=== PATIENT | female | born 1995 | race Caucasian/White ===

== ENCOUNTER 2016-09-12 15:32 | Emergency (ER) | payer OTHER ==
[~2016-09-12] VITALS: Ht 152.4 cm; Wt 72.1 kg
[~2016-09-12 15:32] MED LIST: FERR1TAB13 PO; FOLI1TAB7 PO; LEVO50TA6 PO; METH2.5T PO; PROM25TA9 PO
[2016-09-12 15:46] VITALS: TEMP 36.9; Ht 152.4 cm; Wt 72.1 kg
[2016-09-12] MEDS ORDERED: ONDANSETRON INJ 2 MG/ML 2 ML VIAL IV STA ×2 (16:45→17:20)
[2016-09-12 16:55] LABS: URINE APPEARANCE CLEAR (CLEAR); URINE BILIRUBIN NEG (NEG); URINE COLOR YELLOW; URINE NITRITE NEG (NEG); URINE PH 6.5 (4.5-7.5); URINE SPECIFIC GRAVITY 1.006 (1.000-1.030); UROBILINOGEN NEG (NEG)
[2016-09-12 17:03] LABS: MANUAL MICROSCOPIC REQUIRED? NO; REVIEW REQ? NO
[2016-09-12 17:09] LABS: BASO % 0.3 %; BASO ABS # 0.02 K/uL (0-0.2); COMPLETE YES; EOS % 0.4 %; HEMATOCRIT 42.9 % (37-47); IG% 0.1 %; LYMPH % 36.3 %; MEAN CELL VOLUME 87.6 fL (80-100); MEAN CORPUSCULAR HGB CONC 34.3 g/dl (32-36); MEAN PLATELET VOLUME 9.2 fL (7.4-10.4); MONO % 8.3 %; NEUT % 54.6 %; PLATELET COUNT 418 K/uL (130-400); WHITE BLOOD COUNT 6.88 K/uL (4.8-10.8)
[2016-09-12] MEDS ORDERED: BCPILLS PO (17:15)
[2016-09-12] MEDS ORDERED: FERR325T5 PO (17:15)
[2016-09-12] MEDS ORDERED: METH2.5T PO (17:15)
[2016-09-12 17:33] LABS: ALT/SGPT 410 U/L (12-78); AST/SGOT 127 U/L (15-37); BLOOD UREA NITROGEN 7 mg/dl (7-18); BUN/CREATININE RATIO 7.7 (10-20); CALCIUM 9.3 mg/dl (8.5-10.1); CARBON DIOXIDE 26 mmol/L (21-32); CHLORIDE 102 mmol/L (98-107); CREATININE 0.87 mg/dl (0.60-1.20); GLUCOSE 84 mg/dl (70-99); POTASSIUM 3.5 mmol/L (3.5-5.1); SODIUM 139 mmol/L (136-145)
[2016-09-12 17:35] LABS: ALKALINE PHOSPHATASE 55 U/L (45-117)
[2016-09-12 18:21] LABS: PARTIAL THROMBOPLASTIN RATIO 1.1; PROTHROMBIN TIME (PATIENT) 10.3 SECONDS (9.0-12.0)
[2016-09-12] MEDS ORDERED: OPTIRAY 320 IV PRN (18:45)
[2016-09-12] MEDS ORDERED: MoRPHine SULFATE 2 MG/ML CARP IV STA (19:44)
--- NOTE | 2016-09-12 19:44 | DIAGNOSTIC IMAGING REPORT ---
ABDOMEN AND PELVIS CT WITH IV AND ORAL CONTRAST CT DOSE: 298.75 mGy.cm HISTORY: Flank pain eval for malcom TECHNIQUE: Multiaxial CT images of the abdomen and pelvis were performed following the use of intravenous and oral contrast. COMPARISON STUDY: None. FINDINGS: Lung bases are clear. The spleen and pancreas enhance uniformly. Kidneys negative for hydronephrosis. No evidence for gallbladder distention. Apparent thickening of several proximal small bowel loops in the left upper quadrant. This is most likely technical due to lack of distention. Several small reactive mesenteric nodes The appendix is normal. No evidence of bowel obstructive change. 1.5 cm right ovarian cyst. Bladder is midline. No significant free fluid within the pelvic cul-de-sac. IMPRESSION: 1. Normal appendix. 2. Nonobstructive bowel pattern. 3. Small right ovarian cyst. 4. Mild mesenteric adenitis. Electronically signed by: Sebas Crawford M.D. 09/12/2016 7:43 PM Dictated Date/Time: 09/12/2016 7:41 PM
[2016-09-12] MEDS ORDERED: KETOROLAC TROMETHAMINE 30 MG/ML VIAL IV STA (19:52)
[2016-09-12 20:13] VITALS: BP 120/78; PULSE 80; O2SAT 97
--- NOTE | 2016-09-12 20:22 | EMERGENCY ROOM VISIT NOTE ---
History Report prepared by Eldon: Cami Nguyen Under the Supervision of: Dr. En Jauregui M.D. First contact with patient: 16:37 Chief Complaint: ABDOMINAL PAIN Stated Complaint: LOWER RT ABD PAIN,HX OF APPEDICITIS Nursing Triage Summary: lower right abdominal pain. started in the middle of the night. denies n/v/d. I have a family hx of appy's and I want to get checked out History of Present Illness The patient is a 20 year old female who presents to the Emergency Room with complaints of constant sharp RLQ abdominal pain beginning last night. The patient states that the pain woke her up in the middle of the night and she was not able to go back to sleep. She notes that putting pressure on the area relieves her pain and releasing worsens the pain. She complains of nausea and worsening pain throughout the day. The patient notes that her pain has spread outward and is not as localized as it was last night. She denies any fever, vomiting, diarrhea, chance of , urinary symptoms, and abnormal vaginal discharge or bleeding. Source of History: patient Onset: last night Position: abdomen (RLQ) Quality: sharp Timing: constant Modifying Factors (Worsening): other (release) Modifying Factors (Relieving): other (pressure) Associated Symptoms: + nausea, No diarrhea, No fevers, No urinary symptoms, No vomiting Note: She denies any abnormal vaginal discharge or bleeding. Review of Systems See HPI for pertinent positives & negatives. A total of 10 systems reviewed and were otherwise negative. Past Medical & Surgical Medical Problems: (1) No chronic problems Family History Appendicitis \ Social History Smoking Status: Never Smoker Marital Status: single Housing Status: lives with roommate Occupation Status: [employer] student Current/Historical Medications Scheduled Control Pills ( Control Pills), 1 TAB PO DAILY Ferrous Sulfate (Ferrous Sulfate), 650 MG PO DAILY Folic Acid (Folvite), 1 MG PO DAILY Levothyroxine Sodium (Levothyroxine Sodium), 50 MCG PO DAILY Methotrexate Sodium (Methotrexate), 6 TAB PO WK Allergies Coded Allergies: No Known Allergies (Unverified , 06/24/16) Physical Exam Vital Signs Date Time Temp Pulse Resp B/P Pulse Ox O2 Delivery O2 Flow Rate FiO2 09/12/16 20:13 80 16 120/78 97 09/12/16 19:14 77 16 132/88 98 Room Air 09/12/16 17:46 82 16 126/77 97 Room Air 09/12/16 15:46 36.9 85 18 152/87 100 Physical Exam Constitutional: Vital signs reviewed. Eyes: Pupils are equal round reactive to light. Conjunctiva are noninjected. ENT: Pharynx is clear without erythema or exudate. Mucous membranes are moist. Neck supple without meningeal signs. Respiratory: Clear to auscultation bilaterally. Breath sounds are equal bilaterally. Cardiovascular: Regular rate and rhythm. No rubs or gallops. GI: Soft, nondistended. Bowel sounds are present. RLQ tenderness, no guarding or rebound. Musculoskeletal: No peripheral edema. No CVA tenderness. Integumentary: No cyanosis. Neurological: The patient is awake and alert. No focal deficits. Psychiatric: Normal affect. Medical Decision & Procedures ER Provider Diagnostic Interpretation: CT results as stated below per my review and radiologist interpretation. ABDOMEN AND PELVIS CT WITH IV AND ORAL CONTRAST FINDINGS: Lung bases are clear. The spleen and pancreas enhance uniformly. Kidneys negative for hydronephrosis. No evidence for gallbladder distention. Apparent thickening of several proximal small bowel loops in the left upper quadrant. This is most likely technical due to lack of distention. Several small reactive mesenteric nodes The appendix is normal. No evidence of bowel obstructive change. 1.5 cm right ovarian cyst. Bladder is midline. No significant free fluid within the pelvic cul-de-sac. IMPRESSION: 1. Normal appendix. 2. Nonobstructive bowel pattern. 3. Small right ovarian cyst. 4. Mild mesenteric adenitis. Electronically signed by: Sebas Crawford M.D. 09/12/2016 7:43 PM Dictated Date/Time: 09/12/2016 7:41 PM Laboratory Results 09/12/16 16:50 Red Blood Count 4.90, Mean Corpuscular Volume 87.6, Mean Corpuscular Hemoglobin 30.0, Mean Corpuscular Hemoglobin Concent 34.3, Mean Platelet Volume 9.2, Neutrophils (%) (Auto) 54.6, Lymphocytes (%) (Auto) 36.3, Monocytes (%) (Auto) 8.3, Eosinophils (%) (Auto) 0.4, Basophils (%) (Auto) 0.3, Neutrophils # (Auto) 3.75, Lymphocytes # (Auto) 2.50, Monocytes # (Auto) 0.57, Eosinophils # (Auto) 0.03, Basophils # (Auto) 0.02 09/12/16 16:50 Test 09/12/16 16:40 09/12/16 16:50 Urine Color YELLOW Urine Appearance CLEAR (CLEAR) Urine pH 6.5 (4.5-7.5) Urine Specific [place] 1.006 (1.000-1.030) Urine Protein NEG (NEG) Urine Glucose (UA) NEG (NEG) Urine Ketones NEG (NEG) Urine Occult Blood NEG (NEG) Urine Nitrite NEG (NEG) Urine Bilirubin NEG (NEG) Urine Urobilinogen NEG (NEG) Urine Leukocyte Esterase NEG (NEG) Urine Test NEG (NEG) White Blood Count 6.88 K/uL (4.8-10.8) Red Blood Count 4.90 M/uL (4.2-5.4) Hemoglobin 14.7 g/dL (12.0-16.0) Hematocrit 42.9 % (37-47) Mean Corpuscular Volume 87.6 fL (80-100) Mean Corpuscular Hemoglobin 30.0 pg (25-34) Mean Corpuscular Hemoglobin Concent 34.3 g/dl (32-36) Platelet Count 418 K/uL (130-400) Mean Platelet Volume 9.2 fL (7.4-10.4) Neutrophils (%) (Auto) 54.6 % Lymphocytes (%) (Auto) 36.3 % Monocytes (%) (Auto) 8.3 % Eosinophils (%) (Auto) 0.4 % Basophils (%) (Auto) 0.3 % Neutrophils # (Auto) 3.75 K/uL (1.4-6.5) Lymphocytes # (Auto) 2.50 K/uL (1.2-3.4) Monocytes # (Auto) 0.57 K/uL (0.11-0.59) Eosinophils # (Auto) 0.03 K/uL (0-0.5) Basophils # (Auto) 0.02 K/uL (0-0.2) RDW Standard Deviation 42.2 fL (36.4-46.3) RDW Coefficient of Variation 13.3 % (11.5-14.5) Immature Granulocyte % (Auto) 0.1 % Immature Granulocyte # (Auto) 0.01 K/uL (0.00-0.02) Prothrombin Time 10.3 SECONDS (9.0-12.0) Prothromb Time International Ratio 1.0 (0.9-1.1) Activated Partial Thromboplast Time 28.9 SECONDS (21.0-31.0) Partial Thromboplastin Ratio 1.1 Anion Gap 11.0 mmol/L (3-11) Est Creatinine Clear Calc Drug Dose 91.4 ml/min Estimated GFR () 111.1 Estimated GFR (Non- 95.9 BUN/Creatinine Ratio 7.7 (10-20) Calcium Level 9.3 mg/dl (8.5-10.1) Total Bilirubin 0.2 mg/dl (0.2-1) Direct Bilirubin < 0.1 mg/dl (0-0.2) Aspartate Amino Transf (AST/SGOT) 127 U/L (15-37) Alanine Aminotransferase (ALT/SGPT) 410 U/L (12-78) Alkaline Phosphatase 55 U/L (45-117) Total Protein 8.4 gm/dl (6.4-8.2) Albumin 4.1 gm/dl (3.4-5.0) Lipase 205 U/L (73-393) Acetaminophen Level < 2 ug/ml (10-30) Hepatitis B Surface Antigen NEG (NEG) Hepatitis C Antibody NEG (NEG) Laboratory results as reviewed by me. Medications Administered Medications (Trade) Dose Ordered Sig/Sara Route Start Time Stop Time Status Last Admin Dose Admin Ondansetron HCl (Zofran Inj) 4 mg NOW STAT IV 09/12/16 16:45 09/12/16 16:46 DC 09/12/16 16:59 4 MG Ondansetron HCl (Zofran Inj) 4 mg NOW STAT IV 09/12/16 17:20 09/12/16 17:21 DC 09/12/16 17:24 4 MG Ketorolac Tromethamine (Toradol Inj) 15 mg NOW STAT IV 09/12/16 19:52 09/12/16 19:53 DC 09/12/16 20:00 15 MG ED Course 1637: The patient was evaluated in room B4. A complete history and physical exam was performed. 1645: Zofran Inj 4mg IV. 1720: Zofran Inj 4mg IV. 1825: I spoke to the patient about her test results. 1951: Toradol Inj 15mg IV. 1951: I went over the results with the patient. 1954: Upon reevaluation, the patient appeared to have improvement of her symptoms. I discussed tonzeke's findings with the patient. She verbalized agreement of the treatment plan. The patient was discharged home. Medical Decision This is a 20-year-old female who presents with right lower quadrant abdominal pain. Differential diagnosis includes appendicitis, perforation, abscess, ovarian cyst, ectopic , irritable bowel syndrome, inflammatory bowel disease. I did perform a limited focused review of portions of the patient's old chart on the electronic medical record. The patient has had no recent pertinent visits to this hospital. I did evaluate the patient as noted above. She is presenting with right lower abdominal pain and is concerned about appendicitis. She does have tenderness in the right lower abdomen. IV access was established. I did treat the patient with Zofran IV 2. She declined any pain medicine. I did order and personally review the patient's urinalysis as described above. Urine test is negative. I did order and review the patient's blood work as noted in the electronic medical record. Her white blood cell count is not elevated. I did order a CT of the abdomen and pelvis. I did review the images myself as well as the radiology report as described above. There is no evidence of appendicitis. She does have a right ovarian cyst as well as signs of mesenteric adenitis. I did discuss the test results with the patient. She did request some pain medication at this time is given Toradol IV. She was advised to follow closely with her doctor or [facility] for reevaluation. She was given discharge instructions as outlined below. Impression Primary Impression: RLQ abdominal pain Additional Impressions: Ovarian cyst Mesenteric adenitis Scribe Attestation The scribe's documentation has been prepared under my direct and personally reviewed by me in its entirety. I confirm that the note above accurately reflects all work, treatment, procedures, and medical decision making performed by me. Departure Information Dispostion Home / Self-Care Referrals No Doctor, Assigned (PCP) Forms HOME CARE DOCUMENTATION FORM, IMPORTANT VISIT INFORMATION Patient Instructions ED Adenitis Mesenteric, ED Cyst Ovarian, [facility] Additional Instructions You have been examined and treated today on an emergency basis only. This is not a substitute for, or an effort to provide, complete comprehensive medical care. It is impossible to recognize and treat all injuries or illnesses in a single emergency department visit. It is therefore important that you follow up closely with [facility]. Call as soon as possible for an appointment. Return for worsening symptoms or if you develop fever, vomiting, or any other concerning symptoms. Problem Qualifiers Additional Impressions: Ovarian cyst Laterality: right Qualified Codes: N83.201 - Unspecified ovarian cyst, right side
[2016-09-23] MEDS ORDERED: ONDA8TAB62 SL (11:49)
== END 2016-09-12 20:14 | disposition home or self-care (01) ==
LOC: C.EDB 15:33
DX: R10.31 Right lower quadrant pain (principal); N83.201 Unspecified ovarian cyst, right side; I88.0 Nonspecific mesenteric lymphadenitis; R11.0 Nausea; Z79.3 Long term (current) use of hormonal contraceptives; Z79.899 Other long term (current) drug therapy

== ENCOUNTER 2016-09-16 00:41 | Inpatient (IN) | payer OTHER ==
[~2016-09-16] VITALS: Ht 152.4 cm; Wt 71.8 kg
[~2016-09-16 00:41] MED LIST changes: +BCPILLS PO; -FERR1TAB13 PO; +FERR325T5 PO; -PROM25TA9 PO
[2016-09-16] MEDS ORDERED: SODIUM CHLORIDE 0.9% 1000ML 1,000 ML IV STA (00:57)
[2016-09-16] MEDS ORDERED: ONDANSETRON INJ 2 MG/ML 2 ML VIAL IV STA (00:57)
[2016-09-16] MEDS ORDERED: MoRPHine SULFATE 10 MG/ML CARP/VIAL IV STA (00:57)
[2016-09-16 01:27] LABS: BASO % 0.1 %; BASO ABS # 0.01 K/uL (0-0.2); COMPLETE YES; EOS % 0.6 %; HEMATOCRIT 37.8 % (37-47); IG% 0.2 %; LYMPH % 18.8 %; LYMPH ABS # 1.61 K/uL (1.2-3.4); MEAN CELL VOLUME 86.7 fL (80-100); MEAN CORPUSCULAR HEMOGLOBIN 30.3 pg (25-34); MEAN CORPUSCULAR HGB CONC 34.9 g/dl (32-36); MEAN PLATELET VOLUME 8.9 fL (7.4-10.4); MONO % 8.5 %; NEUT % 71.8 %; PLATELET COUNT 384 K/uL (130-400); RED BLOOD COUNT 4.36 M/uL (4.2-5.4); WHITE BLOOD COUNT 8.58 K/uL (4.8-10.8)
[2016-09-16] MEDS ORDERED: CHOL1000 PO (01:29)
[2016-09-16 01:48] LABS: ALT/SGPT 125 U/L (12-78); AST/SGOT 20 U/L (15-37); BLOOD UREA NITROGEN 20 mg/dl (7-18); BUN/CREATININE RATIO 6.5 (10-20); CALCIUM 9.3 mg/dl (8.5-10.1); CARBON DIOXIDE 23 mmol/L (21-32); CHLORIDE 105 mmol/L (98-107); GLUCOSE 118 mg/dl (70-99); POTASSIUM 3.7 mmol/L (3.5-5.1); SODIUM 141 mmol/L (136-145)
[2016-09-16 01:51] LABS: ALKALINE PHOSPHATASE 53 U/L (45-117)
[2016-09-16] MEDS ORDERED: MAGNESIUM HYDROXIDE SUSP 30 ML UDC PO PRN (02:15)
[2016-09-16] MEDS ORDERED: ALUMINUM/MAGNESIUM/SIMETH (MAALOX MAX) 30 ML UDC PO PRN (02:15)
[2016-09-16] MEDS ORDERED: ACETAMINOPHEN 325 MG TAB PO PRN (02:15)
[2016-09-16 02:18] LABS: URINE APPEARANCE CLEAR (CLEAR); URINE BILIRUBIN NEG (NEG); URINE COLOR YELLOW; URINE EPITHELIAL CELL AUTO >30 /lpf (0-5); URINE NITRITE NEG (NEG); URINE PH 5.5 (4.5-7.5); URINE SPECIFIC GRAVITY 1.003 (1.000-1.030); UROBILINOGEN NEG (NEG); ZZUR CULT IF INDIC CLEAN CATCH NO
[2016-09-16 02:23] LABS: MANUAL MICROSCOPIC REQUIRED? NO; REVIEW REQ? NO
--- NOTE | 2016-09-16 02:23 | EMERGENCY ROOM VISIT NOTE ---
History Report prepared by Jagibbautista: Jaison Coronado Under the Supervision of: Dr. Scott Aceves M.D. First contact with patient: 00:49 Chief Complaint: ABDOMINAL PAIN Stated Complaint: LOWER ABD PAIN/BACK PAIN Nursing Triage Summary: Patient here Wednesday and dx with mesenteric adenitis. Tonight, pain is worsening. C/o abdominal pain with radiation into back. History of Present Illness The patient is a 20 year old female who presents to the Emergency Room with complaints of worsening bilateral lower abdominal pain beginning this week. She was seen in the ED three days ago for similar symptoms and was diagnosed with mesenteric adenitis. She denies any leg swelling, urinary symptoms, rashes, black or bloody stool, fevers, or chills. The patient states that her pain radiates into her lower back. She is on Methotrexate for rheumatoid arthritis, and states that she has been on it for about six months. She has taken Ibuprofen for her pain, but has seen minimal relief. The patient states that she has had a normal bowel movement today. She notes that she may have had neurovirus two weeks ago. She states that her mesenteric adenitis was identified by CT, and a unilateral ovarian cyst was also identified. Source of History: patient Onset: This week Position: abdomen (bilateral lower) Timing: worsening Associated Symptoms: + back pain, No chest pain, No fevers, No hematochezia , No melena, No rash Note: The patient denies any leg swelling. Review of Systems See HPI for pertinent positives & negatives. A total of 10 systems reviewed and were otherwise negative. Past Medical & Surgical Medical Problems: (1) Acute kidney failure (2) No chronic problems (3) Rheumatoid arthritis Family History Appendicitis Social History Smoking Status: Never Smoker Marital Status: single Housing Status: lives with roommate Occupation Status: [employer] student Current/Historical Medications Scheduled Control Pills ( Control Pills), 1 TAB PO DAILY Cholecalciferol (Vitamin D3), 1 TAB PO DAILY Ferrous Sulfate (Ferrous Sulfate), 650 MG PO DAILY Folic Acid (Folvite), 1 MG PO DAILY Levothyroxine Sodium (Levothyroxine Sodium), 50 MCG PO DAILY Methotrexate Sodium (Methotrexate), 6 TAB PO WK Allergies Coded Allergies: No Known Allergies (Unverified , 09/16/16) Physical Exam Vital Signs Date Time Temp Pulse Resp B/P Pulse Ox O2 Delivery O2 Flow Rate FiO2 09/16/16 02:17 79 18 136/83 96 Room Air 09/16/16 00:44 36.8 91 18 141/92 97 Room Air Physical Exam GENERAL: Patient is uncomfortable appearing and in mild distress. HEENT: No acute trauma, normocephalic atraumatic, mucous membranes are dry, no nasal congestion, no scleral icterus. NECK: No stridor, no adenopathy, no meningismus, trachea is midline. LUNGS: No dyspnea. Clear to auscultation and equal bilaterally. No wheeze, no rhonchi. HEART: Regular rate and rhythm. No murmurs, rubs, gallops appreciated. ABDOMEN: Diffuse mild tenderness throughout entire abdomen. Worse over lower abdomen. No rebound or guarding. Normal bowel sounds. No masses. BACK: No midline tenderness, no CVA tenderness EXTREMITIES: Normal motion all extremities, no cyanosis, no edema. NEUROLOGIC: Alert and oriented, no acute motor or sensory deficits, no focal weakness, cranial nerves grossly intact. SKIN: No rash, no jaundice, no diaphoresis. Medical Decision & Procedures Laboratory Results 09/16/16 01:05 Red Blood Count 4.36, Mean Corpuscular Volume 86.7, Mean Corpuscular Hemoglobin 30.3, Mean Corpuscular Hemoglobin Concent 34.9, Mean Platelet Volume 8.9, Neutrophils (%) (Auto) 71.8, Lymphocytes (%) (Auto) 18.8, Monocytes (%) (Auto) 8.5, Eosinophils (%) (Auto) 0.6, Basophils (%) (Auto) 0.1, Neutrophils # (Auto) 6.16, Lymphocytes # (Auto) 1.61, Monocytes # (Auto) 0.73, Eosinophils # (Auto) 0.05, Basophils # (Auto) 0.01 09/16/16 01:05 Test 09/16/16 01:05 09/16/16 02:05 White Blood Count 8.58 K/uL (4.8-10.8) Red Blood Count 4.36 M/uL (4.2-5.4) Hemoglobin 13.2 g/dL (12.0-16.0) Hematocrit 37.8 % (37-47) Mean Corpuscular Volume 86.7 fL (80-100) Mean Corpuscular Hemoglobin 30.3 pg (25-34) Mean Corpuscular Hemoglobin Concent 34.9 g/dl (32-36) Platelet Count 384 K/uL (130-400) Mean Platelet Volume 8.9 fL (7.4-10.4) Neutrophils (%) (Auto) 71.8 % Lymphocytes (%) (Auto) 18.8 % Monocytes (%) (Auto) 8.5 % Eosinophils (%) (Auto) 0.6 % Basophils (%) (Auto) 0.1 % Neutrophils # (Auto) 6.16 K/uL (1.4-6.5) Lymphocytes # (Auto) 1.61 K/uL (1.2-3.4) Monocytes # (Auto) 0.73 K/uL (0.11-0.59) Eosinophils # (Auto) 0.05 K/uL (0-0.5) Basophils # (Auto) 0.01 K/uL (0-0.2) RDW Standard Deviation 42.0 fL (36.4-46.3) RDW Coefficient of Variation 13.2 % (11.5-14.5) Immature Granulocyte % (Auto) 0.2 % Immature Granulocyte # (Auto) 0.02 K/uL (0.00-0.02) Anion Gap 13.0 mmol/L (3-11) Est Creatinine Clear Calc Drug Dose 25.6 ml/min Estimated GFR () 23.9 Estimated GFR (Non- 20.6 BUN/Creatinine Ratio 6.5 (10-20) Calcium Level 9.3 mg/dl (8.5-10.1) Total Bilirubin 0.3 mg/dl (0.2-1) Direct Bilirubin < 0.1 mg/dl (0-0.2) Aspartate Amino Transf (AST/SGOT) 20 U/L (15-37) Alanine Aminotransferase (ALT/SGPT) 125 U/L (12-78) Alkaline Phosphatase 53 U/L (45-117) Total Protein 7.5 gm/dl (6.4-8.2) Albumin 3.5 gm/dl (3.4-5.0) Lipase 142 U/L (73-393) Urine Color YELLOW Urine Appearance CLEAR (CLEAR) Urine pH 5.5 (4.5-7.5) Urine Specific [place] 1.003 (1.000-1.030) Urine Protein 2+ (NEG) Urine Glucose (UA) NEG (NEG) Urine Ketones NEG (NEG) Urine Occult Blood TRACE (NEG) Urine Nitrite NEG (NEG) Urine Bilirubin NEG (NEG) Urine Urobilinogen NEG (NEG) Urine Leukocyte Esterase NEG (NEG) Urine WBC (Auto) 1-5 /hpf (0-5) Urine RBC (Auto) 5-10 /hpf (0-4) Urine Hyaline Casts (Auto) 1-5 /lpf (0-5) Urine Epithelial Cells (Auto) >30 /lpf (0-5) Urine Bacteria (Auto) NEG (NEG) Urine Test NEG (NEG) Medications Administered Medications (Trade) Dose Ordered Sig/Sara Route Start Time Stop Time Status Last Admin Dose Admin Morphine Sulfate (MoRPHine SULFATE INJ) 6 mg NOW STAT IV 09/16/16 00:57 09/16/16 00:58 DC 09/16/16 01:26 6 MG Ondansetron HCl 4 mg 4 mg NOW STAT IV 09/16/16 00:57 09/16/16 00:58 DC 09/16/16 01:26 4 MG Sodium Chloride (Nss 1000ml) 1,000 ml @ 999 mls/hr Q1H1M STAT IV 09/16/16 00:57 09/16/16 01:57 DC 09/16/16 01:27 999 MLS/HR Ondansetron HCl (Zofran Inj) 4 mg Q6H PRN IV 09/16/16 02:15 10/16/16 02:14 09/16/16 02:50 4 MG ED Course 0052: The patient was evaluated in room A12B. A complete history and physical exam was performed. 0057: Ordered Sodium Chloride 1000 ml @ 999 mls/hr, Zofran 4 mg IV, Morphine Sulfate 6 mg IV. 0142: Upon reevaluation, the patient is resting comfortably. Discussed results and treatment plan with the patient. She verbalized understanding and agreement with the treatment plan. 0222: The patient will be evaluated for further management. Medical Decision Differential: Appendicitis, Diverticulitis, PUD/Gastritis, Biliary Pathology, UTI, Pyelonephritis, Renal Colic, Bowel Obstruction, Aortic Pathology, Acute Coronary Syndrome, amongst other pathologies entertained. 20 yr old female arrives with continued abdominal pain after being diagnosed with mesenteric adenitis 3 days earlier. Nonsurgical abdominal exam here though with continued pain felt reasonable getting repeat labs. Given morphine zofran fluids with improvement in pain. She has evidence of acute renal failure likely secondary to VLAD from combination dehydration (recent GI bug), NSAIDs, contrast and methotrexate she is on chronically. She otherwise looks quite well but with acute change in Cr I feel that bringing in for rehydration, nephro evals reasonable. She is stable without evidence of bacterial infection and has no peritonitis on examination. Consults Time Called: [phone] Consulting Physician: Dr. Sosa -[facility] [place] Returned Call: [phone] Discussed the patient's case. The patient will be evaluated for further treatment and disposition. Impression Primary Impression: VLAD (acute kidney injury) Additional Impression: Mesenteric adenitis Scribe Attestation The scribe's documentation has been prepared under my direction and personally reviewed by me in its entirety. I confirm that the note above accurately reflects all work, treatment, procedures, and medical decision making performed by me. Departure Information Dispostion Being Evaluated By Hospitalist Referrals No Doctor, Assigned (PCP) Patient Instructions [facility] Problem Qualifiers
[2016-09-16] MEDS ORDERED: SODIUM CHLORIDE 0.9% 1000ML 1,000 ML IV SCH (02:30)
--- NOTE | 2016-09-16 02:40 | History and Physical ---
History & Physical Date & Time of Service: Sep 16, 2016 at 02:26 Chief Complaint: Lower Abd Pain/Back Pain Primary Care Physician: [facility] History of Present Illness Source: patient This is a 20 yo f with RA on MTX that is presenting to us in VLAD. She was here on Sep 12 for abdominal pain and she was evaluation with a CT scan of the abdomen with contrast. She was also given a dose of Toradol. It was found that this pain may have been secondary to the mild mesenteric adenitis. She was d/c home. Since then she has had increasing pain in the RLQ which now affects the entire lower abdomen. She states it is a cramping like pain that waxes and wanes without aggravating/ alleviating factors. It was a 7/10 when she arrived and is now a 3/10. She has been using Ibuprofen for pain control, 200 mg q 8 hours. She has had no fever, joint pain, rash, change in U/O, change in BM, dizziness, chest pain or SOB. She mentions that she had norwalk virus 2 weeks prior. She has been taking MTX for an extended period of time for her RA. She follow with Dr Red in [facility]. She is due for her next dose of MTX on Wednesday. Past Medical/Surgical History Medical Problems: (1) No chronic problems Status: Resolved (2) Rheumatoid arthritis Status: Chronic Family History Appendicitis Social History Smoking Status: Never Smoker Smokeless Tobacco Use: No Alcohol Use: occasionally Drug Use: none Marital Status: single Occupational Status: [employer] student Allergies Coded Allergies: No Known Allergies (Unverified , 09/16/16) Home Medications Scheduled Control Pills ( Control Pills), 1 TAB PO DAILY Cholecalciferol (Vitamin D3), 1 TAB PO DAILY Ferrous Sulfate (Ferrous Sulfate), 650 MG PO DAILY Folic Acid (Folvite), 1 MG PO DAILY Levothyroxine Sodium (Levothyroxine Sodium), 50 MCG PO DAILY Methotrexate Sodium (Methotrexate), 6 TAB PO WK Review of Systems Constitutional: No fever Eyes: No worsening of vision Respiratory: No cough, No dyspnea at rest, No dyspnea on exertion, No shortness of breath, No sputum, No wheezing Cardiovascular: No chest pain Abdomen: + pain, + problem reported (decreased appetite), No constipation, No diarrhea, No nausea, No vomiting Musculoskeletal: No joint pain, No muscle pain Genitourinary - Female: No dysuria, No hematuria Endocrine: No fatigue Integumentary: No rash Physical Exam Vital Signs Date Time Temp Pulse Resp B/P Pulse Ox O2 Delivery O2 Flow Rate FiO2 09/16/16 00:44 36.8 91 18 141/92 97 Room Air General Appearance: WD/WN, no apparent distress Head: normocephalic, atraumatic Eyes: normal inspection ENT: normal ENT inspection Neck: supple Respiratory/Chest: lungs clear, normal breath sounds, no respiratory distress, no accessory muscle use Cardiovascular: regular rate, rhythm, no murmur Abdomen/GI: normal bowel sounds, non tender, soft, no organomegaly Back: normal inspection, no CVA tenderness Extremities/Musculoskelatal: no calf tenderness, no pedal edema, normal range of motion Neurologic/Psych: no motor/sensory deficits, alert, normal mood/affect, oriented x 3 Skin: normal color, warm/dry, no rash Lymphatic: no adenopathy Diagnostics Laboratory Results Results Past 24 Hours Test 09/16/16 01:05 09/16/16 02:05 Range/Units White Blood Count 8.58 4.8-10.8 K/uL Red Blood Count 4.36 4.2-5.4 M/uL Hemoglobin 13.2 12.0-16.0 g/dL Hematocrit 37.8 37-47 % Mean Corpuscular Volume 86.7 80-100 fL Mean Corpuscular Hemoglobin 30.3 25-34 pg Mean Corpuscular Hemoglobin Concent 34.9 32-36 g/dl Platelet Count 384 130-400 K/uL Mean Platelet Volume 8.9 7.4-10.4 fL Neutrophils (%) (Auto) 71.8 % Lymphocytes (%) (Auto) 18.8 % Monocytes (%) (Auto) 8.5 % Eosinophils (%) (Auto) 0.6 % Basophils (%) (Auto) 0.1 % Neutrophils # (Auto) 6.16 1.4-6.5 K/uL Lymphocytes # (Auto) 1.61 1.2-3.4 K/uL Monocytes # (Auto) 0.73 0.11-0.59 K/uL Eosinophils # (Auto) 0.05 0-0.5 K/uL Basophils # (Auto) 0.01 0-0.2 K/uL RDW Standard Deviation 42.0 36.4-46.3 fL RDW Coefficient of Variation 13.2 11.5-14.5 % Immature Granulocyte % (Auto) 0.2 % Immature Granulocyte # (Auto) 0.02 0.00-0.02 K/uL Sodium Level 141 136-145 mmol/L Potassium Level 3.7 3.5-5.1 mmol/L Chloride Level 105 98-107 mmol/L Carbon Dioxide Level 23 21-32 mmol/L Anion Gap 13.0 3-11 mmol/L Blood Urea Nitrogen 20 7-18 mg/dl Creatinine 3.10 0.60-1.20 mg/dl Est Creatinine Clear Calc Drug Dose 25.6 ml/min Estimated GFR () 23.9 Estimated GFR (Non- 20.6 BUN/Creatinine Ratio 6.5 10-20 Random Glucose 118 70-99 mg/dl Calcium Level 9.3 8.5-10.1 mg/dl Total Bilirubin 0.3 0.2-1 mg/dl Direct Bilirubin < 0.1 0-0.2 mg/dl Aspartate Amino Transf (AST/SGOT) 20 15-37 U/L Alanine Aminotransferase (ALT/SGPT) 125 12-78 U/L Alkaline Phosphatase 53 45-117 U/L Total Protein 7.5 6.4-8.2 gm/dl Albumin 3.5 3.4-5.0 gm/dl Lipase 142 73-393 U/L Urine Color YELLOW Urine Appearance CLEAR CLEAR Urine pH 5.5 4.5-7.5 Urine Specific [place] 1.003 1.000-1.030 Urine Protein 2+ NEG Urine Glucose (UA) NEG NEG Urine Ketones NEG NEG Urine Occult Blood TRACE NEG Urine Nitrite NEG NEG Urine Bilirubin NEG NEG Urine Urobilinogen NEG NEG Urine Leukocyte Esterase NEG NEG Urine WBC (Auto) 1-5 0-5 /hpf Urine RBC (Auto) 5-10 0-4 /hpf Urine Hyaline Casts (Auto) 1-5 0-5 /lpf Urine Epithelial Cells (Auto) >30 0-5 /lpf Urine Bacteria (Auto) NEG NEG Urine Test NEG NEG Diagnostic Radiology [~ rep ct add3]] ABDOMEN AND PELVIS CT WITH IV AND ORAL CONTRAST CT DOSE: 298.75 mGy.cm HISTORY: Flank pain eval for malcom TECHNIQUE: Multiaxial CT images of the abdomen and pelvis were performed following the use of intravenous and oral contrast. COMPARISON STUDY: None. FINDINGS: Lung bases are clear. The spleen and pancreas enhance uniformly. Kidneys negative for hydronephrosis. No evidence for gallbladder distention. Apparent thickening of several proximal small bowel loops in the left upper quadrant. This is most likely technical due to lack of distention. Several small reactive mesenteric nodes The appendix is normal. No evidence of bowel obstructive change. 1.5 cm right ovarian cyst. Bladder is midline. No significant free fluid within the pelvic cul-de-sac. IMPRESSION: 1. Normal appendix. 2. Nonobstructive bowel pattern. 3. Small right ovarian cyst. 4. Mild mesenteric adenitis. Impression Assessment and Plan This is a 20 yo f with VLAD/ ATN possibly secondary to an iatrogenic source. VLAD secondary to an iatrogenic source - MTX held for now as is nephrotoxic - combination of this along with IV contrast and Toradol possible cause? - HIM - chart from [facility] in [place] - Consult nephro - NSS bolus and maintenance @ 200cc/h - BMP in am - renal USG Abdominal pain possibly secondary to mesenteric adenitis - morphine for pain control prn - Zofran for nausea - consult GI Rheumatoid arthritis - MTX held for now Hypothyroidism - Continue levothyroxine DVt Prophylaxis - scd FULL CODE Level of Care Med/Surg Resuscitation Status FULL RESUSCITATION VTE Prophylaxis VTE Risk Assessment Done? Y/N: Yes Risk Level: Low Given or contraindicated: SCD's Social Service Consult None Apply Note Total Time: Critical Care 30 - 74 minutes Assessment and Plan Attending Addendum: I have physically seen and examined this patient, have directed their medical care, have supervised the medical residents activities, and agree with the H&P as noted above, with the following changes: NONE The patient is a 20-year-old female with rheumatoid arthritis on methotrexate for 6 months, who developed abdominal discomfort and was seen in the emergency department here on September 12, at which time she had a CT scanner the abdomen with contrast, was diagnosed with a mild case a mesenteric adenitis, had been given a dose of Toradol, and was taking ibuprofen 200 mg 3 times daily in the interim. On the day of admission she developed significantly more abdominal discomfort and returned to the emergency department, at which time today her creatinine has significantly worsened to 3.1, her pain is controlled by morphine , and she is referred for evaluation for admission. She continues to have symptoms of nausea ,dizziness and headache accompanying the abdominal discomfort while in the emergency department. The patient denies chest pain, palpitations, shortness of breath, cough, lower extremity swelling, vision change, hearing change, sore throat, fevers, chills, sweats, weight change, vomiting, blood in urine or stool, dysuria, urinary frequency or urgency, memory loss, rash, abnormal bruising or bleeding, imbalance, focal weakness, numbness or tingling in arms or legs, arthralgias or myalgias, back or neck pain , night sweats, or allergy symptoms. The review of systems is otherwise negative other than for that already noted above, and at least 10 systems have been reviewed. The patient is awake, well-developed and adequately nourished, alert and oriented 3, normocephalic and atraumatic, lying in bed and in no acute distress. HEENT--PERRL, EOMI, mucous membranes and oropharynx dry. Neck--supple, no JVD or bruits, thyroid normal, trachea midline, no adenopathy. Heart--normal S1 and S2, no extra beats, no murmurs, rubs or gallops. Lungs--clear bilaterally with good air movement, no respiratory distress, no accessory muscle use. Abdomen--normal bowel sounds and soft, nontender and nondistended post morphine IV, no hernias or masses, no organomegaly. Extremities--no cyanosis, clubbing or edema. There are good distal pulses b/l. Dermatologic--normal skin turgor, normal color, warm and dry, no abnormal lymph nodes, no rash. Neurologic--cranial nerves II through XII grossly intact, motor and sensory examination normal. Rheumatologic--normal range of motion, nontender, muscles and joints. Psychiatric--normal affect. Assessment and Plan: Abdominal pain--patient will be admitted to the medical floor. Likely causes include the previously diagnosed mesenteric adenitis, would also consider NSAID- induced gastritis and/or ulcers. We'll keep her nothing by mouth, place her on Protonix 40 mg IV daily, and consult gastroenterology. Acute renal failure, likely secondary to ATN due to exposure to IV contrast dye along with NSAIDs--the patient be aggressively hydrated with IV fluids. We'll order a renal ultrasound. We'll consult nephrology. Urinalysis and urine culture is pending at this time. Abnormal liver enzymes--may be secondary to methotrexate, secondary to NSAID use , possibly secondary to underlying mesenteric adenitis.. Liver enzymes are presently improved from 410-125 over the past 4 days, but were normal in June 2016.
[2016-09-16] MEDS: ONDANSETRON INJ 2 MG/ML 2 ML VIAL IV PRN ×2 (02:50→10:16)
[2016-09-16 02:55] VITALS: BP 137/88; PULSE 67; TEMP 37.1; O2SAT 98
[2016-09-16] MEDS ORDERED: TRAMADOL HCL 50 MG TAB PO PRN (03:00)
[2016-09-16] MEDS ORDERED: MoRPHine SULFATE 4 MG/ML 1 ML CARP\\VIAL IV PRN (03:00)
[2016-09-16] MEDS: SODIUM CHLORIDE 0.9% 1000ML 1,000 ML IV SCH ×4 (03:56→20:28)
[2016-09-16 04:09] VITALS: Ht 152.4 cm; Wt 71.8 kg
[2016-09-16] MEDS: LEVOTHYROXINE 50 MCG TAB PO SCH (05:40)
[2016-09-16] MEDS ORDERED: INFLUENZA VIRUS QUAD VACCINE 0.5 ML SYR IM. ONE (07:00)
[2016-09-16] MEDS ORDERED: INFLUENZA ADMINISTRATION CHARGE ONE (07:00)
--- NOTE | 2016-09-16 07:20 | DIAGNOSTIC IMAGING REPORT ---
ULTRASOUND KIDNEYS AND BLADDER CLINICAL HISTORY: Acute renal insufficiency.. COMPARISON STUDY: Abdominal CT dated 09/12/16. TECHNIQUE: Real-time, grayscale, and color flow sonography of the kidneys and bladder is performed. Images are reviewed in the transverse and longitudinal planes. FINDINGS: Kidneys: The kidneys are normal in size and demonstrate slightly increased echotexture. The right kidney measures 11.2 x 5.7 x 5.7 cm and the left kidney measures 11.2 x 5.3 x 5.8 cm. There is no hydronephrosis. No shadowing renal calculi are identified. There is no sonographic evidence of contour deforming renal mass lesion. No perinephric fluid is identified. Bladder: The bladder is normal in appearance. Bilateral ureteral jets were seen. Upper abdomen: Survey images of the liver demonstrates hepatic steatosis. IMPRESSION: 1. The kidneys are normal in size and without hydronephrosis. 2. The kidneys demonstrate slightly increased cortical echotexture suggesting medical renal disease. Clinical correlation will be required. 3. The bladder is normal as visualized. 4. Hepatic steatosis. Electronically signed by: Avery Birch M.D. 09/16/2016 7:18 AM Dictated Date/Time: 09/16/2016 7:16 AM
[2016-09-16] MEDS ORDERED: NURSING VERBAL MED ORDER ONE (07:30)
[2016-09-16] MEDS ORDERED: MoRPHine SULFATE 2 MG/ML CARP ONE (07:35)
[2016-09-16] MEDS: MoRPHine SULFATE 2 MG/ML CARP IV PRN ×4 (07:39→18:39)
[2016-09-16] MEDS: FERROUS SULFATE 325 MG TAB PO SCH (07:40)
[2016-09-16] MEDS: BCP'S~ORDER AWAITING ACTION SCH ×2 (07:40→15:25)
[2016-09-16] MEDS: CHOLECALCIFEROL 1000 INTER.UNIT TAB PO SCH ×2 (07:43→10:13)
[2016-09-16 08:05] VITALS: BP 122/83; PULSE 59; TEMP 36.6; O2SAT 98
--- NOTE | 2016-09-16 08:27 | Gastroenterology Progress Note ---
Progress Note Date of Service: Sep 16, 2016 Subjective Pt evaluation today including: conversation w/ patient, physical exam, chart review, lab review, review of studies, review of inpatient medication list Medications Current Inpatient Medications Medications (Trade) Dose Ordered Sig/Sara Route Start Time Stop Time Status Last Admin Dose Admin Al Hydrox/Mg Hydrox/Simethicone (Maalox Max Susp) 15 ml Q4H PRN PO 09/16/16 02:15 10/16/16 02:14 Magnesium Hydroxide (Milk Of Magnesia Susp) 30 ml Q6H PRN PO 09/16/16 02:15 10/16/16 02:14 Ondansetron HCl (Zofran Inj) 4 mg Q6H PRN IV 09/16/16 02:15 10/16/16 02:14 09/16/16 02:50 4 MG Cholecalciferol (Vitamin D Tab) 1,000 inter.unit DAILY PO 09/16/16 09:00 10/16/16 08:59 09/16/16 07:43 1,000 INTER.UNIT Ferrous Sulfate (Feosol Tab) 650 mg DAILY PO 09/16/16 09:00 10/16/16 08:59 Folic Acid (Folvite Tab) 1 mg DAILY PO 09/16/16 09:00 10/16/16 08:59 Levothyroxine Sodium (Synthroid Tab) 50 mcg DAILYBB PO 09/16/16 06:00 10/16/16 05:59 09/16/16 05:40 50 MCG Miscellaneous Information 1 ea 1 ea QS N/A 09/16/16 08:00 10/16/16 07:59 Sodium Chloride 1,000 ml @ 200 mls/hr Q5H IV 09/16/16 03:15 09/16/16 18:14 09/16/16 07:54 200 MLS/HR Pantoprazole Sodium/Syringe (Protonix Inj/ Syringe) 10 ml @ 5 mls/min DAILY@11 IV 09/16/16 11:00 10/16/16 10:59 Morphine Sulfate (MoRPHine SULFATE INJ) 2 mg Q3H PRN IV 09/16/16 07:45 09/30/16 07:44 09/16/16 07:39 2 MG Objective Vital Signs Date Time Temp Pulse Resp B/P Pulse Ox O2 Delivery O2 Flow Rate FiO2 09/16/16 04:28 Room Air 09/16/16 04:09 Room Air 09/16/16 02:55 37.1 67 16 137/88 98 Room Air 09/16/16 02:17 79 18 136/83 96 Room Air 09/16/16 00:44 36.8 91 18 141/92 97 Room Air Laboratory Results Last 24 Hours Test 09/16/16 01:05 09/16/16 02:05 09/16/16 07:50 White Blood Count 8.58 K/uL Red Blood Count 4.36 M/uL Hemoglobin 13.2 g/dL Hematocrit 37.8 % Mean Corpuscular Volume 86.7 fL Mean Corpuscular Hemoglobin 30.3 pg Mean Corpuscular Hemoglobin Concent 34.9 g/dl Platelet Count 384 K/uL Mean Platelet Volume 8.9 fL Neutrophils (%) (Auto) 71.8 % Lymphocytes (%) (Auto) 18.8 % Monocytes (%) (Auto) 8.5 % Eosinophils (%) (Auto) 0.6 % Basophils (%) (Auto) 0.1 % Neutrophils # (Auto) 6.16 K/uL Lymphocytes # (Auto) 1.61 K/uL Monocytes # (Auto) 0.73 K/uL Eosinophils # (Auto) 0.05 K/uL Basophils # (Auto) 0.01 K/uL RDW Standard Deviation 42.0 fL RDW Coefficient of Variation 13.2 % Immature Granulocyte % (Auto) 0.2 % Immature Granulocyte # (Auto) 0.02 K/uL Sodium Level 141 mmol/L Potassium Level 3.7 mmol/L Chloride Level 105 mmol/L Carbon Dioxide Level 23 mmol/L Anion Gap 13.0 mmol/L Blood Urea Nitrogen 20 mg/dl Creatinine 3.10 mg/dl Est Creatinine Clear Calc Drug Dose 25.6 ml/min Estimated GFR () 23.9 Estimated GFR (Non- 20.6 BUN/Creatinine Ratio 6.5 Random Glucose 118 mg/dl Calcium Level 9.3 mg/dl Total Bilirubin 0.3 mg/dl Direct Bilirubin < 0.1 mg/dl Aspartate Amino Transf (AST/SGOT) 20 U/L Alanine Aminotransferase (ALT/SGPT) 125 U/L Alkaline Phosphatase 53 U/L Total Protein 7.5 gm/dl Albumin 3.5 gm/dl Lipase 142 U/L Urine Color YELLOW Urine Appearance CLEAR Urine pH 5.5 Urine Specific [place] 1.003 Urine Protein 2+ Urine Glucose (UA) NEG Urine Ketones NEG Urine Occult Blood TRACE Urine Nitrite NEG Urine Bilirubin NEG Urine Urobilinogen NEG Urine Leukocyte Esterase NEG Urine WBC (Auto) 1-5 /hpf Urine RBC (Auto) 5-10 /hpf Urine Hyaline Casts (Auto) 1-5 /lpf Urine Epithelial Cells (Auto) >30 /lpf Urine Bacteria (Auto) NEG Urine Test NEG Assessment and Plan GI consult dictated job: [id number] Lower abd pain-- elevated LFTs Abnormal SB on CT---proximal SB thickening LUQ small reactive lymph nodes on CT Etiology not clear. Differential includes viral etiology, Crohns disease less likely with abrupt onset. Doubt ischemic bowel with improving pain and nl CO2 but check lactic acid. Check titers for CMV, Monospot. Supportive care and if problems persist suggest SB evaluation with SBFT or colonoscopy to start. renal failure per hospitalist
[2016-09-16 08:34] LABS: BUN/CREATININE RATIO 6.3 (10-20); CALCIUM 8.3 mg/dl (8.5-10.1); CREATININE 2.9 mg/dl (0.60-1.20)
--- NOTE | 2016-09-16 09:03 | GASTROINTESTINAL CONSULTATION ---
DATE OF CONSULTATION: 09/16/2016 DATE OF CONSULTATION: 09/16/2016. REASON FOR CONSULTATION: Mesentery adenitis, worsening abdominal pain. CHIEF COMPLAINT OF PATIENT: Abdominal pain. HISTORY OF PRESENT ILLNESS: The patient stated that she had abrupt onset of right lower quadrant pain in the middle of the night, went to the Emergency Room 09/12/2016 with this complaint. At that time, CMP showed AST 127, ALT 410, otherwise normal. Lipase was normal. Abdomen and pelvic CT scan showed some thickened proximal small bowel loops in the left upper quadrant, some small reactive nodes, mesenteric adenitis, also 1.5 cm right ovarian cyst. The patient was sent home with the diagnosis of mesenteric adenitis. She was taking some ibuprofen but her pain persisted and became acutely worse. It was about 7/10 and became bilateral lower abdominal pain. She came into the Emergency Room again and was admitted. LFTs are better on admission. ALT with 118, otherwise unremarkable however creatinine was elevated at 3.1. The patient stated that she is drinking liquids fine but not eating as much. She had no dysphagia, no change in daily bowel movements. No bloody stools, no black stools. Abdominal pain is worse with eating. No history of liver disease. No GERD. No EGD or colonoscopy or need for GI care in the past. She is on methotrexate for rheumatoid arthritis, she had done so for several months. She did state that 2 weeks ago she had diarrheal illness with fever to 100.8 and some vomiting which resolved completely prior to this episode. PAST MEDICAL HISTORY: ALLERGIES: None. MEDICATIONS ON ADMISSION: Methotrexate, control pills, vitamin D3, iron, levothyroxine. PROBLEMS AND SURGERY: Rheumatoid arthritis. She has had a T\T\A in the past. She had Yi's thyroiditis. She has had left wrist arthroscopy. FAMILY HISTORY: Appendicitis. SOCIAL HISTORY: Tobacco negative, ethanol occasionally. REVIEW OF SYSTEMS: CONSTITUTIONAL: Weak. Eyes negative. EARS, NOSE, MOUTH, THROAT: Negative. CARDIOVASCULAR, RESPIRATORY, GENITOURINARY: Negative. MUSCULOSKELETAL: Arthritis. INTEGUMENTARY/NEUROLOGIC/ENDOCRINE, HEMATOLOGIC: Negative. PHYSICAL EXAMINATION: GENERAL: Female, appears stated age in no acute distress. VITAL SIGNS: Most recent vital signs in the chart, temp 37.1, pulse 67, respirations 16, BP 137/88, O2 saturation 98% on room air. EYES: Conjunctivae and lids normal. EARS, NOSE, THROAT: Oropharynx clear. NECK: Without obvious mass or thyroid enlargement. RESPIRATORY: Normal effort, clear to anterior auscultation. CARDIOVASCULAR: Regular rate and rhythm. EXTREMITIES: Without edema. ABDOMEN: Positive bowel sounds, soft, no guarding or rebound. No obvious organomegaly or masses are appreciated. Entire exam done with RN present. LYMPH NODES: No neck nor groin nodes. SKIN: Without obvious rash or induration. NEUROLOGIC: Cranial nerves intact. Sensation intact. PSYCHIATRIC: Recent and remote memory good. Insight and judgment good. DATA: Abdominal and pelvic CT scan from 09/12/2016 as above. Ultrasound kidneys and bladder this admission some renal disease, fatty liver. IMPRESSION AND PLAN: 1. Lower abdominal pain. 2. Elevated LFTs. 3. Abnormal small bowel on CT scan with proximal small thickening left upper quadrant. 4. Small reactive lymph node with CT. 5. Renal failure per hospitalist. PLAN: The etiology is not clear. The differential includes viral etiology, Crohn's disease less likely with abrupt onset. Doubt ischemic bowel with nl CO2 and improving pain but check lactate level. Check titers for CMV and Monospot, supportive care. If the problem persists suggest small bowel evaluation with small bowel follow through or colonoscopy as next steps. MTDD
[2016-09-16 09:20] LABS: ALKALINE PHOSPHATASE 43 U/L (45-117); ALT/SGPT 96 U/L (12-78); AST/SGOT 19 U/L (15-37)
[2016-09-16] MEDS: PANTOprazole INJ 40 MG in SYRINGE 0 ML IV SCH (10:14)
--- NOTE | 2016-09-16 11:59 | Family Medicine Progress Note ---
Progress Note Date of Service Sep 16, 2016. Subjective Pt evaluation today including: conversation w/ patient, physical exam, chart review, lab review The patient was seen and examined at bedside. Patient was admitted as NPO as of midnight. Denies being hungry. Complaining of continued abdominal pain that was lessened by morphine. Last received 3mg morphine at 4am, says that the morphine is wearing off. Patient is resting comfortably in bed. Continues to have moderate diffuse lower abdominal pain. Pt denies any other systemic symptoms (Fever, SOB, edema , chest pain, diarrhea, constipation). Plan of care was described to the patient and all questions were answered. Constitutional: No chills, No fever, No sweats Respiratory: No cough, No shortness of breath, No sputum, No wheezing Cardiovascular: No chest pain Abdomen: + nausea, + pain, No constipation, No diarrhea, No vomiting Neurologic: No memory loss, No numbness/tingling, No weakness Objective Physical Exam General Appearance: WD/WN, + mild distress Respiratory/Chest: chest non-tender, lungs clear, normal breath sounds, no respiratory distress, no accessory muscle use Cardiovascular: regular rate, rhythm, no edema, no gallop, no JVD, no murmur Abdomen: soft, + pertinent finding (Tender to light palpation in the RLQ, periumbilical and LLQ. No signs of rebound tenderness. Psoas sign negative. Normal bowel sounds. No discolorations or excoriations. No gaurding. ) Extremities: normal range of motion, non-tender, normal inspection, no pedal edema, no calf tenderness Neurologic/Psychiatric: alert, normal mood/affect, oriented x 3 Assessment and Plan 20F with PMH of RA on MTX presented into the ER with continued abdominal pain and was admitted for VLAD (creatinine 3.1) and continued abdominal pain. She was seen in the ER 4 days ago and was diagnosed with mesenteric adenitis. At that time she received a CT Abdo and Pelvis with contrast, IV toradol and has been taking Iburpofen 200mg TID for her pain. On admission pt was given Morphine IV PRN and a GI and nephrology consult were ordered. She is on 200ml NSS and her diet is clear fluids to advance as tolerated. No acute interventions plan at this point. Abdominal pain etiology unclear - Pt continues to have diffuse lower abdominal pain, not getting better. - Morphine increased to 2mg Q3 from 3mg Q4 PRN. - GI recommends - unlikely crohn's or ischemia, f/u Lactate, CMV, Monospot test and if pain doesn't improve UE to SB or lower endoscopy. - c/w Protonix 40mg IV daily. - c/w Zofran PRN for nausea. - continue to monitor. LVAD 2/2 to NSAIDS - Creatinine is 2.9<--3.1 - MTX held for now as is nephrotoxic, she is due for her next dose on Wednesday, receives it weekly. - HIM - chart from [facility] in [place] - Nephro consult pending. - Renal US report - 1. The kidneys are normal in size and without hydronephrosis. 2. The kidneys demonstrate slightly increased cortical echotexture suggesting medical renal disease. Clinical correlation will be required. 3. The bladder is normal as visualized. 4. Hepatic steatosis. - will repeat UA and Micro. - c/w NSS bolus and maintenance @ 200cc/h. - Continue to monitor creatinine. Elevated ALT - Unknown cause, patient is on OCPs, were normal in June, f/u toxicology screen. Rheumatoid arthritis - MTX held for now, NO NSAIDS. Hypothyroidism- c/w levothyroxine 50mcg. DVT Proph: Lovenox SQ daily, SCDs. Dispo: FULL CODE, mom is driving in from [place] today. Resident Involvement: Resident Care Provided Care Provided: Adult Hospital Medicine Reviewed: Pt Seen/Exam by Me Constitutional: denies: fever Respiratory: negative: short of breath Cardiovascular: denies chest pain Gastrointestinal/Abdominal: positive: abdominal pain (feel like sharp cramps) Genitourinary: negative dysuria, negative frequency General Appearance: no apparent distress Respiratory: lungs clear, no respiratory distress Cardiovascular: regular rate, rhythm Gastrointestinal: normal bowel sounds, soft, tenderness (low mid abdomen mild tenderness) Neurologic/Psychiatric: alert, oriented x 3 Skin Characteristics: warm/dry Assessment/Plan I have reviewed the medical record and performed a history and physical examination of this patient today. I have discussed the case with Dr. Yao. The above note reflects my findings, conclusions, and recommendations Pain uncontrolled with IV morphine - dose adjusted. Trial Levsin. Follow
[2016-09-16 12:07] LABS: URINE APPEARANCE CLEAR (CLEAR); URINE BILIRUBIN NEG (NEG); URINE COLOR YELLOW; URINE EPITHELIAL CELL AUTO >30 /lpf (0-5); URINE NITRITE NEG (NEG); URINE PH 5.5 (4.5-7.5); URINE SPECIFIC GRAVITY 1.001 (1.000-1.030); UROBILINOGEN NEG (NEG)
[2016-09-16 12:14] LABS: MANUAL MICROSCOPIC REQUIRED? NO; REVIEW REQ? NO
[2016-09-16] MEDS: ENOXAPARIN 30 MG/0.3 ML SYR SQ SCH (13:12)
[2016-09-16] MEDS: HYOSCYAMINE SULFATE 0.125 MG SL TAB PO PRN ×2 (13:23→14:18)
[2016-09-16 13:39] LABS: INR 1.7 (0.9-1.1); PROTHROMBIN TIME (PATIENT) 18.3 SECONDS (9.0-12.0)
--- NOTE | 2016-09-16 14:53 | Nephrology Consultation ---
Nephrology Consultation Date & Providers Date of Consultation: Sep 16, 2016. Primary Care Provider: [facility] Referring Provider: Reason for Consultation Acute renal insufficiency History of Present Illness Ashley DonnellynIs a 20-year-old female who was admitted to [facility] overnight with abdominal pain and acute renal injury. Past medical history is notable for rheumatoid arthritis for which she has been maintained on methotrexate. She also has hypothyroidism and chronic anemia. She initially presented to the emergency department at [facility] on September [address] of the abdomen with contrast was obtained. This study revealed mesenteric adenitis. She was treated for pain with IV Toradol. On discharge home. She has been using ibuprofen approximately 200 milligrams every 8 hours since that time for pain. She said within the past couple weeks she had recently suffered from viral gastroenteritis. Symptoms have been improving. Serum creatinine on September 12 was 0.8 milligrams/deciliter. The patient not aware of any prior history of acute kidney injury. Creatinine on presentation to MRSA) 3.1 milligram/deciliter. Metabolic profile also notable for serum bicarbonate of 20 %period% creatinine is improved to 2.9 this morning. Medical records were reviewed in detail today. Imaging studies including CT of the abdomen pelvis from September 12 were reviewed. Renal ultrasound obtained today documents normal appearing kidneys. Urinalysis is notable for 2+ protein , 1-5 WBC per high power field and 5-10 red blood cells per high-powered field. Hyaline casts were appreciated. Past Medical/Surgical History Medical: Rheumatoid arthritis, hypothyroidism, anemia. Surgical: Arthroplasty of wrist Allergies Coded Allergies: No Known Allergies (Unverified , 09/16/16) Inpatient Medications Current Inpatient Medications Medications (Trade) Dose Ordered Sig/Sara Route Start Time Stop Time Status Last Admin Dose Admin Al Hydrox/Mg Hydrox/Simethicone (Maalox Max Susp) 15 ml Q4H PRN PO 09/16/16 02:15 10/16/16 02:14 Magnesium Hydroxide (Milk Of Magnesia Susp) 30 ml Q6H PRN PO 09/16/16 02:15 10/16/16 02:14 Ondansetron HCl (Zofran Inj) 4 mg Q6H PRN IV 09/16/16 02:15 10/16/16 02:14 09/16/16 10:16 4 MG Cholecalciferol (Vitamin D Tab) 1,000 inter.unit DAILY PO 09/16/16 09:00 10/16/16 08:59 Ferrous Sulfate (Feosol Tab) 650 mg DAILY PO 09/16/16 09:00 10/16/16 08:59 Folic Acid (Folvite Tab) 1 mg DAILY PO 09/16/16 09:00 10/16/16 08:59 Levothyroxine Sodium (Synthroid Tab) 50 mcg DAILYBB PO 09/16/16 06:00 10/16/16 05:59 09/16/16 05:40 50 MCG Miscellaneous Information 1 ea 1 ea QS N/A 09/16/16 08:00 10/16/16 07:59 Sodium Chloride 1,000 ml @ 200 mls/hr Q5H IV 09/16/16 03:15 09/16/16 18:14 09/16/16 13:13 200 MLS/HR Pantoprazole Sodium/Syringe (Protonix Inj/ Syringe) 10 ml @ 5 mls/min DAILY@11 IV 09/16/16 11:00 10/16/16 10:59 09/16/16 10:14 5 MLS/MIN Morphine Sulfate (MoRPHine SULFATE INJ) 2 mg Q3H PRN IV 09/16/16 07:45 09/30/16 07:44 09/16/16 10:18 2 MG Hyoscyamine Sulfate (Levsin Tab) 0.125 mg Q4H PRN PO 09/16/16 11:45 10/16/16 11:44 09/16/16 14:18 0.125 MG Enoxaparin Sodium (Lovenox Inj) 30 mg QAM SQ 09/16/16 13:00 10/16/16 12:59 09/16/16 13:12 30 MG Family History Appendicitis Social History Smoking Status: Never Smoker Smokeless Tobacco Use: No Alcohol Use: occasionally Drug Use: none Marital Status: single Occupation: [employer] student Review of Systems A complete review of systems was performed. Pertinent positives are noted above. All other systems are negative. Physical Exam Date Time Temp Pulse Resp B/P Pulse Ox O2 Delivery O2 Flow Rate FiO2 09/16/16 08:05 36.6 59 16 122/83 98 Room Air 09/16/16 07:30 Room Air 09/16/16 04:28 Room Air 09/16/16 04:09 Room Air 09/16/16 02:55 37.1 67 16 137/88 98 Room Air 09/16/16 02:17 79 18 136/83 96 Room Air 09/16/16 00:44 36.8 91 18 141/92 97 Room Air General Appearance: WD/WN, no apparent distress Head: normocephalic, atraumatic Eyes: normal inspection, sclerae normal ENT: normal ENT inspection, pharynx normal Neck: supple, thyroid normal, no JVD Respiratory/Chest: lungs clear, no respiratory distress, no accessory muscle use Cardiovascular: regular rate, rhythm, no edema, no gallop, no JVD, no murmur Abdomen/GI: soft, + tenderness Extremities/Musculoskelatal: normal inspection, no pedal edema Neurologic/Psych: alert, oriented x 3 Skin: normal color Laboratory Results Last 24 Hours Test 09/16/16 00:00 09/16/16 01:05 09/16/16 02:05 09/16/16 07:50 White Blood Count 8.58 K/uL Red Blood Count 4.36 M/uL Hemoglobin 13.2 g/dL Hematocrit 37.8 % Mean Corpuscular Volume 86.7 fL Mean Corpuscular Hemoglobin 30.3 pg Mean Corpuscular Hemoglobin Concent 34.9 g/dl Platelet Count 384 K/uL Mean Platelet Volume 8.9 fL Neutrophils (%) (Auto) 71.8 % Lymphocytes (%) (Auto) 18.8 % Monocytes (%) (Auto) 8.5 % Eosinophils (%) (Auto) 0.6 % Basophils (%) (Auto) 0.1 % Neutrophils # (Auto) 6.16 K/uL Lymphocytes # (Auto) 1.61 K/uL Monocytes # (Auto) 0.73 K/uL Eosinophils # (Auto) 0.05 K/uL Basophils # (Auto) 0.01 K/uL RDW Standard Deviation 42.0 fL RDW Coefficient of Variation 13.2 % Immature Granulocyte % (Auto) 0.2 % Immature Granulocyte # (Auto) 0.02 K/uL Sodium Level 141 mmol/L 142 mmol/L Potassium Level 3.7 mmol/L 4.0 mmol/L Chloride Level 105 mmol/L 110 mmol/L Carbon Dioxide Level 23 mmol/L 20 mmol/L Anion Gap 13.0 mmol/L 12.0 mmol/L Blood Urea Nitrogen 20 mg/dl 18 mg/dl Creatinine 3.10 mg/dl 2.90 mg/dl Est Creatinine Clear Calc Drug Dose 25.6 ml/min 27.4 ml/min Estimated GFR () 23.9 25.9 Estimated GFR (Non- 20.6 22.4 BUN/Creatinine Ratio 6.5 6.3 Random Glucose 118 mg/dl 87 mg/dl Calcium Level 9.3 mg/dl 8.3 mg/dl Total Bilirubin 0.3 mg/dl Direct Bilirubin < 0.1 mg/dl Aspartate Amino Transf (AST/SGOT) 20 U/L Alanine Aminotransferase (ALT/SGPT) 125 U/L Alkaline Phosphatase 53 U/L Total Protein 7.5 gm/dl Albumin 3.5 gm/dl Lipase 142 U/L Urine Color YELLOW Urine Appearance CLEAR Urine pH 5.5 Urine Specific [place] 1.003 Urine Protein 2+ Urine Glucose (UA) NEG Urine Ketones NEG Urine Occult Blood TRACE Urine Nitrite NEG Urine Bilirubin NEG Urine Urobilinogen NEG Urine Leukocyte Esterase NEG Urine WBC (Auto) 1-5 /hpf Urine RBC (Auto) 5-10 /hpf Urine Hyaline Casts (Auto) 1-5 /lpf Urine Epithelial Cells (Auto) >30 /lpf Urine Bacteria (Auto) NEG Urine Test NEG Test 09/16/16 08:45 09/16/16 11:16 09/16/16 13:08 Lactic Acid Level 0.7 mmol/L Total Bilirubin 0.2 mg/dl Direct Bilirubin < 0.1 mg/dl Aspartate Amino Transf (AST/SGOT) 19 U/L Alanine Aminotransferase (ALT/SGPT) 96 U/L Alkaline Phosphatase 43 U/L Total Protein 6.1 gm/dl Albumin 2.9 gm/dl Monoscreen NEG Urine Color YELLOW Urine Appearance CLEAR Urine pH 5.5 Urine Specific [place] 1.001 Urine Protein 1+ Urine Glucose (UA) NEG Urine Ketones NEG Urine Occult Blood TRACE Urine Nitrite NEG Urine Bilirubin NEG Urine Urobilinogen NEG Urine Leukocyte Esterase NEG Urine WBC (Auto) 1-5 /hpf Urine RBC (Auto) 5-10 /hpf Urine Hyaline Casts (Auto) 0 /lpf Urine Epithelial Cells (Auto) >30 /lpf Urine Bacteria (Auto) NEG Prothrombin Time 18.3 SECONDS Prothromb Time International Ratio 1.7 Impression (1) VLAD (acute kidney injury) (2) Rheumatoid arthritis (3) Mesenteric adenitis (4) Nausea and vomiting Ashley is a 20-year-old female with acute kidney injury in the setting of recent viral gastroenteritis. She has persistent abdominal pain with imaging revealing mesenteric adenitis. Past medical history is notable for autoimmune thyroiditis and hypothyroidism as well as rheumatoid arthritis which she has been maintained on methotrexate. Renal ultrasound reveals no acute findings. There is no evidence chronic kidney disease on imaging or by prior laboratory studies. Serum creatinine was 0.8 milligrams/deciliter earlier this month. Urinalysis with microscopy was reviewed. She does have microscopic hematuria as well as proteinuria with a few white blood cells. Hyaline casts were appreciated per high-power field. Clinical presentation is consistent with multifactorial VLAD from prerenal azotemia, NSAID use and complicated by iodinated contrast and methotrexate. Recommendations -- Continue N0/9% NS @ 125 ml/hr -- Repeat metabolic profile tomorrow AM -- Hold Mtx -- Repeat urine analysis and microscopy in next 24-48 hours -- Avoid NSAIDS -- Document I/O's
[2016-09-16 15:06] VITALS: BP 130/89; PULSE 50; TEMP 36.6; O2SAT 98
[2016-09-16] MEDS: MoRPHine SULFATE 4 MG/ML 1 ML CARP\\VIAL IV PRN (21:44)
[2016-09-16 22:50] VITALS: BP 126/87; PULSE 73; TEMP 37.2; O2SAT 95
[2016-09-17] MEDS: MoRPHine SULFATE 4 MG/ML 1 ML CARP\\VIAL IV PRN ×3 (01:15→07:48)
[2016-09-17] MEDS: SODIUM CHLORIDE 0.9% 1000ML 1,000 ML IV SCH (03:55)
[2016-09-17] MEDS: LEVOTHYROXINE 50 MCG TAB PO SCH (06:21)
[2016-09-17] MEDS: ONDANSETRON INJ 2 MG/ML 2 ML VIAL IV PRN ×2 (07:48→20:48)
[2016-09-17] MEDS: BCP'S~ORDER AWAITING ACTION SCH ×3 (07:50→15:29)
[2016-09-17] MEDS: FERROUS SULFATE 325 MG TAB PO SCH (07:50)
[2016-09-17] MEDS: CHOLECALCIFEROL 1000 INTER.UNIT TAB PO SCH (07:50)
[2016-09-17] MEDS: ENOXAPARIN 30 MG/0.3 ML SYR SQ SCH (07:50)
[2016-09-17] MEDS: PANTOprazole INJ 40 MG in SYRINGE 0 ML IV SCH (07:51)
[2016-09-17] MEDS: HYOSCYAMINE SULFATE 0.125 MG SL TAB PO PRN ×2 (07:51→22:30)
[2016-09-17 07:56] LABS: BUN/CREATININE RATIO 4.9 (10-20); CALCIUM 8.3 mg/dl (8.5-10.1); CREATININE 3.6 mg/dl (0.60-1.20); POTASSIUM 4.4 mmol/L (3.5-5.1)
[2016-09-17 07:59] LABS: ALB/GLOB RATIO 0.7 (0.9-2)
[2016-09-17 08:04] VITALS: BP 133/88; PULSE 68; TEMP 37.2; O2SAT 95
[2016-09-17 08:15] LABS: COMPLETE YES; EOS % 0.1 %; HEMATOCRIT 34.5 % (37-47); IG% 0.2 %; LYMPH % 15.9 %; LYMPH ABS # 1.46 K/uL (1.2-3.4); MEAN CELL VOLUME 88.7 fL (80-100); MEAN CORPUSCULAR HEMOGLOBIN 30.1 pg (25-34); MEAN CORPUSCULAR HGB CONC 33.9 g/dl (32-36); MEAN PLATELET VOLUME 9.3 fL (7.4-10.4); MONO % 9.7 %; NEUT % 74.1 %; PLATELET COUNT 315 K/uL (130-400); RED BLOOD COUNT 3.89 M/uL (4.2-5.4); WHITE BLOOD COUNT 9.21 K/uL (4.8-10.8)
[2016-09-17] MEDS ORDERED: SODIUM BICARBONATE 8.4% INJ 75 MEQ in SODIUM CHLORIDE 0.45% 1000ML 1,000 ML IV ONE (09:30)
[2016-09-17] MEDS ORDERED: SODIUM BICARBONATE 8.4% INJ 75 MEQ in SODIUM CHLORIDE 0.45% 1000ML 1,000 ML IV SCH (09:30)
--- NOTE | 2016-09-17 10:13 | Nephrology Progress Note ---
Nephrology Progress Note Date of Service Sep 17, 2016. Chief Complaint Acute renal insufficiency Subjective Abdominal pain persists. Unable to tolerate PO. Denies nausea. Diffuse abdominal tenderness which is worse in the lower quadrants. No fevers or chills. No skin rashes. Chronic left wrist discomfort but no new synovitis, joint effusions or arthralgias. No skin rashes. No oral ulcers. Voiding urine without difficulty. Denies shortness of breath. Ashley's mother (Adia) was at the bedside today. Review of Systems A complete review of systems was performed. Pertinent positives are noted above. All other systems are negative. Vital Signs Last 8 Hrs Date Time Temp Pulse Resp B/P Pulse Ox O2 Delivery O2 Flow Rate FiO2 09/17/16 08:04 37.2 68 16 133/88 95 Room Air 09/17/16 07:30 Room Air I & O 24-Hour Column 09/17/16 08:00 Intake Total 3460 ml Output Total 3450 ml Balance 10 ml Last Recorded Weight Weight (Kilograms): 71.800 Physical Exam General Appearance: no apparent distress, + obese Head: normocephalic, atraumatic Eyes: normal inspection, sclerae normal ENT: normal ENT inspection, pharynx normal Neck: supple, no adenopathy, thyroid normal Respiratory/Chest: lungs clear, no respiratory distress, no accessory muscle use Cardiovascular: regular rate, rhythm, no gallop, no murmur Abdomen/GI: normal bowel sounds, soft, no organomegaly, + tenderness Extremities/Musculoskelatal: normal inspection, no pedal edema Neurologic/Psych: alert, normal mood/affect, oriented x 3 Family History Appendicitis Social History Smokeless Tobacco Use: No Alcohol Use: occasionally Drug Use: none Marital Status: single Occupation: [employer] student Laboratory Results Past 24 Hours 09/17/16 07:12 Red Blood Count 3.89, Mean Corpuscular Volume 88.7, Mean Corpuscular Hemoglobin 30.1, Mean Corpuscular Hemoglobin Concent 33.9, Mean Platelet Volume 9.3, Neutrophils (%) (Auto) 74.1, Lymphocytes (%) (Auto) 15.9, Monocytes (%) (Auto) 9.7, Eosinophils (%) (Auto) 0.1, Basophils (%) (Auto) 0.0, Neutrophils # (Auto) 6.83, Lymphocytes # (Auto) 1.46, Monocytes # (Auto) 0.89, Eosinophils # (Auto) 0.01, Basophils # (Auto) 0.00 09/17/16 07:12 Test 09/16/16 11:16 09/16/16 13:08 09/17/16 07:12 Urine Color YELLOW Urine Appearance CLEAR (CLEAR) Urine pH 5.5 (4.5-7.5) Urine Specific [place] 1.001 (1.000-1.030) Urine Protein 1+ (NEG) Urine Glucose (UA) NEG (NEG) Urine Ketones NEG (NEG) Urine Occult Blood TRACE (NEG) Urine Nitrite NEG (NEG) Urine Bilirubin NEG (NEG) Urine Urobilinogen NEG (NEG) Urine Leukocyte Esterase NEG (NEG) Urine WBC (Auto) 1-5 /hpf (0-5) Urine RBC (Auto) 5-10 /hpf (0-4) Urine Hyaline Casts (Auto) 0 /lpf (0-5) Urine Epithelial Cells (Auto) >30 /lpf (0-5) Urine Bacteria (Auto) NEG (NEG) Prothrombin Time 18.3 SECONDS (9.0-12.0) Prothromb Time International Ratio 1.7 (0.9-1.1) White Blood Count 9.21 K/uL (4.8-10.8) Red Blood Count 3.89 M/uL (4.2-5.4) Hemoglobin 11.7 g/dL (12.0-16.0) Hematocrit 34.5 % (37-47) Mean Corpuscular Volume 88.7 fL (80-100) Mean Corpuscular Hemoglobin 30.1 pg (25-34) Mean Corpuscular Hemoglobin Concent 33.9 g/dl (32-36) Platelet Count 315 K/uL (130-400) Mean Platelet Volume 9.3 fL (7.4-10.4) Neutrophils (%) (Auto) 74.1 % Lymphocytes (%) (Auto) 15.9 % Monocytes (%) (Auto) 9.7 % Eosinophils (%) (Auto) 0.1 % Basophils (%) (Auto) 0.0 % Neutrophils # (Auto) 6.83 K/uL (1.4-6.5) Lymphocytes # (Auto) 1.46 K/uL (1.2-3.4) Monocytes # (Auto) 0.89 K/uL (0.11-0.59) Eosinophils # (Auto) 0.01 K/uL (0-0.5) Basophils # (Auto) 0.00 K/uL (0-0.2) RDW Standard Deviation 43.4 fL (36.4-46.3) RDW Coefficient of Variation 13.5 % (11.5-14.5) Immature Granulocyte % (Auto) 0.2 % Immature Granulocyte # (Auto) 0.02 K/uL (0.00-0.02) Anion Gap 13.0 mmol/L (3-11) Est Creatinine Clear Calc Drug Dose 22.0 ml/min Estimated GFR () 20.0 Estimated GFR (Non- 17.2 BUN/Creatinine Ratio 4.9 (10-20) Lactic Acid Level 0.7 mmol/L (0.4-2.0) Calcium Level 8.3 mg/dl (8.5-10.1) Total Bilirubin 0.4 mg/dl (0.2-1) Aspartate Amino Transf (AST/SGOT) 18 U/L (15-37) Alanine Aminotransferase (ALT/SGPT) 72 U/L (12-78) Alkaline Phosphatase 44 U/L (45-117) Total Protein 6.0 gm/dl (6.4-8.2) Albumin 2.5 gm/dl (3.4-5.0) Globulin 3.5 gm/dl (2.5-4.0) Albumin/Globulin Ratio 0.7 (0.9-2) Allergies Coded Allergies: No Known Allergies (Unverified , 09/16/16) Medications Current Inpatient Medications Medications (Trade) Dose Ordered Sig/Sara Route Start Time Stop Time Status Last Admin Dose Admin Al Hydrox/Mg Hydrox/Simethicone (Maalox Max Susp) 15 ml Q4H PRN PO 09/16/16 02:15 10/16/16 02:14 Magnesium Hydroxide (Milk Of Magnesia Susp) 30 ml Q6H PRN PO 09/16/16 02:15 10/16/16 02:14 Ondansetron HCl (Zofran Inj) 4 mg Q6H PRN IV 09/16/16 02:15 10/16/16 02:14 09/17/16 07:48 4 MG Cholecalciferol (Vitamin D Tab) 1,000 inter.unit DAILY PO 09/16/16 09:00 10/16/16 08:59 Ferrous Sulfate (Feosol Tab) 650 mg DAILY PO 09/16/16 09:00 10/16/16 08:59 Folic Acid (Folvite Tab) 1 mg DAILY PO 09/16/16 09:00 10/16/16 08:59 Levothyroxine Sodium (Synthroid Tab) 50 mcg DAILYBB PO 09/16/16 06:00 10/16/16 05:59 09/17/16 06:21 50 MCG Miscellaneous Information 1 ea 1 ea QS N/A 09/16/16 08:00 10/16/16 07:59 Pantoprazole Sodium/Syringe (Protonix Inj/ Syringe) 10 ml @ 5 mls/min DAILY@11 IV 09/16/16 11:00 10/16/16 10:59 09/17/16 07:51 5 MLS/MIN Hyoscyamine Sulfate (Levsin Tab) 0.125 mg Q4H PRN PO 09/16/16 11:45 10/16/16 11:44 09/17/16 07:51 0.125 MG Enoxaparin Sodium (Lovenox Inj) 30 mg QAM SQ 09/16/16 13:00 10/16/16 12:59 09/17/16 07:50 30 MG Morphine Sulfate 6 mg 6 mg Q3H PRN IV 09/17/16 10:45 10/01/16 10:44 Sodium Bicarbonate/ Sodium Chloride (Sodium Bicarbonate 8.4% Inj/1/2 Nss 1000ml) 1,075 ml @ 150 mls/hr Q7H10M ONCE IV 09/17/16 09:30 09/17/16 16:39 Impression (1) VLAD (acute kidney injury) (2) Rheumatoid arthritis (3) Mesenteric adenitis (4) Nausea and vomiting Ashley is a 20-year-old female with acute kidney injury in the setting of recent gastroenteritis. She has persistent abdominal pain with imaging revealing mesenteric adenitis. Past medical history is notable for autoimmune thyroiditis and hypothyroidism as well as rheumatoid arthritis which she has been maintained on methotrexate. Renal ultrasound reveals no acute findings. There is no evidence chronic kidney disease on imaging or by prior laboratory studies. Serum creatinine was 0.8 milligrams/deciliter earlier this month. Urinalysis with microscopy was reviewed. She does have microscopic hematuria as well as proteinuria with a few white blood cells. Hyaline casts were appreciated. Imaging and urine studies do not suggest an infiltrative process. Clinical presentation not suggestive of TMA. Clinical presentation is consistent with multifactorial VLAD/ATN from prerenal azotemia, NSAID use and complicated by iodinated contrast and methotrexate. Less likely to be AIN or acute GN. I cannot exclude these etiologies at this time. I discussed in detail with the patient and her mother the progression of VLAD. We reviewed potential indications for renal replacement therapy. We discussed the possible role of renal biopsy. IVF changed to 1/2NS+75 NaHCO3. Goal to maintain positive fluid balance. Will repeat metabolic profile this afternoon. Repeat UA/microscopy tomorrow AM with serum renal panel. Recommendations -- 0.45% saline + 75 HCO3 @ 150 ml/hr -- Repeat metabolic profile this afternoon -- Hold Mtx -- Repeat urine analysis and microscopy with serum renal panel tomorrow AM -- Avoid NSAIDS -- Document I/O's -- No current need for [employer] -- If creatinine continues to acutely rise, will check serologic GN workup an plan potential renal biopsy in next 24-48 hours
--- NOTE | 2016-09-17 10:35 | Gastroenterology Progress Note ---
Progress Note Date of Service: Sep 17, 2016 Subjective Pt evaluation today including: conversation w/ patient, conversation w/ family (mother in the room for H and P), physical exam, chart review, lab review, review of studies, review of inpatient medication list CC f/u abd pain HPI Pt states lower abd pain is worse today. Also yesterday and this am with nausea and vomiting bile colored fluid. Medications Current Inpatient Medications Medications (Trade) Dose Ordered Sig/Sara Route Start Time Stop Time Status Last Admin Dose Admin Al Hydrox/Mg Hydrox/Simethicone (Maalox Max Susp) 15 ml Q4H PRN PO 09/16/16 02:15 10/16/16 02:14 Magnesium Hydroxide (Milk Of Magnesia Susp) 30 ml Q6H PRN PO 09/16/16 02:15 10/16/16 02:14 Ondansetron HCl (Zofran Inj) 4 mg Q6H PRN IV 09/16/16 02:15 10/16/16 02:14 09/17/16 07:48 4 MG Cholecalciferol (Vitamin D Tab) 1,000 inter.unit DAILY PO 09/16/16 09:00 10/16/16 08:59 Ferrous Sulfate (Feosol Tab) 650 mg DAILY PO 09/16/16 09:00 10/16/16 08:59 Folic Acid (Folvite Tab) 1 mg DAILY PO 09/16/16 09:00 10/16/16 08:59 Levothyroxine Sodium (Synthroid Tab) 50 mcg DAILYBB PO 09/16/16 06:00 10/16/16 05:59 09/17/16 06:21 50 MCG Miscellaneous Information 1 ea 1 ea QS N/A 09/16/16 08:00 10/16/16 07:59 Pantoprazole Sodium/Syringe (Protonix Inj/ Syringe) 10 ml @ 5 mls/min DAILY@11 IV 09/16/16 11:00 10/16/16 10:59 09/17/16 07:51 5 MLS/MIN Hyoscyamine Sulfate (Levsin Tab) 0.125 mg Q4H PRN PO 09/16/16 11:45 10/16/16 11:44 09/17/16 07:51 0.125 MG Enoxaparin Sodium (Lovenox Inj) 30 mg QAM SQ 09/16/16 13:00 10/16/16 12:59 09/17/16 07:50 30 MG Morphine Sulfate 6 mg 6 mg Q3H PRN IV 09/17/16 10:45 10/01/16 10:44 Sodium Bicarbonate/ Sodium Chloride (Sodium Bicarbonate 8.4% Inj// Nss 1000ml) 1,075 ml @ 150 mls/hr Q7H10M ONCE IV 09/17/16 09:30 09/17/16 16:39 Objective Vital Signs Date Time Temp Pulse Resp B/P Pulse Ox O2 Delivery O2 Flow Rate FiO2 09/17/16 08:04 37.2 68 16 133/88 95 Room Air 09/17/16 07:30 Room Air 09/17/16 00:20 Room Air 09/16/16 22:50 37.2 73 15 126/87 95 Room Air 09/16/16 15:20 Room Air 09/16/16 15:06 36.6 50 14 130/89 98 Room Air Physical Exam General Appearance: WD/WN, no apparent distress Respiratory/Chest: normal breath sounds, no respiratory distress Cardiovascular: regular rate, rhythm Abdomen: + pertinent finding (decreased bowel sounds, no guarding nor rebound but subjective bilateral abd pain, soft) Laboratory Results Last 24 Hours Test 09/16/16 11:16 09/16/16 13:08 09/17/16 07:12 Urine Color YELLOW Urine Appearance CLEAR Urine pH 5.5 Urine Specific [place] 1.001 Urine Protein 1+ Urine Glucose (UA) NEG Urine Ketones NEG Urine Occult Blood TRACE Urine Nitrite NEG Urine Bilirubin NEG Urine Urobilinogen NEG Urine Leukocyte Esterase NEG Urine WBC (Auto) 1-5 /hpf Urine RBC (Auto) 5-10 /hpf Urine Hyaline Casts (Auto) 0 /lpf Urine Epithelial Cells (Auto) >30 /lpf Urine Bacteria (Auto) NEG Prothrombin Time 18.3 SECONDS Prothromb Time International Ratio 1.7 White Blood Count 9.21 K/uL Red Blood Count 3.89 M/uL Hemoglobin 11.7 g/dL Hematocrit 34.5 % Mean Corpuscular Volume 88.7 fL Mean Corpuscular Hemoglobin 30.1 pg Mean Corpuscular Hemoglobin Concent 33.9 g/dl Platelet Count 315 K/uL Mean Platelet Volume 9.3 fL Neutrophils (%) (Auto) 74.1 % Lymphocytes (%) (Auto) 15.9 % Monocytes (%) (Auto) 9.7 % Eosinophils (%) (Auto) 0.1 % Basophils (%) (Auto) 0.0 % Neutrophils # (Auto) 6.83 K/uL Lymphocytes # (Auto) 1.46 K/uL Monocytes # (Auto) 0.89 K/uL Eosinophils # (Auto) 0.01 K/uL Basophils # (Auto) 0.00 K/uL RDW Standard Deviation 43.4 fL RDW Coefficient of Variation 13.5 % Immature Granulocyte % (Auto) 0.2 % Immature Granulocyte # (Auto) 0.02 K/uL Sodium Level 144 mmol/L Potassium Level 4.4 mmol/L Chloride Level 115 mmol/L Carbon Dioxide Level 16 mmol/L Anion Gap 13.0 mmol/L Blood Urea Nitrogen 18 mg/dl Creatinine 3.60 mg/dl Est Creatinine Clear Calc Drug Dose 22.0 ml/min Estimated GFR () 20.0 Estimated GFR (Non- 17.2 BUN/Creatinine Ratio 4.9 Random Glucose 89 mg/dl Lactic Acid Level 0.7 mmol/L Calcium Level 8.3 mg/dl Total Bilirubin 0.4 mg/dl Aspartate Amino Transf (AST/SGOT) 18 U/L Alanine Aminotransferase (ALT/SGPT) 72 U/L Alkaline Phosphatase 44 U/L Total Protein 6.0 gm/dl Albumin 2.5 gm/dl Globulin 3.5 gm/dl Albumin/Globulin Ratio 0.7 Assessment and Plan Lower abd pain--worse today, not clear if underlying process worse of if side effect to morphine nausea and vomiting--likely from process causing abd pain. elevated LFTs--improved--monospot negative Abnormal SB on CT---proximal SB thickening LUQ small reactive lymph nodes on CT decreased CO2--worse but lactic acid level normal so doubt ischemic bowel. renal failure per nephrology worse CT enterography or MR enterography would like to do for worsening pain and SB thickening but per radiologist both require oral contrast which she likely would not tolerate and also can affect renal function. Will do A/P CT with no oral or IV contrast today to see if shows new infomartion. Consider holding or switching to different narcotic in case morphine causing worsening of symptoms. Check TSH and cortisol in am to look for metabolic reasons for GI symptoms also.
[2016-09-17] MEDS ORDERED: MoRPHine SULFATE 4 MG/ML 1 ML CARP\\VIAL IV PRN ×2 (10:45→17:00)
[2016-09-17] MEDS ORDERED: MoRPHine SULFATE 10 MG/ML CARP/VIAL IV PRN (10:45)
--- NOTE | 2016-09-17 11:23 | DIAGNOSTIC IMAGING REPORT ---
CT SCAN OF THE ABDOMEN AND PELVIS WITHOUT CONTRAST CLINICAL HISTORY: Worsening lower abdominal pain. Small bowel thickening. COMPARISON STUDY: 09/12/2016 TECHNIQUE: CT scan of the abdomen and pelvis was performed from the lung bases to the proximal femurs. Images are reviewed in the axial, sagittal, and coronal planes. IV contrast was not administered for this examination. CT DOSE: 595.11 mGycm FINDINGS: Lower chest: There are small bilateral pleural effusions right greater than left. There are bibasal airspace opacities, likely atelectatic although an inflammatory process could appear similar. Liver: The unenhanced liver is normal in size, contour, and attenuation. There is no intrahepatic biliary ductal dilatation. Gallbladder: There is mild pericholecystic edema. No stones are visualized. Spleen: Normal in size and attenuation. Pancreas: Unremarkable. Adrenal glands: Unremarkable. Kidneys: There is a punctate nonobstructing right renal calculus. No ureteral or bladder calculi are visualized. Bowel: There are no transition zones indicate bowel obstruction. The appendix appears normal. There is no acute diverticulitis. Peritoneum: There is a small amount of free pelvic fluid. No free air is visualized. Vasculature: The abdominal aorta is normal in course and caliber. Adenopathy: None. Pelvic viscera: The bladder, and pelvic viscera are unremarkable. Skeletal structures: No destructive osseous lesions are seen. IMPRESSION: 1. Study limited secondary to no intravenous or oral contrast 2. Small bilateral pleural effusions with bibasal airspace opacities likely atelectatic 3. Mild pericholecystic edema 4. Small amount of free pelvic fluid 5. Nonobstructing right renal calculus 6. No evidence of bowel obstruction. No evidence of free air 7. Normal appendix. No evidence of acute diverticulitis. Electronically signed by: Deandre Bowles M.D. 09/17/2016 11:22 AM Dictated Date/Time: 09/17/2016 11:16 AM
[2016-09-17] MEDS ORDERED: MoRPHine SULFATE 2 MG/ML CARP IV PRN (14:30)
--- NOTE | 2016-09-17 14:51 | Family Medicine Progress Note ---
Progress Note Date of Service Sep 17, 2016. Subjective Pt evaluation today including: conversation w/ patient, physical exam, chart review, lab review The patient was seen and examined at bedside. Patient reports that her pain medication only lasts 1.5 hours, was increased yesterday evening. Patient also had green vomiting today. Hasn't eaten anything since yesterday at noon. Had one episode of vomiting yesterday. Patient has no appetitete. Pt reports that her abdominal pain has moved from the right side to the left side, the character and nature of the pain is still the same. Plan of care was described to the patient and all questions were answered. Objective Physical Exam General Appearance: WD/WN, + mild distress Respiratory/Chest: chest non-tender, lungs clear, normal breath sounds, no respiratory distress Cardiovascular: regular rate, rhythm, no edema, no gallop, no JVD, no murmur Abdomen: soft, + pertinent finding (Tender to light palpation in the RLQ and LLQ. LLQ tenderness >RLQ tenderness. BS normal. No discolorations. 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 She was seen in the ER 4 days ago and was diagnosed with mesenteric adenitis. At that time she received a CT Abdo and Pelvis with contrast, IV toradol and has been taking Iburpofen 200mg TID for her pain. On admission pt was given Morphine IV PRN and a GI and nephrology consult were ordered. Patient's creatinine elevated to 3.6 from 2.9 overnight to 09/17/16 and patient had bright green vomiting. Patient has no appetite and hasn't eaten anything since . After discussion with Dr. Elizondo (nephro) it was decided to changed IVF to 1/2NSS + 75meq bicarb @ 150mls/hr. CT Abdo and Pelvis today revealed mild pericholecystic edema, small amount of free pelvic fluid and a non obstructing right renal calculus. Pt will receive an Abdo US and HIDA scan today. See GI and Nephro notes for specific recommendations. Abdominal pain etiology unclear - Pt continues to have diffuse lower abdominal pain, moving from the RLQ to LLQ , pt is vomiting green billous substance and unable to tolerate PO. - GI recommends - unlikely crohn's or ischemia, CMV, Monospot test (neg) and if pain doesn't improve UE to SB or lower endoscopy. Ordered CT Abdo and Pelvis today without contrast. CT results include: 1. Study limited secondary to no intravenous or oral contrast 2. Small bilateral pleural effusions with bibasal airspace opacities likely atelectatic 3. Mild pericholecystic edema 4. Small amount of free pelvic fluid 5. Nonobstructing right renal calculus 6. No evidence of bowel obstruction. No evidence of free air 7. Normal appendix. No evidence of acute diverticulitis. GI - follow up on lactate, cortisol and TSH on morning labs. - c/w Protonix 40mg IV daily. - c/w Zofran PRN for nausea. - c/w Hyoscyamine. - Morphine. - Per Dr. Alston - Abdominal US and HIDA scan for patient to evaluate GI function. VLAD - suspect 2/2 to NSAIDS - Creatinine is 3.6<-- 2.9<--3.1, in light of elevated INR, possible glomerulonephritis. - MTX held for now as is nephrotoxic, she is due for her next dose on Wednesday, receives it weekly. - Renal US report - 1. The kidneys are normal in size and without hydronephrosis. 2. The kidneys demonstrate slightly increased cortical echotexture suggesting medical renal disease. Clinical correlation will be required. 3. The bladder is normal as visualized. 4. Hepatic steatosis. - Nephro (Dr. Elizondo) on board. See note. Recs include... -- Repeat AM tomorrow in the AM. -- No current need for Renal replacement therapy. -- If creatinine continues to acutely rise, will check serologic GN workup an plan potential renal biopsy in next 24-48 hours - Per Dr. Elizondo, IVF to 1/2NSS + 75meq bicarb @ 150mls/hr - BMP this afternoon and tomorrow AM. Elevated ALT and INR (1.7) - Unknown cause, patient is on OCPs, were normal in June, f/u toxicology screen. - Will repeat INR and check PTT. - f/u Hepatitis Panel. Rheumatoid arthritis - MTX held for now, NO NSAIDS. Hypothyroidism- c/w levothyroxine 50mcg. DVT Proph: Lovenox SQ daily, SCDs. Dispo: Full Code, clear liquid diet today after HIDA scan, NPO after midnight tonight for possible EGD tomorrow. Resident Involvement: Resident Care Provided Care Provided: Adult Hospital Medicine Reviewed: Pt Seen/Exam by Me History continuing to have abdominal pain - same intensity Constitutional: denies: fever Respiratory: negative: short of breath Cardiovascular: denies chest pain Gastrointestinal/Abdominal: positive: abdominal pain General Appearance: no apparent distress Respiratory: lungs clear, no respiratory distress Cardiovascular: regular rate, rhythm Gastrointestinal: normal bowel sounds, soft, tenderness (lower abdomen) Neurologic/Psychiatric: alert, oriented x 3 Assessment/Plan I have reviewed the medical record and performed a history and physical examination of this patient today. I have discussed the case with Dr. Yao. The above note reflects my findings, conclusions, and recommendations
[2016-09-17 15:06] VITALS: BP 137/86; PULSE 60; TEMP 37.3; O2SAT 96
--- NOTE | 2016-09-17 15:52 | DIAGNOSTIC IMAGING REPORT ---
BILIARY ULTRASOUND CLINICAL HISTORY: pericholecystic edema COMPARISON STUDY: CT scan dated 09/17/2016 FINDINGS: The pancreas appears normal as visualized. No focal hepatic masses are visualized. No gallstones are visualized. There is no ductal dilatation. The common buttock measures 3 mm. There is no right-sided hydronephrosis. There is an area of focal gallbladder wall thickening measuring 9 mm. IMPRESSION: 1. Area of focal gallbladder wall thickening/edema measuring 9 mm 2. No gallstones identified 3. No evidence of ductal dilatation. Electronically signed by: Deandre Bowles M.D. 09/17/2016 3:51 PM Dictated Date/Time: 09/17/2016 3:47 PM
[2016-09-17 17:39] LABS: PARTIAL THROMBOPLASTIN RATIO 1.2; PROTHROMBIN TIME (PATIENT) 10.4 SECONDS (9.0-12.0)
[2016-09-17 17:44] LABS: BUN/CREATININE RATIO 5.3 (10-20); CALCIUM 8.6 mg/dl (8.5-10.1); CREATININE 3.8 mg/dl (0.60-1.20); POTASSIUM 4.1 mmol/L (3.5-5.1)
[2016-09-17] MEDS: SODIUM BICARBONATE 8.4% INJ 75 MEQ in SODIUM CHLORIDE 0.45% 1000ML 1,000 ML IV SCH (18:07)
--- NOTE | 2016-09-17 20:45 | DIAGNOSTIC IMAGING REPORT ---
NUCLEAR HEPATOBILIARY SCAN CLINICAL HISTORY: Right upper quadrant abdominal pain. COMPARISON STUDY: Abdominal CT and ultrasound dated 09/17/2016. TECHNIQUE: Dynamic images of the liver and anterior abdomen were obtained every 5 minutes for a total of 60 minutes following the IV administration of 5.4mCi of technetium 99m Choletec. The gallbladder was not visualized at 60 minutes and IV morphine was then administrated at 70 minutes, with additional imaging performed every 5 minutes up to 100 minutes. FINDINGS: The hepatobiliary scan shows prompt and homogeneous hepatic uptake. There is visualized activity within the intra and extrahepatic biliary tree at 10 minutes. There is normal biliary to bowel transit, with small bowel visualized by 20 minutes. The gallbladder was not visualized at 60 minutes. Following morphine administration there is gallbladder activity seen by 75 minutes. IMPRESSION: 1. Abnormal examination, as the gallbladder was not visualized at 60 minutes. 2. The gallbladder was visualized by 75 minutes following morphine administration. This could represent chronic cholecystitis or gallbladder dysfunction. Clinical correlation will be required. Electronically signed by: Avery Birch M.D. 09/17/2016 8:43 PM Dictated Date/Time: 09/17/2016 8:38 PM
[2016-09-17 23:35] VITALS: BP 129/83; PULSE 55; TEMP 37.2; O2SAT 97
[2016-09-18] MEDS: SODIUM BICARBONATE 8.4% INJ 75 MEQ in SODIUM CHLORIDE 0.45% 1000ML 1,000 ML IV SCH ×2 (00:28→07:25)
[2016-09-18] MEDS ORDERED: MoRPHine SULFATE 4 MG/ML 1 ML CARP\\VIAL IV STA (04:49)
[2016-09-18 04:58] LABS: URINE APPEARANCE CLEAR (CLEAR); URINE BILIRUBIN NEG (NEG); URINE COLOR YELLOW; URINE NITRITE NEG (NEG); URINE SPECIFIC GRAVITY 1.002 (1.000-1.030); UROBILINOGEN NEG (NEG)
[2016-09-18] MEDS: LEVOTHYROXINE 50 MCG TAB PO SCH (04:58)
[2016-09-18] MEDS ORDERED: NURSING VERBAL MED ORDER ONE ×2 (05:00→19:15)
[2016-09-18 05:06] LABS: MANUAL MICROSCOPIC REQUIRED? NO; REVIEW REQ? NO
[2016-09-18 06:37] LABS: BASO % 0.1 %; BASO ABS # 0.01 K/uL (0-0.2); COMPLETE YES; HEMATOCRIT 32.8 % (37-47); LYMPH % 21.6 %; LYMPH ABS # 1.78 K/uL (1.2-3.4); MEAN CELL VOLUME 88.2 fL (80-100); MEAN CORPUSCULAR HEMOGLOBIN 29.8 pg (25-34); MEAN CORPUSCULAR HGB CONC 33.8 g/dl (32-36); MONO % 10.6 %; NEUT % 66.7 %; PLATELET COUNT 278 K/uL (130-400); RED BLOOD COUNT 3.72 M/uL (4.2-5.4); WHITE BLOOD COUNT 8.24 K/uL (4.8-10.8)
[2016-09-18 07:03] LABS: BUN/CREATININE RATIO 4.9 (10-20); CALCIUM 8.2 mg/dl (8.5-10.1); CREATININE 3.8 mg/dl (0.60-1.20); POTASSIUM 3.9 mmol/L (3.5-5.1)
[2016-09-18 07:13] LABS: ALB/GLOB RATIO 0.7 (0.9-2); THYROID STIMULATING HORMONE 5.35 uIu/ml (0.300-4.500)
[2016-09-18 07:22] VITALS: BP_SYST 142; BP_SYST 152; BP_DIAS 101; PULSE 61; TEMP 37.2; O2SAT 92
[2016-09-18] MEDS: ONDANSETRON INJ 2 MG/ML 2 ML VIAL IV PRN ×2 (07:25→14:17)
[2016-09-18] MEDS: FERROUS SULFATE 325 MG TAB PO SCH (07:51)
[2016-09-18] MEDS: BCP'S~ORDER AWAITING ACTION SCH ×3 (07:51→16:00)
[2016-09-18] MEDS: CHOLECALCIFEROL 1000 INTER.UNIT TAB PO SCH (07:51)
[2016-09-18] MEDS: ENOXAPARIN 30 MG/0.3 ML SYR SQ SCH (08:33)
[2016-09-18 08:35] VITALS: BP_SYST 141; BP_SYST 145; BP_DIAS 102; BP_DIAS 92; TEMP 36.7
[2016-09-18] MEDS ORDERED: AMLODIPINE BESYLATE 5 MG TAB PO ONE ×2 (09:00→09:15)
[2016-09-18] MEDS: MoRPHine SULFATE 4 MG/ML 1 ML CARP\\VIAL IV PRN ×2 (09:01→13:11)
--- NOTE | 2016-09-18 09:11 | Family Medicine Progress Note ---
Progress Note Date of Service Sep 18, 2016. Subjective Pt evaluation today including: conversation w/ patient, physical exam, chart review, lab review The patient was seen and examined at bedside. Patient is complaining of a headache that started this morning. The headache is located at the front of the head. She has had headaches like this before. Pt reports continued abdominal pain, with the addition of bloating. She rates her abdominal pain as 7/10. Vaginal spotting- Pt noticed spotting starting yesterday evening, has received a pad, she doesn't know if it's a full period or just spotting. She stopped taking her OCPs (Orsythia) since admission. She was taking OCPs for ovarian cysts she had in the past. OBGYN Rreview of Systems: Taking Orsythia (estrogen 20mcg 100mcg progresterone OCP) for 2 years for painful ovarian cysts. Was hospitalized for ovarian cysts at age 16. Menarche at age 12. On OCPs she has had no menometrorrhagia. She's never been . Never been diagnosed with an STD. Last sexual intercourse was with her bf two years ago, no same sex sexual activity. Aunt has severe endometriosis. On ROS: pt stated she felt hot, Vital signs were repeated, no signs of fever. Constitutional: + fever, No chills, No sweats Respiratory: No cough, No shortness of breath, No sputum, No wheezing Female : No dysuria, No hematuria Objective Physical Exam General Appearance: WD/WN, no apparent distress Eyes: normal inspection, PERRL, EOMI ENT: normal ENT inspection, + pertinent finding (no sinus tenderness) Neck: supple, no adenopathy Respiratory/Chest: chest non-tender, lungs clear, normal breath sounds, no respiratory distress, no accessory muscle use Cardiovascular: regular rate, rhythm, no edema, no gallop, no JVD, no murmur Abdomen: + pertinent finding (tenderness to light palpation. Soft, no gaurding , slight rebound tenderness. ) Extremities: normal range of motion, non-tender, normal inspection, no pedal edema, no calf tenderness Neurologic/Psychiatric: alert, normal mood/affect, oriented x 3 Skin: normal color, warm/dry, no rash Assessment and Plan 20F with PMH of Yi's Thyroiditis and RA on Methotrexate presented into the ER with continued abdominal pain and was admitted for VLAD (creatinine 3.1) and continued abdominal pain. She was seen in the ER 4 days ago and was diagnosed with mesenteric adenitis. At that time she received a CT Abdo and Pelvis with contrast, IV toradol and has been taking Ibuprofen 200mg TID for her pain. On this admission pt was given Morphine IV PRN and a GI and nephrology consult were ordered. Patient's creatinine remained elevated during hospital course. Repeat CT Abdo and Pelvis revealed mild pericholecystic edema , small amount of free pelvic fluid and a non obstructing right renal calculus. Abdo US on 09/18/16 showed an area of 9mm thickening in the gallbladder and HIDA scan was grossly normal with delayed visualization of the gallbladder. Per discussion with Dr. Elizondo he believes the kidney injury is multifactorial ( methotrexate, contrast, NSAIDs, dehydration). Diet progressed to Full liquids and IVF was DCed on 09/18/16. Pt reported vaginal spotting on 09/18/16 AM. Abdominal pain etiology unclear, Mesenteric Adenitis vs IBS - Pt continues to have diffuse lower abdominal pain. Pt will be progressed from NPO to clear liquids. Abdominal US and HIDA scan for patient to evaluate GI function were grossly normal. Await GI recommendations. - GI (Dr. Alston) - IgA and TTGT antibodies, will want to do an MRA but must wait for creatinine to normalize. - c/w Protonix 40mg IV daily. - c/w Zofran PRN for nausea. - c/w Hyoscyamine. - c/w Morphine 3mg Q4 PRN. VLAD likely Multifactorial ATN (methotrexate, NSAIDs and IV contrast) - Pt progressed to clear fluids. Patient is drinking well, reports multiple trips to the washroom the previous day. - Creatinine is 3.8<--3.6<-- 2.9<--3.1. - MTX held for now as is nephrotoxic, she is due for her next dose on Wednesday, receives it weekly. - Nephro (Dr. Elizondo) on board - continue to observer creatinine and follow up on ANCA, FRANCESCA and IGG labs. - Continue with clear liquid diet, progress as tolerated. HTN - BP was in the 140s/90s, may be refractive to pain or fluid overload. - IVF will be DC'd, patient will be put on clear liquid diet. - Given 5mg Amlodipine today PRN daily if BP >140. Vaginal Spotting - Likely withdrawal spotting from OCPs, continue to monitor. - Consider restarting OCPs. - If Abdominal pain persist consider OBGYN consult. Headache - After consultation with Dr. Alston, 650mg Tylenol Q6 PRN for headache. Elevated ALT and INR (Resolved) - Unknown cause, patient was on OCPs, LFTs were normal in June, f/u toxicology screen. - INR (1.0<--1.7), has normalized as have LFTs. Hepatitis Panel is negative. Rheumatoid arthritis - MTX held for now, NO NSAIDS. Hypothyroidism- TSH was approximately 5, which is elevated but may represent euthyroid syndrome. Recommend outpatient measurement and follow up. c/w levothyroxine 50mcg. DVT Proph: Lovenox SQ daily, SCDs. Dispo: Full Code, clear liquid diet, progress at tolerated. Resident Involvement: Resident Care Provided Care Provided: Adult Hospital Medicine Reviewed: Pt Seen/Exam by Me History continues to have abdominal pain Constitutional: denies: fever Respiratory: negative: short of breath Cardiovascular: denies chest pain General Appearance: no apparent distress Respiratory: lungs clear, no respiratory distress Cardiovascular: regular rate, rhythm Gastrointestinal: soft, tenderness (lower abdominal) Neurologic/Psychiatric: alert, oriented x 3 Assessment/Plan I have reviewed the medical record and performed a history and physical examination of this patient today. I have discussed the case with Dr. Yao. The above note reflects my findings, conclusions, and recommendations
--- NOTE | 2016-09-18 09:11 | Nephrology Progress Note ---
Nephrology Progress Note Date of Service Sep 18, 2016. Chief Complaint Acute renal insufficiency Subjective Vaginal bleeding started overnight. Ashley reports spotting that is now more consistent with her menstrual period. Last day of previous menstrual period was 1 week ago. Usual cycle is 4 weeks. Abdominal pain persists. She is experiencing more upper quadrant symptoms at this time. She reports pain in her lower ribs which is worse when she takes a deep breath. She has mild nausea. She does not feel that she will tolerate oral intake. No vomiting or diarrhea. No fevers or chills. No synovitis. No new joint pains. Voiding urine without difficulty. Review of Systems A complete review of systems was performed. Pertinent positives are noted above. All other systems are negative. Vital Signs Last 8 Hrs Date Time Temp Pulse Resp B/P Pulse Ox O2 Delivery O2 Flow Rate FiO2 09/18/16 08:35 36.7 145/102 141/92 09/18/16 07:30 Room Air 09/18/16 07:22 37.2 61 18 152/101 92 Room Air 142/101 I & O 24-Hour Column 09/18/16 08:00 Intake Total 3273 ml Output Total 4550 ml Balance -1277 ml Last Recorded Weight Weight (Kilograms): 71.800 Physical Exam General Appearance: no apparent distress, + obese Head: normocephalic, atraumatic Eyes: normal inspection, sclerae normal ENT: normal ENT inspection, pharynx normal Neck: supple, no JVD Respiratory/Chest: lungs clear, no respiratory distress, no accessory muscle use Cardiovascular: regular rate, rhythm Abdomen/GI: normal bowel sounds, soft, + tenderness, + pertinent finding (no guarding or rebound) Extremities/Musculoskelatal: normal inspection, no pedal edema Neurologic/Psych: alert, oriented x 3 Family History Appendicitis Social History Smokeless Tobacco Use: No Alcohol Use: occasionally Drug Use: none Marital Status: single Occupation: [employer] student Laboratory Results Past 24 Hours 09/18/16 06:20 Red Blood Count 3.72, Mean Corpuscular Volume 88.2, Mean Corpuscular Hemoglobin 29.8, Mean Corpuscular Hemoglobin Concent 33.8, Mean Platelet Volume 9.0, Neutrophils (%) (Auto) 66.7, Lymphocytes (%) (Auto) 21.6, Monocytes (%) (Auto) 10.6, Eosinophils (%) (Auto) 1.0, Basophils (%) (Auto) 0.1, Neutrophils # (Auto ) 5.50, Lymphocytes # (Auto) 1.78, Monocytes # (Auto) 0.87, Eosinophils # (Auto ) 0.08, Basophils # (Auto) 0.01 09/17/16 17:12 09/18/16 06:20 Test 09/17/16 17:12 09/18/16 04:40 09/18/16 06:20 Erythrocyte Sedimentation Rate 21 mm/hr (0-21) Prothrombin Time 10.4 SECONDS (9.0-12.0) Prothromb Time International Ratio 1.0 (0.9-1.1) Activated Partial Thromboplast Time 30.1 SECONDS (21.0-31.0) Partial Thromboplastin Ratio 1.2 Anion Gap 11.0 mmol/L (3-11) 10.0 mmol/L (3-11) Est Creatinine Clear Calc Drug Dose 20.9 ml/min 20.9 ml/min Estimated GFR () 18.7 18.7 Estimated GFR (Non- 16.1 16.1 BUN/Creatinine Ratio 5.3 (10-20) 4.9 (10-20) Calcium Level 8.6 mg/dl (8.5-10.1) 8.2 mg/dl (8.5-10.1) Hepatitis B Surface Antigen NEG (NEG) Hepatitis C Antibody NEG (NEG) Urine Color YELLOW Urine Appearance CLEAR (CLEAR) Urine pH 6.0 (4.5-7.5) Urine Specific [place] 1.002 (1.000-1.030) Urine Protein NEG (NEG) Urine Glucose (UA) NEG (NEG) Urine Ketones NEG (NEG) Urine Occult Blood 2+ (NEG) Urine Nitrite NEG (NEG) Urine Bilirubin NEG (NEG) Urine Urobilinogen NEG (NEG) Urine Leukocyte Esterase NEG (NEG) Urine WBC (Auto) 1-5 /hpf (0-5) Urine RBC (Auto) 0-4 /hpf (0-4) Urine Hyaline Casts (Auto) 1-5 /lpf (0-5) Urine Epithelial Cells (Auto) 10-20 /lpf (0-5) Urine Bacteria (Auto) NEG (NEG) White Blood Count 8.24 K/uL (4.8-10.8) Red Blood Count 3.72 M/uL (4.2-5.4) Hemoglobin 11.1 g/dL (12.0-16.0) Hematocrit 32.8 % (37-47) Mean Corpuscular Volume 88.2 fL (80-100) Mean Corpuscular Hemoglobin 29.8 pg (25-34) Mean Corpuscular Hemoglobin Concent 33.8 g/dl (32-36) Platelet Count 278 K/uL (130-400) Mean Platelet Volume 9.0 fL (7.4-10.4) Neutrophils (%) (Auto) 66.7 % Lymphocytes (%) (Auto) 21.6 % Monocytes (%) (Auto) 10.6 % Eosinophils (%) (Auto) 1.0 % Basophils (%) (Auto) 0.1 % Neutrophils # (Auto) 5.50 K/uL (1.4-6.5) Lymphocytes # (Auto) 1.78 K/uL (1.2-3.4) Monocytes # (Auto) 0.87 K/uL (0.11-0.59) Eosinophils # (Auto) 0.08 K/uL (0-0.5) Basophils # (Auto) 0.01 K/uL (0-0.2) RDW Standard Deviation 42.6 fL (36.4-46.3) RDW Coefficient of Variation 13.2 % (11.5-14.5) Immature Granulocyte % (Auto) 0.0 % Immature Granulocyte # (Auto) 0.00 K/uL (0.00-0.02) Lactic Acid Level 0.8 mmol/L (0.4-2.0) Total Bilirubin 0.3 mg/dl (0.2-1) Aspartate Amino Transf (AST/SGOT) 15 U/L (15-37) Alanine Aminotransferase (ALT/SGPT) 55 U/L (12-78) Alkaline Phosphatase 45 U/L (45-117) Total Protein 6.1 gm/dl (6.4-8.2) Albumin 2.5 gm/dl (3.4-5.0) Globulin 3.6 gm/dl (2.5-4.0) Albumin/Globulin Ratio 0.7 (0.9-2) Thyroid Stimulating Hormone (TSH) 5.350 uIu/ml (0.300-4.500) Allergies Coded Allergies: No Known Allergies (Unverified , 09/16/16) Medications Current Inpatient Medications Medications (Trade) Dose Ordered Sig/Sara Route Start Time Stop Time Status Last Admin Dose Admin Al Hydrox/Mg Hydrox/Simethicone (Maalox Max Susp) 15 ml Q4H PRN PO 09/16/16 02:15 10/16/16 02:14 Magnesium Hydroxide (Milk Of Magnesia Susp) 30 ml Q6H PRN PO 09/16/16 02:15 10/16/16 02:14 Ondansetron HCl (Zofran Inj) 4 mg Q6H PRN IV 09/16/16 02:15 10/16/16 02:14 09/18/16 07:25 4 MG Cholecalciferol (Vitamin D Tab) 1,000 inter.unit DAILY PO 09/16/16 09:00 10/16/16 08:59 Ferrous Sulfate (Feosol Tab) 650 mg DAILY PO 09/16/16 09:00 10/16/16 08:59 Folic Acid (Folvite Tab) 1 mg DAILY PO 09/16/16 09:00 10/16/16 08:59 Levothyroxine Sodium (Synthroid Tab) 50 mcg DAILYBB PO 09/16/16 06:00 10/16/16 05:59 09/18/16 04:58 50 MCG Miscellaneous Information 1 ea 1 ea QS N/A 09/16/16 08:00 10/16/16 07:59 Pantoprazole Sodium/Syringe (Protonix Inj/ Syringe) 10 ml @ 5 mls/min DAILY@11 IV 09/16/16 11:00 10/16/16 10:59 09/17/16 07:51 5 MLS/MIN Hyoscyamine Sulfate (Levsin Tab) 0.125 mg Q4H PRN PO 09/16/16 11:45 10/16/16 11:44 09/17/16 22:30 0.125 MG Enoxaparin Sodium 30 mg 30 mg QAM SQ 09/16/16 13:00 10/16/16 12:59 09/18/16 08:33 30 MG Sodium Bicarbonate/ Sodium Chloride (Sodium Bicarbonate 8.4% Inj/1/2 Nss 1000ml) 1,075 ml @ 150 mls/hr Q7H10M IV 09/17/16 17:00 10/17/16 16:59 09/18/16 07:25 150 MLS/HR Morphine Sulfate (MoRPHine SULFATE INJ) 3 mg Q4H PRN IV 09/18/16 09:00 10/02/16 08:59 Impression (1) VLAD (acute kidney injury) (2) Rheumatoid arthritis (3) Mesenteric adenitis (4) Nausea and vomiting Ashley is a 20-year-old female with acute kidney injury in the setting of recent gastroenteritis. Imaging revealing mesenteric adenitis. Past medical history is notable for autoimmune thyroiditis and hypothyroidism as well as rheumatoid arthritis for which she has been maintained on methotrexate. Renal ultrasound showed no acute findings. There is no evidence chronic kidney disease on imaging or by prior laboratory studies. Serum creatinine was 0.8 milligrams/deciliter earlier this month. Urinalysis with microscopy initially showed microscopic hematuria (few RBC's/hpf) and hyaline casts. Repeat UA/ micro bland and acellular. Clinical presentation is consistent with multifactorial VLAD/ATN from prerenal azotemia, NSAID use and complicated by iodinated contrast and methotrexate. Less likely to be AIN. Presentation not consistent with GN given negative UA this morning, stable renal function over past 12 hours and normal ESR. No indication for renal biopsy at this time. Plateau in creatinine hopefully a sign of renal recovery process. No indication for CERTIFIED APPLIANCE SERVICE TECHNICIAN. Blood pressure slightly elevated this morning but unclear if this is sympathetic due to pain and certainly may be a manifestation of IVF. IVF changed to 100 ml/hr. Goal to maintain even to slightly positive fluid balance. If BP remains elevated with pain control and reducing IVF, suggest starting amlodipine 5 mg. Repeat renal panel tomorrow AM. Recommendations -- 0.45% saline + 75 HCO3 @ 100 ml/hr -- Repeat metabolic profile tomorrow AM -- Hold methotrexate -- If BP remains elevated after reducing IVF and controlling pain, consider adding amlodipine 5 mg -- Avoid NSAIDS -- Document I/O's -- No indication for CERTIFIED APPLIANCE SERVICE TECHNICIAN or kidney biopsy at this time -- IgG4, FRANCESCA, ANCA pending but not suspected to be clinically significant to VLAD at this time
--- NOTE | 2016-09-18 10:16 | Gastroenterology Progress Note ---
Progress Note Date of Service: Sep 18, 2016 Subjective Pt evaluation today including: conversation w/ patient, physical exam, chart review, lab review, review of studies, review of inpatient medication list cc f/u abd pain HPI Pt states still nauseated and lower abd pain about the same. Maybe some periumbilical pain. NO stools but was not constipated at home. Review of Systems Respiratory: No shortness of breath Cardiac: No chest pain Medications Current Inpatient Medications Medications (Trade) Dose Ordered Sig/Sara Route Start Time Stop Time Status Last Admin Dose Admin Al Hydrox/Mg Hydrox/Simethicone (Maalox Max Susp) 15 ml Q4H PRN PO 09/16/16 02:15 10/16/16 02:14 Magnesium Hydroxide (Milk Of Magnesia Susp) 30 ml Q6H PRN PO 09/16/16 02:15 10/16/16 02:14 Ondansetron HCl (Zofran Inj) 4 mg Q6H PRN IV 09/16/16 02:15 10/16/16 02:14 09/18/16 07:25 4 MG Cholecalciferol (Vitamin D Tab) 1,000 inter.unit DAILY PO 09/16/16 09:00 10/16/16 08:59 Ferrous Sulfate (Feosol Tab) 650 mg DAILY PO 09/16/16 09:00 10/16/16 08:59 Folic Acid (Folvite Tab) 1 mg DAILY PO 09/16/16 09:00 10/16/16 08:59 Levothyroxine Sodium (Synthroid Tab) 50 mcg DAILYBB PO 09/16/16 06:00 10/16/16 05:59 09/18/16 04:58 50 MCG Miscellaneous Information 1 ea 1 ea QS N/A 09/16/16 08:00 10/16/16 07:59 Pantoprazole Sodium/Syringe (Protonix Inj/ Syringe) 10 ml @ 5 mls/min DAILY@11 IV 09/16/16 11:00 10/16/16 10:59 09/17/16 07:51 5 MLS/MIN Hyoscyamine Sulfate (Levsin Tab) 0.125 mg Q4H PRN PO 09/16/16 11:45 10/16/16 11:44 09/17/16 22:30 0.125 MG Enoxaparin Sodium (Lovenox Inj) 30 mg QAM SQ 09/16/16 13:00 10/16/16 12:59 09/18/16 08:33 30 MG Morphine Sulfate (MoRPHine SULFATE INJ) 3 mg Q4H PRN IV 09/18/16 09:00 10/02/16 08:59 09/18/16 09:01 3 MG Amlodipine Besylate (Norvasc Tab) 5 mg QAM PO 09/19/16 09:00 10/19/16 08:59 Objective Vital Signs Date Time Temp Pulse Resp B/P Pulse Ox O2 Delivery O2 Flow Rate FiO2 09/18/16 08:35 36.7 145/102 141/92 09/18/16 07:30 Room Air 09/18/16 07:22 37.2 61 18 152/101 92 Room Air 142/101 09/18/16 00:15 Room Air 09/17/16 23:35 37.2 55 16 129/83 97 Room Air 09/17/16 16:15 Room Air 09/17/16 15:06 37.3 60 16 137/86 96 Room Air Physical Exam General Appearance: WD/WN, no apparent distress Respiratory/Chest: normal breath sounds, no respiratory distress Cardiovascular: no murmur Abdomen: normal bowel sounds, soft, no organomegaly, + pertinent finding (mild lower abd guarding but no rebound. ) Laboratory Results Last 24 Hours Test 09/17/16 17:12 09/18/16 04:40 09/18/16 06:20 Erythrocyte Sedimentation Rate 21 mm/hr Prothrombin Time 10.4 SECONDS Prothromb Time International Ratio 1.0 Activated Partial Thromboplast Time 30.1 SECONDS Partial Thromboplastin Ratio 1.2 Sodium Level 145 mmol/L 144 mmol/L Potassium Level 4.1 mmol/L 3.9 mmol/L Chloride Level 112 mmol/L 108 mmol/L Carbon Dioxide Level 22 mmol/L 26 mmol/L Anion Gap 11.0 mmol/L 10.0 mmol/L Blood Urea Nitrogen 20 mg/dl 19 mg/dl Creatinine 3.80 mg/dl 3.80 mg/dl Est Creatinine Clear Calc Drug Dose 20.9 ml/min 20.9 ml/min Estimated GFR () 18.7 18.7 Estimated GFR (Non- 16.1 16.1 BUN/Creatinine Ratio 5.3 4.9 Random Glucose 78 mg/dl 84 mg/dl Calcium Level 8.6 mg/dl 8.2 mg/dl Hepatitis B Surface Antigen NEG Hepatitis C Antibody NEG Urine Color YELLOW Urine Appearance CLEAR Urine pH 6.0 Urine Specific [place] 1.002 Urine Protein NEG Urine Glucose (UA) NEG Urine Ketones NEG Urine Occult Blood 2+ Urine Nitrite NEG Urine Bilirubin NEG Urine Urobilinogen NEG Urine Leukocyte Esterase NEG Urine WBC (Auto) 1-5 /hpf Urine RBC (Auto) 0-4 /hpf Urine Hyaline Casts (Auto) 1-5 /lpf Urine Epithelial Cells (Auto) 10-20 /lpf Urine Bacteria (Auto) NEG White Blood Count 8.24 K/uL Red Blood Count 3.72 M/uL Hemoglobin 11.1 g/dL Hematocrit 32.8 % Mean Corpuscular Volume 88.2 fL Mean Corpuscular Hemoglobin 29.8 pg Mean Corpuscular Hemoglobin Concent 33.8 g/dl Platelet Count 278 K/uL Mean Platelet Volume 9.0 fL Neutrophils (%) (Auto) 66.7 % Lymphocytes (%) (Auto) 21.6 % Monocytes (%) (Auto) 10.6 % Eosinophils (%) (Auto) 1.0 % Basophils (%) (Auto) 0.1 % Neutrophils # (Auto) 5.50 K/uL Lymphocytes # (Auto) 1.78 K/uL Monocytes # (Auto) 0.87 K/uL Eosinophils # (Auto) 0.08 K/uL Basophils # (Auto) 0.01 K/uL RDW Standard Deviation 42.6 fL RDW Coefficient of Variation 13.2 % Immature Granulocyte % (Auto) 0.0 % Immature Granulocyte # (Auto) 0.00 K/uL Lactic Acid Level 0.8 mmol/L Total Bilirubin 0.3 mg/dl Aspartate Amino Transf (AST/SGOT) 15 U/L Alanine Aminotransferase (ALT/SGPT) 55 U/L Alkaline Phosphatase 45 U/L Total Protein 6.1 gm/dl Albumin 2.5 gm/dl Globulin 3.6 gm/dl Albumin/Globulin Ratio 0.7 Thyroid Stimulating Hormone (TSH) 5.350 uIu/ml Cortisol AM Sample 20.90 mcg/dl Assessment and Plan Lower abd pain--about the same, unclear etiology , TSH only mildly elevated and cortisol normal. abnl GB on CT, GB u/s and HIDA--suggestive of some chronic cholecystitis but not convinced her symptoms are from GB nausea and vomiting--likely from process causing abd pain. elevated LFTs--improved--monospot negative, CMV IGM neg, acute hep panel neg so far. Abnormal SB on CT 09/12/16---proximal SB thickening LUQ small reactive lymph nodes on CT renal failure per nephrology Continue supportive care. Next I would recommend MRI enterography when renal function allows it to evaluate for SB pathology.
[2016-09-18] MEDS: PANTOprazole INJ 40 MG in SYRINGE 0 ML IV SCH (10:55)
[2016-09-18 11:04] VITALS: BP 138/90; TEMP 36.9
[2016-09-18 12:42] LABS: PREG INTERNAL NEGATIVE QC NEG CLEAR BACKGROUND; PREG INTERNAL POSITIVE QC POS CONTROL LINE
[2016-09-18] MEDS ORDERED: ACETAMINOPHEN 325 MG TAB PO PRN (14:15)
[2016-09-18 14:48] VITALS: BP 142/90; PULSE 81; TEMP 37.2; O2SAT 95
[2016-09-18 15:10] LABS: URCREATININE 52.2 MG/DL (>/= 20)
[2016-09-18 19:03] VITALS: BP 147/95
[2016-09-18] MEDS: HYOSCYAMINE SULFATE 0.125 MG SL TAB PO PRN (19:05)
[2016-09-18] MEDS: ACETAMINOPHEN 325 MG TAB PO PRN (20:01)
[2016-09-18 23:11] VITALS: BP 142/97; PULSE 70; TEMP 37.1; O2SAT 96
[2016-09-19] MEDS: BCP'S~ORDER AWAITING ACTION SCH ×2 (00:33→07:50)
[2016-09-19] MEDS: LEVOTHYROXINE 50 MCG TAB PO SCH (05:22)
[2016-09-19 07:33] VITALS: BP 147/91; PULSE 63; TEMP 36.9; O2SAT 93
[2016-09-19 07:49] LABS: HEMATOCRIT 35.3 % (37-47); MEAN CELL VOLUME 86.9 fL (80-100); MEAN CORPUSCULAR HGB CONC 34.6 g/dl (32-36); MEAN PLATELET VOLUME 9.1 fL (7.4-10.4); PLATELET COUNT 308 K/uL (130-400); RED BLOOD COUNT 4.06 M/uL (4.2-5.4); WHITE BLOOD COUNT 7.38 K/uL (4.8-10.8)
[2016-09-19] MEDS: HYOSCYAMINE SULFATE 0.125 MG SL TAB PO PRN ×4 (07:51→21:38)
[2016-09-19] MEDS: AMLODIPINE BESYLATE 5 MG TAB PO SCH (07:51)
[2016-09-19 08:21] LABS: BUN/CREATININE RATIO 4.5 (10-20); POTASSIUM 3.8 mmol/L (3.5-5.1)
[2016-09-19 08:23] LABS: ALB/GLOB RATIO 0.7 (0.9-2)
[2016-09-19] MEDS: FERROUS SULFATE 325 MG TAB PO SCH (08:49)
[2016-09-19] MEDS: ENOXAPARIN 30 MG/0.3 ML SYR SQ SCH (08:49)
[2016-09-19] MEDS: CHOLECALCIFEROL 1000 INTER.UNIT TAB PO SCH (08:50)
[2016-09-19] MEDS: PANTOprazole INJ 40 MG in SYRINGE 0 ML IV SCH (10:38)
--- NOTE | 2016-09-19 12:10 | Nephrology Progress Note ---
Nephrology Progress Note Date of Service Sep 19, 2016. Chief Complaint Acute renal insufficiency Subjective No acute events overnight. Abdominal pain slightly improved today. Ashley is now experiencing more upper abdominal cramping. She notes some new discomfort in her right flank associated with deep breath. Appetite improved. No bowel movement. Voiding urine without difficulty. I discussed the plan of care with the patient and her father this morning. I reviewed the case with Dr. Figueroa. Menstrual period persists. Review of Systems A complete review of systems was performed. Pertinent positives are noted above. All other systems are negative. Vital Signs Last 8 Hrs Date Time Temp Pulse Resp B/P Pulse Ox O2 Delivery O2 Flow Rate FiO2 09/19/16 07:45 Room Air 09/19/16 07:33 36.9 63 18 147/91 93 Room Air I & O 24-Hour Column 09/19/16 08:00 Intake Total 583 ml Output Total 3250 ml Balance -2667 ml Last Recorded Weight Weight (Kilograms): 71.800 Physical Exam General Appearance: WD/WN, no apparent distress Head: normocephalic, atraumatic Eyes: normal inspection, sclerae normal ENT: normal ENT inspection, pharynx normal Respiratory/Chest: lungs clear, no respiratory distress, no accessory muscle use Cardiovascular: regular rate, rhythm, no gallop, no murmur Back: normal inspection, no muscle spasm Abdomen/GI: non tender, soft Extremities/Musculoskelatal: normal inspection, no pedal edema Neurologic/Psych: alert, oriented x 3 Family History Appendicitis Social History Smokeless Tobacco Use: No Alcohol Use: occasionally Drug Use: none Marital Status: single Occupation: [employer] student Laboratory Results Past 24 Hours 09/19/16 07:27 09/19/16 07:27 Test 09/18/16 12:28 09/19/16 07:27 Urine Test NEG (NEG) Red Blood Count 4.06 M/uL (4.2-5.4) Mean Corpuscular Volume 86.9 fL (80-100) Mean Corpuscular Hemoglobin 30.0 pg (25-34) Mean Corpuscular Hemoglobin Concent 34.6 g/dl (32-36) RDW Standard Deviation 41.8 fL (36.4-46.3) RDW Coefficient of Variation 13.0 % (11.5-14.5) Mean Platelet Volume 9.1 fL (7.4-10.4) Anion Gap 8.0 mmol/L (3-11) Est Creatinine Clear Calc Drug Dose 19.8 ml/min Estimated GFR () 17.6 Estimated GFR (Non- 15.2 BUN/Creatinine Ratio 4.5 (10-20) Calcium Level 9.0 mg/dl (8.5-10.1) Total Bilirubin 0.3 mg/dl (0.2-1) Aspartate Amino Transf (AST/SGOT) 21 U/L (15-37) Alanine Aminotransferase (ALT/SGPT) 54 U/L (12-78) Alkaline Phosphatase 44 U/L (45-117) Total Protein 6.4 gm/dl (6.4-8.2) Albumin 2.7 gm/dl (3.4-5.0) Globulin 3.7 gm/dl (2.5-4.0) Albumin/Globulin Ratio 0.7 (0.9-2) Immunoglobulin A 144.0 mg/dL (70-400) Allergies Coded Allergies: No Known Allergies (Unverified , 09/16/16) Medications Current Inpatient Medications Medications (Trade) Dose Ordered Sig/Sara Route Start Time Stop Time Status Last Admin Dose Admin Al Hydrox/Mg Hydrox/Simethicone (Maalox Max Susp) 15 ml Q4H PRN PO 09/16/16 02:15 10/16/16 02:14 Magnesium Hydroxide (Milk Of Magnesia Susp) 30 ml Q6H PRN PO 09/16/16 02:15 10/16/16 02:14 Ondansetron HCl (Zofran Inj) 4 mg Q6H PRN IV 09/16/16 02:15 10/16/16 02:14 09/18/16 14:17 4 MG Cholecalciferol (Vitamin D Tab) 1,000 inter.unit DAILY PO 09/16/16 09:00 10/16/16 08:59 Ferrous Sulfate (Feosol Tab) 650 mg DAILY PO 09/16/16 09:00 10/16/16 08:59 Folic Acid (Folvite Tab) 1 mg DAILY PO 09/16/16 09:00 10/16/16 08:59 Levothyroxine Sodium (Synthroid Tab) 50 mcg DAILYBB PO 09/16/16 06:00 10/16/16 05:59 09/19/16 05:22 50 MCG Miscellaneous Information 1 ea 1 ea QS N/A 09/16/16 08:00 10/16/16 07:59 Pantoprazole Sodium/Syringe (Protonix Inj/ Syringe) 10 ml @ 5 mls/min DAILY@11 IV 09/16/16 11:00 10/16/16 10:59 09/19/16 10:38 5 MLS/MIN Hyoscyamine Sulfate (Levsin Tab) 0.125 mg Q4H PRN PO 09/16/16 11:45 10/16/16 11:44 09/19/16 07:51 0.125 MG Enoxaparin Sodium (Lovenox Inj) 30 mg QAM SQ 09/16/16 13:00 10/16/16 12:59 09/19/16 08:49 30 MG Morphine Sulfate (MoRPHine SULFATE INJ) 3 mg Q4H PRN IV 09/18/16 09:00 10/02/16 08:59 09/18/16 13:11 3 MG Amlodipine Besylate (Norvasc Tab) 5 mg QAM PO 09/19/16 09:00 10/19/16 08:59 09/19/16 07:51 5 MG Acetaminophen (Tylenol Tab) 650 mg Q4H PRN PO 09/18/16 19:30 10/18/16 19:29 09/18/16 20:01 650 MG Impression (1) VLAD (acute kidney injury) (2) Rheumatoid arthritis (3) Mesenteric adenitis (4) Nausea and vomiting Ashley is a 20-year-old female with acute kidney injury in the setting of recent gastroenteritis. Imaging revealing mesenteric adenitis. Past medical history is notable for autoimmune thyroiditis and hypothyroidism as well as rheumatoid arthritis for which she has been maintained on methotrexate. Renal ultrasound showed no acute findings. There is no evidence chronic kidney disease on imaging or by prior laboratory studies. Serum creatinine was 0.8 milligrams/deciliter earlier this month. Urinalysis with microscopy initially showed microscopic hematuria (few RBC's/hpf) and hyaline casts. Repeat UA/ micro bland and acellular. Clinical presentation is consistent with multifactorial VLAD/ATN from prerenal azotemia, NSAID use and complicated by iodinated contrast and methotrexate. Less likely to be AIN. Presentation not consistent with GN given negative UA this morning, stable renal function over past 12 hours and normal ESR. No indication for renal biopsy at this time. No indication for WATER CONSERVATION SPECIALIST. IVF stopped yesterday. Unlikely benefit to urinary alkalinization at this time. Blood pressure appropriate after stopping IVF and starting amlodipine. Recommendations -- Hold IVF -- Hold methotrexate -- Continue amlodipine 5 mg daily -- Avoid NSAIDS -- Document I/O's -- Repeat metabolic profile tomorrow AM -- IgG4, FRANCESCA, ANCA pending but not suspected to be clinically significant to VLAD at this time
--- NOTE | 2016-09-19 14:33 | Family Medicine Progress Note ---
Progress Note Date of Service Sep 19, 2016. Subjective Pt evaluation today including: conversation w/ patient, physical exam, chart review, lab review Patient was seen at the bedside. Patient complains of lower abdominal pain. Also complains of frontal headache, which started last night, improved this morning. Tolerating liquid well. No bowel movement. Denies nausea, vomiting, diarrhea, SOB, chest pain, or any other additional complaints. Constitutional: No fever Respiratory: No cough, No shortness of breath, No wheezing Cardiovascular: No chest pain, No edema Abdomen: + pain (lower abdominal pain), No diarrhea, No nausea, No vomiting Female : No dysuria Skin: No rash Medications Current Inpatient Medications Medications (Trade) Dose Ordered Sig/Sara Route Start Time Stop Time Status Last Admin Dose Admin Al Hydrox/Mg Hydrox/Simethicone (Maalox Max Susp) 15 ml Q4H PRN PO 09/16/16 02:15 10/16/16 02:14 Magnesium Hydroxide (Milk Of Magnesia Susp) 30 ml Q6H PRN PO 09/16/16 02:15 10/16/16 02:14 Ondansetron HCl (Zofran Inj) 4 mg Q6H PRN IV 09/16/16 02:15 10/16/16 02:14 09/18/16 14:17 4 MG Cholecalciferol (Vitamin D Tab) 1,000 inter.unit DAILY PO 09/16/16 09:00 10/16/16 08:59 Ferrous Sulfate (Feosol Tab) 650 mg DAILY PO 09/16/16 09:00 10/16/16 08:59 Folic Acid (Folvite Tab) 1 mg DAILY PO 09/16/16 09:00 10/16/16 08:59 Levothyroxine Sodium 50 mcg 50 mcg DAILYBB PO 09/16/16 06:00 10/16/16 05:59 09/19/16 05:22 50 MCG Pantoprazole Sodium/Syringe (Protonix Inj/ Syringe) 10 ml @ 5 mls/min DAILY@11 IV 09/16/16 11:00 10/16/16 10:59 09/19/16 10:38 5 MLS/MIN Hyoscyamine Sulfate (Levsin Tab) 0.125 mg Q4H PRN PO 09/16/16 11:45 10/16/16 11:44 09/19/16 12:48 0.125 MG Enoxaparin Sodium (Lovenox Inj) 30 mg QAM SQ 09/16/16 13:00 10/16/16 12:59 09/19/16 08:49 30 MG Morphine Sulfate (MoRPHine SULFATE INJ) 3 mg Q4H PRN IV 09/18/16 09:00 10/02/16 08:59 09/18/16 13:11 3 MG Amlodipine Besylate (Norvasc Tab) 5 mg QAM PO 09/19/16 09:00 10/19/16 08:59 09/19/16 07:51 5 MG Acetaminophen (Tylenol Tab) 650 mg Q4H PRN PO 09/18/16 19:30 10/18/16 19:29 09/18/16 20:01 650 MG Non-Formulary Medication (Non-Formulary Patient'S Own Med) 1 ea DAILY PO 09/20/16 09:00 09/20/16 09:01 UNV Objective Vital Signs Date Time Temp Pulse Resp B/P Pulse Ox O2 Delivery O2 Flow Rate FiO2 09/19/16 07:45 Room Air 09/19/16 07:33 36.9 63 18 147/91 93 Room Air 09/19/16 00:15 Room Air 09/18/16 23:11 37.1 70 18 142/97 96 Room Air 09/18/16 19:03 147/95 09/18/16 17:00 Room Air 09/18/16 14:48 37.2 81 16 142/90 95 Room Air Physical Exam General Appearance: no apparent distress Neck: supple, trachea midline Respiratory/Chest: chest non-tender, lungs clear, normal breath sounds, no respiratory distress Cardiovascular: regular rate, rhythm, no edema Abdomen: normal bowel sounds, non tender, soft Extremities: non-tender, no pedal edema Neurologic/Psychiatric: alert, normal mood/affect, oriented x 3 Skin: normal color, warm/dry, no rash Laboratory Results Results Past 24 Hours Test 09/19/16 07:27 Range/Units White Blood Count 7.38 4.8-10.8 K/uL Red Blood Count 4.06 4.2-5.4 M/uL Hemoglobin 12.2 12.0-16.0 g/dL Hematocrit 35.3 37-47 % Mean Corpuscular Volume 86.9 80-100 fL Mean Corpuscular Hemoglobin 30.0 25-34 pg Mean Corpuscular Hemoglobin Concent 34.6 32-36 g/dl RDW Standard Deviation 41.8 36.4-46.3 fL RDW Coefficient of Variation 13.0 11.5-14.5 % Platelet Count 308 130-400 K/uL Mean Platelet Volume 9.1 7.4-10.4 fL Sodium Level 142 136-145 mmol/L Potassium Level 3.8 3.5-5.1 mmol/L Chloride Level 107 98-107 mmol/L Carbon Dioxide Level 27 21-32 mmol/L Anion Gap 8.0 3-11 mmol/L Blood Urea Nitrogen 18 7-18 mg/dl Creatinine 4.00 0.60-1.20 mg/dl Est Creatinine Clear Calc Drug Dose 19.8 ml/min Estimated GFR () 17.6 Estimated GFR (Non- 15.2 BUN/Creatinine Ratio 4.5 10-20 Random Glucose 81 70-99 mg/dl Calcium Level 9.0 8.5-10.1 mg/dl Total Bilirubin 0.3 0.2-1 mg/dl Aspartate Amino Transf (AST/SGOT) 21 15-37 U/L Alanine Aminotransferase (ALT/SGPT) 54 12-78 U/L Alkaline Phosphatase 44 45-117 U/L Total Protein 6.4 6.4-8.2 gm/dl Albumin 2.7 3.4-5.0 gm/dl Globulin 3.7 2.5-4.0 gm/dl Albumin/Globulin Ratio 0.7 0.9-2 Immunoglobulin A 144.0 70-400 mg/dL Assessment and Plan This is a 20 y/o F with PMH of Yi's Thyroiditis and RA on Methotrexate presented into the ER with continued abdominal pain and was admitted for VLAD ( creatinine 3.1) and continued abdominal pain. She was seen in the ER 4 days ago and was diagnosed with mesenteric adenitis. At that time she received a CT Abdo and Pelvis with contrast, IV Toradol and has been taking Ibuprofen 200mg TID for her pain. On this admission pt was given Morphine IV PRN and a GI and nephrology consult were ordered. Patient's creatinine remained elevated during hospital course. Repeat CT Abdo and Pelvis revealed mild pericholecystic edema, small amount of free pelvic fluid and a non obstructing right renal calculus. Abdo US on 09/18/16 showed an area of 9mm thickening in the gallbladder and HIDA scan was grossly normal with delayed visualization of the gallbladder. Per discussion with Dr. Elizondo he believes the kidney injury is multifactorial ( methotrexate, contrast, NSAIDs, dehydration). IVF was D/c on 09/18/16. Pt reported vaginal spotting on 09/18/16 AM. Diet is advanced to regular diet ( mechanical soft) today (09/19/16). 1. Abdominal pain 2/2 unclear etiology - Could be 2/2 Mesenteric Adenitis vs IBS ? - Pt continues to have diffuse lower abdominal pain. Pt advanced from full liquid diet to regular diet (mechanical soft) today. Abdominal US and HIDA scan for patient to evaluate GI function were grossly normal. - GI recommendations - Dr. Wilkinson reviewed the records and thought overall GI issues might be viral and worse in setting of immunosuppression. Creatinine is worse and patients overall symptoms better so no immediate plans for MR Enterography which requires contrast which could adversely affect kidney function. - Pending IgA and TTGT antibodies. - Continue Protonix 40mg IV daily. - Continue with Zofran PRN for nausea. - Continue Hyoscyamine. - Continue Morphine 3mg Q4 PRN. - If Abdominal pain persist consider [facility] consult on Wednesday - for input on endometriosis. Less likely considering pain not cyclic with periods 2. VLAD likely Multifactorial ATN (methotrexate, NSAIDs and IV contrast) - Diet is advanced to regular diet (mechanical soft). Patient is drinking well. - Creatinine is still elevated, 4<--3.8<--3.6<-- 2.9<--3.1 - MTX held for now as is nephrotoxic, receives it weekly. - Nephro (Dr. Elizondo) on board - continue to observer creatinine and follow up on ANCA, FRANCESCA and IGG labs. - Continue to monitor 3. HTN - BP was in the 140s/90s, may be refractive to pain or fluid overload. Today BP is 144/91 - Given 5mg Amlodipine today PRN daily if BP >140. - Continue to monitor 4. Vaginal Spotting - Likely withdrawal bleeding from stopping OCPs - Restart OCP today 5. Headache - After consultation with Dr. Alston, 650mg Tylenol Q6 PRN for headache. 6. Elevated LFTs - Normal AST and ALT with mildly decreased Alk Phos 44 - Monospot, CMV IGM negative, and acute hepatitis panel are negative - Toxicology is positive for opiates 7. Rheumatoid arthritis - MTX held for now, NO NSAIDS. 8. Hypothyroidism - TSH was mildly elevated (5.3) but may represent euthyroid syndrome. - Continue levothyroxine 50mcg - Recommend outpatient follow up 9. DVT Proph: - Lovenox SQ daily, SCDs. Reviewed: Pt Seen/Exam by Me History abdominal pain still there 01/16. Constitutional: denies: fever Respiratory: negative: short of breath Cardiovascular: denies chest pain Gastrointestinal/Abdominal: positive: abdominal pain General Appearance: no apparent distress Respiratory: lungs clear, no respiratory distress Cardiovascular: normal peripheral pulses Gastrointestinal: normal bowel sounds, soft, tenderness (mild lower abdominal tenderness) Neurologic/Psychiatric: alert, oriented x 3 Skin Characteristics: warm/dry Assessment/Plan I have reviewed the medical record and performed a history and physical examination of this patient today. I have discussed the case with Dr. Marroquin. The above note reflects my findings, conclusions, and recommendations
[2016-09-19 15:09] VITALS: BP 144/91; PULSE 92; TEMP 37.3; O2SAT 98
--- NOTE | 2016-09-19 16:00 | Gastroenterology Progress Note ---
Progress Note Date of Service: Sep 19, 2016 Subjective Pt evaluation today including: conversation w/ patient, conversation w/ family (father), physical exam, chart review, lab review, review of studies, review of inpatient medication list cc f/u abd pain, n/v HPI Pts lower abd pain is better and n/v better tolerating some soft diet. Review of Systems Respiratory: No shortness of breath Cardiac: No chest pain Medications Current Inpatient Medications Medications (Trade) Dose Ordered Sig/Sara Route Start Time Stop Time Status Last Admin Dose Admin Al Hydrox/Mg Hydrox/Simethicone (Maalox Max Susp) 15 ml Q4H PRN PO 09/16/16 02:15 10/16/16 02:14 Magnesium Hydroxide (Milk Of Magnesia Susp) 30 ml Q6H PRN PO 09/16/16 02:15 10/16/16 02:14 Ondansetron HCl (Zofran Inj) 4 mg Q6H PRN IV 09/16/16 02:15 10/16/16 02:14 09/18/16 14:17 4 MG Cholecalciferol (Vitamin D Tab) 1,000 inter.unit DAILY PO 09/16/16 09:00 10/16/16 08:59 Ferrous Sulfate (Feosol Tab) 650 mg DAILY PO 09/16/16 09:00 10/16/16 08:59 Folic Acid (Folvite Tab) 1 mg DAILY PO 09/16/16 09:00 10/16/16 08:59 Levothyroxine Sodium 50 mcg 50 mcg DAILYBB PO 09/16/16 06:00 10/16/16 05:59 09/19/16 05:22 50 MCG Pantoprazole Sodium/Syringe (Protonix Inj/ Syringe) 10 ml @ 5 mls/min DAILY@11 IV 09/16/16 11:00 10/16/16 10:59 09/19/16 10:38 5 MLS/MIN Hyoscyamine Sulfate (Levsin Tab) 0.125 mg Q4H PRN PO 09/16/16 11:45 10/16/16 11:44 09/19/16 12:48 0.125 MG Enoxaparin Sodium (Lovenox Inj) 30 mg QAM SQ 09/16/16 13:00 10/16/16 12:59 09/19/16 08:49 30 MG Morphine Sulfate (MoRPHine SULFATE INJ) 3 mg Q4H PRN IV 09/18/16 09:00 10/02/16 08:59 09/18/16 13:11 3 MG Amlodipine Besylate (Norvasc Tab) 5 mg QAM PO 09/19/16 09:00 10/19/16 08:59 09/19/16 07:51 5 MG Acetaminophen (Tylenol Tab) 650 mg Q4H PRN PO 09/18/16 19:30 10/18/16 19:29 09/18/16 20:01 650 MG Non-Formulary Medication (Non-Formulary Patient'S Own Med) 1 ea DAILY@2200 PO 09/19/16 22:00 09/19/16 22:01 Objective Vital Signs Date Time Temp Pulse Resp B/P Pulse Ox O2 Delivery O2 Flow Rate FiO2 09/19/16 15:09 37.3 92 16 144/91 98 Room Air 09/19/16 07:45 Room Air 09/19/16 07:33 36.9 63 18 147/91 93 Room Air 09/19/16 00:15 Room Air 09/18/16 23:11 37.1 70 18 142/97 96 Room Air 09/18/16 19:03 147/95 09/18/16 17:00 Room Air Physical Exam General Appearance: WD/WN, no apparent distress Abdomen: normal bowel sounds, soft, no organomegaly, + pertinent finding ( subjective lower abd pain but no guarding nor rebound. ) Laboratory Results Last 24 Hours Test 09/19/16 07:27 White Blood Count 7.38 K/uL Red Blood Count 4.06 M/uL Hemoglobin 12.2 g/dL Hematocrit 35.3 % Mean Corpuscular Volume 86.9 fL Mean Corpuscular Hemoglobin 30.0 pg Mean Corpuscular Hemoglobin Concent 34.6 g/dl RDW Standard Deviation 41.8 fL RDW Coefficient of Variation 13.0 % Platelet Count 308 K/uL Mean Platelet Volume 9.1 fL Sodium Level 142 mmol/L Potassium Level 3.8 mmol/L Chloride Level 107 mmol/L Carbon Dioxide Level 27 mmol/L Anion Gap 8.0 mmol/L Blood Urea Nitrogen 18 mg/dl Creatinine 4.00 mg/dl Est Creatinine Clear Calc Drug Dose 19.8 ml/min Estimated GFR () 17.6 Estimated GFR (Non- 15.2 BUN/Creatinine Ratio 4.5 Random Glucose 81 mg/dl Calcium Level 9.0 mg/dl Total Bilirubin 0.3 mg/dl Aspartate Amino Transf (AST/SGOT) 21 U/L Alanine Aminotransferase (ALT/SGPT) 54 U/L Alkaline Phosphatase 44 U/L Total Protein 6.4 gm/dl Albumin 2.7 gm/dl Globulin 3.7 gm/dl Albumin/Globulin Ratio 0.7 Immunoglobulin A 144.0 mg/dL Assessment and Plan Lower abd pain--better-- unclear etiology , TSH only mildly elevated and cortisol normal. abnl GB on CT, GB u/s and HIDA--suggestive of some chronic cholecystitis but not convinced her symptoms are from GB nausea and vomiting--likely from process causing abd pain--improved elevated LFTs--improved--monospot negative, CMV IGM neg, acute hep panel neg. Abnormal SB on CT 09/12/16---proximal SB thickening LUQ small reactive lymph nodes on CT renal failure per nephrology Only GI testing pending is TTG for celiac sprue (total IgA is normal level so should not have false negative results). Discussed case with DR Wilkinson yesterday who reviewed her records and he thought overall GI issues might be viral and worse in setting of immunosuppression. Creatinine is worse and patients overall symptoms better so NO immediate plans for MR Enterography which requires constrast which could adversely affect kidney function.
[2016-09-19] MEDS ORDERED: FALMINA PO SCH (22:00)
[2016-09-19 23:30] VITALS: BP 135/91; PULSE 58; TEMP 37; O2SAT 98
[2016-09-20] MEDS ORDERED: HYDROCODONE/ACETAMOPHEN 5/325MG TAB PO PRN (03:30)
[2016-09-20] MEDS ORDERED: TRAMADOL HCL 50 MG TAB PO PRN (03:30)
[2016-09-20 05:36] LABS: MEAN CELL VOLUME 86.3 fL (80-100); MEAN CORPUSCULAR HGB CONC 34.7 g/dl (32-36); MEAN PLATELET VOLUME 9.1 fL (7.4-10.4); PLATELET COUNT 345 K/uL (130-400); RED BLOOD COUNT 4.17 M/uL (4.2-5.4); WHITE BLOOD COUNT 7.16 K/uL (4.8-10.8)
[2016-09-20] MEDS: LEVOTHYROXINE 50 MCG TAB PO SCH (05:54)
[2016-09-20] MEDS ORDERED: HYDROCODONE/ACETAMOPHEN 5/325MG TAB ONE (06:10)
[2016-09-20 06:12] LABS: BUN/CREATININE RATIO 5.9 (10-20); CALCIUM 8.8 mg/dl (8.5-10.1); CREATININE 3.5 mg/dl (0.60-1.20); POTASSIUM 3.6 mmol/L (3.5-5.1)
[2016-09-20 06:15] LABS: ALB/GLOB RATIO 0.8 (0.9-2)
[2016-09-20 07:32] VITALS: BP 113/73; PULSE 63; TEMP 36.9; O2SAT 94
[2016-09-20] MEDS: FERROUS SULFATE 325 MG TAB PO SCH (08:43)
[2016-09-20] MEDS: CHOLECALCIFEROL 1000 INTER.UNIT TAB PO SCH (08:43)
[2016-09-20] MEDS: ENOXAPARIN 30 MG/0.3 ML SYR SQ SCH (08:44)
[2016-09-20] MEDS: AMLODIPINE BESYLATE 5 MG TAB PO SCH (08:45)
[2016-09-20] MEDS: HYOSCYAMINE SULFATE 0.125 MG SL TAB PO PRN ×2 (08:45→18:13)
[2016-09-20] MEDS: PANTOprazole INJ 40 MG in SYRINGE 0 ML IV SCH (11:07)
--- NOTE | 2016-09-20 11:52 | Nephrology Progress Note ---
Nephrology Progress Note Date of Service Sep 20, 2016. Chief Complaint Acute renal insufficiency Subjective No acute events overnight. Appetite improved. Abdominal pain improving. Persistent pain in mid back on the right side. Out of bed and ambulating in hallway without difficulty. Denies nausea. No diarrhea. No urinary complaints , including dysuria, frequency or hematuria. She denies significant joint pain , synovitis or effusions. Review of Systems A complete review of systems was performed. Pertinent positives are noted above. All other systems are negative. Vital Signs Last 8 Hrs Date Time Temp Pulse Resp B/P Pulse Ox O2 Delivery O2 Flow Rate FiO2 09/20/16 07:45 Room Air 09/20/16 07:32 36.9 63 16 113/73 94 Room Air I & O 24-Hour Column 09/20/16 08:00 Intake Total 2840 ml Output Total 3450 ml Balance -610 ml Last Recorded Weight Weight (Kilograms): 71.800 Physical Exam General Appearance: no apparent distress, + obese Head: normocephalic, atraumatic Eyes: normal inspection, sclerae normal ENT: normal ENT inspection, pharynx normal Neck: supple, no JVD Respiratory/Chest: lungs clear, no respiratory distress, no accessory muscle use Cardiovascular: regular rate, rhythm, no gallop Back: normal inspection (mild CVA tenderness and tenderness in paraspinal muscularture in the mid to lower thoracic area on the right), + pertinent finding Abdomen/GI: non tender, soft Extremities/Musculoskelatal: normal inspection, no pedal edema Neurologic/Psych: alert, oriented x 3 Family History Appendicitis Social History Smokeless Tobacco Use: No Alcohol Use: occasionally Drug Use: none Marital Status: single Occupation: [employer] student Laboratory Results Past 24 Hours 09/20/16 05:12 09/20/16 05:12 Test 09/20/16 05:12 Red Blood Count 4.17 M/uL (4.2-5.4) Mean Corpuscular Volume 86.3 fL (80-100) Mean Corpuscular Hemoglobin 30.0 pg (25-34) Mean Corpuscular Hemoglobin Concent 34.7 g/dl (32-36) RDW Standard Deviation 40.3 fL (36.4-46.3) RDW Coefficient of Variation 12.8 % (11.5-14.5) Mean Platelet Volume 9.1 fL (7.4-10.4) Anion Gap 10.0 mmol/L (3-11) Est Creatinine Clear Calc Drug Dose 22.7 ml/min Estimated GFR () 20.7 Estimated GFR (Non- 17.8 BUN/Creatinine Ratio 5.9 (10-20) Calcium Level 8.8 mg/dl (8.5-10.1) Total Bilirubin 0.4 mg/dl (0.2-1) Aspartate Amino Transf (AST/SGOT) 18 U/L (15-37) Alanine Aminotransferase (ALT/SGPT) 50 U/L (12-78) Alkaline Phosphatase 44 U/L (45-117) Total Protein 6.7 gm/dl (6.4-8.2) Albumin 3.0 gm/dl (3.4-5.0) Globulin 3.7 gm/dl (2.5-4.0) Albumin/Globulin Ratio 0.8 (0.9-2) Allergies Coded Allergies: No Known Allergies (Unverified , 09/16/16) Medications Current Inpatient Medications Medications (Trade) Dose Ordered Sig/Sara Route Start Time Stop Time Status Last Admin Dose Admin Al Hydrox/Mg Hydrox/Simethicone (Maalox Max Susp) 15 ml Q4H PRN PO 09/16/16 02:15 10/16/16 02:14 Magnesium Hydroxide (Milk Of Magnesia Susp) 30 ml Q6H PRN PO 09/16/16 02:15 10/16/16 02:14 Ondansetron HCl (Zofran Inj) 4 mg Q6H PRN IV 09/16/16 02:15 10/16/16 02:14 09/18/16 14:17 4 MG Cholecalciferol (Vitamin D Tab) 1,000 inter.unit DAILY PO 09/16/16 09:00 10/16/16 08:59 Ferrous Sulfate (Feosol Tab) 650 mg DAILY PO 09/16/16 09:00 10/16/16 08:59 Folic Acid (Folvite Tab) 1 mg DAILY PO 09/16/16 09:00 10/16/16 08:59 Levothyroxine Sodium 50 mcg 50 mcg DAILYBB PO 09/16/16 06:00 10/16/16 05:59 09/20/16 05:54 50 MCG Pantoprazole Sodium/Syringe (Protonix Inj/ Syringe) 10 ml @ 5 mls/min DAILY@11 IV 09/16/16 11:00 10/16/16 10:59 09/20/16 11:07 5 MLS/MIN Hyoscyamine Sulfate (Levsin Tab) 0.125 mg Q4H PRN PO 09/16/16 11:45 10/16/16 11:44 09/20/16 08:45 0.125 MG Enoxaparin Sodium (Lovenox Inj) 30 mg QAM SQ 09/16/16 13:00 10/16/16 12:59 09/20/16 08:44 30 MG Morphine Sulfate (MoRPHine SULFATE INJ) 3 mg Q4H PRN IV 09/18/16 09:00 10/02/16 08:59 09/18/16 13:11 3 MG Amlodipine Besylate (Norvasc Tab) 5 mg QAM PO 09/19/16 09:00 10/19/16 08:59 09/20/16 08:45 5 MG Acetaminophen (Tylenol Tab) 650 mg Q4H PRN PO 09/18/16 19:30 10/18/16 19:29 09/18/16 20:01 650 MG Acetaminophen/ Hydrocodone Bitart ([place] 5/325 Tab) 1 tab Q6H PRN PO 09/20/16 03:30 10/04/16 03:29 Acetaminophen/ Hydrocodone Bitart ([place] 5/325 Tab) 2 tab Q6H PRN PO 09/20/16 03:30 10/04/16 03:29 Tramadol HCl (Ultram Tab) 50 mg Q4H PRN PO 09/20/16 03:30 10/20/16 03:29 Tramadol HCl (Ultram Tab) 100 mg Q4H PRN PO 09/20/16 03:30 10/20/16 03:29 Impression (1) VLAD (acute kidney injury) (2) Rheumatoid arthritis (3) Mesenteric adenitis (4) Nausea and vomiting Ashley is a 20-year-old female with acute kidney injury in the setting of recent gastroenteritis. Imaging revealing mesenteric adenitis. Past medical history is notable for autoimmune thyroiditis and hypothyroidism as well as rheumatoid arthritis for which she has been maintained on methotrexate. Renal ultrasound showed no acute findings. There is no evidence chronic kidney disease on imaging or by prior laboratory studies. Serum creatinine was 0.8 milligrams/deciliter earlier this month. Urinalysis with microscopy initially showed microscopic hematuria (few RBC's/hpf) and hyaline casts. Repeat UA/ micro bland and acellular. Clinical presentation is consistent with multifactorial VLAD/ATN from prerenal azotemia, NSAID use and complicated by iodinated contrast and methotrexate. Less likely to be AIN. Presentation not consistent with GN given normal UA, stable renal function and normal ESR. Creatinine starting to show evidence of renal recovery. Blood pressure appropriate after stopping IVF and starting amlodipine. Recommendations -- Continue amlodipine 5 mg daily for now but note that BP may improved now that IVF stopped -- No additional methotrexate until kidney function recovers -- Avoid NSAIDS -- Repeat metabolic profile tomorrow AM -- IgG4, FRANCESCA, ANCA pending but not suspected to be clinically significant -- I discussed with Ashley that addition imaging or urinary studies are unlikely to show any changes at this time but we will continue to monitor her pain
[2016-09-20] MEDS: ONDANSETRON INJ 2 MG/ML 2 ML VIAL IV PRN ×2 (14:11→18:13)
--- NOTE | 2016-09-20 14:13 | Family Medicine Progress Note ---
Progress Note Date of Service Sep 20, 2016. Subjective Pt evaluation today including: conversation w/ patient, physical exam, chart review, lab review Voiding: no voiding problems Patient was seen at the bedside. Patient states that she still has lower abdominal pain but it has improved from yesterday. Tolerating food and drink well. Denies nausea, vomiting, headache, SOB, dysuria, or any other additional problems. Constitutional: No fever Respiratory: No cough, No shortness of breath, No wheezing Abdomen: + pain (improved since yesterday), No constipation, No diarrhea, No nausea, No vomiting Musculoskeletal: No muscle pain Female : No dysuria Skin: No rash Medications Current Inpatient Medications Medications (Trade) Dose Ordered Sig/Sara Route Start Time Stop Time Status Last Admin Dose Admin Al Hydrox/Mg Hydrox/Simethicone (Maalox Max Susp) 15 ml Q4H PRN PO 09/16/16 02:15 10/16/16 02:14 Magnesium Hydroxide (Milk Of Magnesia Susp) 30 ml Q6H PRN PO 09/16/16 02:15 10/16/16 02:14 Ondansetron HCl (Zofran Inj) 4 mg Q6H PRN IV 09/16/16 02:15 10/16/16 02:14 09/18/16 14:17 4 MG Cholecalciferol (Vitamin D Tab) 1,000 inter.unit DAILY PO 09/16/16 09:00 10/16/16 08:59 Ferrous Sulfate (Feosol Tab) 650 mg DAILY PO 09/16/16 09:00 10/16/16 08:59 Folic Acid (Folvite Tab) 1 mg DAILY PO 09/16/16 09:00 10/16/16 08:59 Levothyroxine Sodium (Synthroid Tab) 50 mcg DAILYBB PO 09/16/16 06:00 10/16/16 05:59 09/20/16 05:54 50 MCG Hyoscyamine Sulfate (Levsin Tab) 0.125 mg Q4H PRN PO 09/16/16 11:45 10/16/16 11:44 09/20/16 08:45 0.125 MG Enoxaparin Sodium (Lovenox Inj) 30 mg QAM SQ 09/16/16 13:00 10/16/16 12:59 09/20/16 08:44 30 MG Morphine Sulfate (MoRPHine SULFATE INJ) 3 mg Q4H PRN IV 09/18/16 09:00 10/02/16 08:59 09/18/16 13:11 3 MG Amlodipine Besylate (Norvasc Tab) 5 mg QAM PO 09/19/16 09:00 10/19/16 08:59 09/20/16 08:45 5 MG Acetaminophen (Tylenol Tab) 650 mg Q4H PRN PO 09/18/16 19:30 10/18/16 19:29 09/18/16 20:01 650 MG Acetaminophen/ Hydrocodone Bitart ([place] 5/325 Tab) 1 tab Q6H PRN PO 09/20/16 03:30 10/04/16 03:29 Acetaminophen/ Hydrocodone Bitart (Salix 5/325 Tab) 2 tab Q6H PRN PO 09/20/16 03:30 10/04/16 03:29 Tramadol HCl (Ultram Tab) 50 mg Q4H PRN PO 09/20/16 03:30 10/20/16 03:29 Tramadol HCl (Ultram Tab) 100 mg Q4H PRN PO 09/20/16 03:30 10/20/16 03:29 Pantoprazole Sodium (Protonix Tab) 40 mg QAM PO 09/21/16 09:00 10/21/16 08:59 Objective Vital Signs Date Time Temp Pulse Resp B/P Pulse Ox O2 Delivery O2 Flow Rate FiO2 09/20/16 07:45 Room Air 09/20/16 07:32 36.9 63 16 113/73 94 Room Air 09/20/16 00:00 Room Air 09/19/16 23:30 37.0 58 14 135/91 98 Room Air 09/19/16 15:45 Room Air 09/19/16 15:09 37.3 92 16 144/91 98 Room Air Physical Exam General Appearance: no apparent distress Neck: supple, trachea midline Respiratory/Chest: chest non-tender, lungs clear, normal breath sounds, no respiratory distress Cardiovascular: regular rate, rhythm, no edema, no murmur Abdomen: normal bowel sounds, non tender, soft Extremities: non-tender, no pedal edema Neurologic/Psychiatric: alert, normal mood/affect, oriented x 3 Skin: normal color, warm/dry, no rash Laboratory Results Results Past 24 Hours Test 09/20/16 05:12 Range/Units White Blood Count 7.16 4.8-10.8 K/uL Red Blood Count 4.17 4.2-5.4 M/uL Hemoglobin 12.5 12.0-16.0 g/dL Hematocrit 36.0 37-47 % Mean Corpuscular Volume 86.3 80-100 fL Mean Corpuscular Hemoglobin 30.0 25-34 pg Mean Corpuscular Hemoglobin Concent 34.7 32-36 g/dl RDW Standard Deviation 40.3 36.4-46.3 fL RDW Coefficient of Variation 12.8 11.5-14.5 % Platelet Count 345 130-400 K/uL Mean Platelet Volume 9.1 7.4-10.4 fL Sodium Level 142 136-145 mmol/L Potassium Level 3.6 3.5-5.1 mmol/L Chloride Level 104 98-107 mmol/L Carbon Dioxide Level 28 21-32 mmol/L Anion Gap 10.0 3-11 mmol/L Blood Urea Nitrogen 21 7-18 mg/dl Creatinine 3.50 0.60-1.20 mg/dl Est Creatinine Clear Calc Drug Dose 22.7 ml/min Estimated GFR () 20.7 Estimated GFR (Non- 17.8 BUN/Creatinine Ratio 5.9 10-20 Random Glucose 76 70-99 mg/dl Calcium Level 8.8 8.5-10.1 mg/dl Total Bilirubin 0.4 0.2-1 mg/dl Aspartate Amino Transf (AST/SGOT) 18 15-37 U/L Alanine Aminotransferase (ALT/SGPT) 50 12-78 U/L Alkaline Phosphatase 44 45-117 U/L Total Protein 6.7 6.4-8.2 gm/dl Albumin 3.0 3.4-5.0 gm/dl Globulin 3.7 2.5-4.0 gm/dl Albumin/Globulin Ratio 0.8 0.9-2 Assessment and Plan This is a 20 y/o F with PMH of Yi's Thyroiditis and RA on Methotrexate presented into the ER with continued abdominal pain and was admitted for VLAD ( creatinine 3.1) and continued abdominal pain. She was seen in the ER 4 days ago and was diagnosed with mesenteric adenitis. At that time she received a CT Abdo and Pelvis with contrast, IV Toradol and has been taking Ibuprofen 200mg TID for her pain. On this admission pt was given Morphine IV PRN and a GI and nephrology consult were ordered. Patient's creatinine remained elevated during hospital course. Repeat CT Abdo and Pelvis revealed mild pericholecystic edema, small amount of free pelvic fluid and a non obstructing right renal calculus. Abdo US on 09/18/16 showed an area of 9mm thickening in the gallbladder and HIDA scan was grossly normal with delayed visualization of the gallbladder. Per discussion with Dr. Elizondo he believes the kidney injury is multifactorial ( methotrexate, contrast, NSAIDs, dehydration). IVF was D/c on 09/18/16. Pt reported vaginal spotting on 09/18/16 AM. Diet is advanced to regular diet ( mechanical soft) today (09/19/16). 1. Abdominal pain 2/2 unclear etiology - Could be 2/2 Mesenteric Adenitis vs IBS ? - Pt continues to have diffuse lower abdominal pain. Pt advanced from full liquid diet to regular diet (mechanical soft) today. Abdominal US and HIDA scan for patient to evaluate GI function were grossly normal. - GI recommendations - Dr. Wilkinson reviewed the records and thought overall GI issues might be viral and worse in setting of immunosuppression. Creatinine is worse and patients overall symptoms better so no immediate plans for MR Enterography which requires contrast which could adversely affect kidney function. - Pending IgA and TTGT antibodies. - Changed Protonix IV to PO 40mg daily. - Continue with Zofran PRN for nausea. - Continue Hyoscyamine. - Continue Morphine 3mg Q4 PRN. - Less likely endometriosis considering pain not cyclic with periods 2. VLAD likely Multifactorial ATN (methotrexate, NSAIDs and IV contrast) - Diet is advanced to regular diet (mechanical soft). Patient is drinking well. - Creatinine is still elevated but trending down, 3.5<--4<--3.8<--3.6 - MTX held for now as is nephrotoxic, receives it weekly. - Nephro (Dr. Elizondo) on board - continue to observer creatinine and follow up on ANCA, FRANCESCA and IGG labs. - Continue to monitor 3. HTN (resolved) - Today BP is 113/73 - BP was in the 140s/90s, may be refractive to pain or fluid overload. - Given 5mg Amlodipine today PRN daily if BP >140. - Continue to monitor 4. Vaginal Spotting - Likely withdrawal bleeding from stopping OCPs - Restart OCP today 5. Headache - After consultation with Dr. Alston, 650mg Tylenol Q6 PRN for headache. 6. Elevated LFTs - Normal AST and ALT with mildly decreased Alk Phos 44 - Monospot, CMV IGM negative, and acute hepatitis panel are negative - Toxicology is positive for opiates 7. Rheumatoid arthritis - MTX held for now, NO NSAIDS. 8. Hypothyroidism - TSH was mildly elevated (5.3) but may represent euthyroid syndrome. - Continue levothyroxine 50mcg - Recommend outpatient follow up 9. DVT Proph: - Lovenox SQ daily, SCDs. Dispo: possible discharge tomorrow if creatinine is stable and patient is clinically stable. Reviewed: Pt Seen/Exam by Me History felt better this am but later started to have pain again after lunch Constitutional: denies: fever Respiratory: negative: short of breath Cardiovascular: denies chest pain Gastrointestinal/Abdominal: positive: abdominal pain General Appearance: no apparent distress Respiratory: lungs clear, no respiratory distress Cardiovascular: regular rate, rhythm Gastrointestinal: normal bowel sounds, soft, tenderness (nonspecific) Neurologic/Psychiatric: alert, oriented x 3 Assessment/Plan I have reviewed the medical record and performed a history and physical examination of this patient today. I have discussed the case with Dr. Marroquin. The above note reflects my findings, conclusions, and recommendations Since had pain again after lunch - planned to EGD in am. Follow
--- NOTE | 2016-09-20 14:27 | Gastroenterology Progress Note ---
Progress Note Date of Service: Sep 20, 2016 Subjective Pt evaluation today including: conversation w/ patient, physical exam, chart review, lab review, review of studies, review of inpatient medication list CC f/u abd pain, n/v HPI Pt felt good yesterday and was tolerating diet well. This am did not eat much and states she vomited her lunch. ONgoing abd pain now stating around umbilicus. Review of Systems Respiratory: No shortness of breath Cardiac: No chest pain Medications Current Inpatient Medications Medications (Trade) Dose Ordered Sig/Sara Route Start Time Stop Time Status Last Admin Dose Admin Al Hydrox/Mg Hydrox/Simethicone (Maalox Max Susp) 15 ml Q4H PRN PO 09/16/16 02:15 10/16/16 02:14 Magnesium Hydroxide (Milk Of Magnesia Susp) 30 ml Q6H PRN PO 09/16/16 02:15 10/16/16 02:14 Ondansetron HCl (Zofran Inj) 4 mg Q6H PRN IV 09/16/16 02:15 10/16/16 02:14 09/20/16 14:11 4 MG Cholecalciferol (Vitamin D Tab) 1,000 inter.unit DAILY PO 09/16/16 09:00 10/16/16 08:59 Ferrous Sulfate (Feosol Tab) 650 mg DAILY PO 09/16/16 09:00 10/16/16 08:59 Folic Acid (Folvite Tab) 1 mg DAILY PO 09/16/16 09:00 10/16/16 08:59 Levothyroxine Sodium (Synthroid Tab) 50 mcg DAILYBB PO 09/16/16 06:00 10/16/16 05:59 09/20/16 05:54 50 MCG Hyoscyamine Sulfate (Levsin Tab) 0.125 mg Q4H PRN PO 09/16/16 11:45 10/16/16 11:44 09/20/16 08:45 0.125 MG Enoxaparin Sodium (Lovenox Inj) 30 mg QAM SQ 09/16/16 13:00 10/16/16 12:59 09/20/16 08:44 30 MG Morphine Sulfate (MoRPHine SULFATE INJ) 3 mg Q4H PRN IV 09/18/16 09:00 10/02/16 08:59 09/18/16 13:11 3 MG Amlodipine Besylate (Norvasc Tab) 5 mg QAM PO 09/19/16 09:00 10/19/16 08:59 09/20/16 08:45 5 MG Acetaminophen (Tylenol Tab) 650 mg Q4H PRN PO 09/18/16 19:30 10/18/16 19:29 09/18/16 20:01 650 MG Acetaminophen/ Hydrocodone Bitart ([place] 5/325 Tab) 1 tab Q6H PRN PO 09/20/16 03:30 10/04/16 03:29 Acetaminophen/ Hydrocodone Bitart ([place] 5/325 Tab) 2 tab Q6H PRN PO 09/20/16 03:30 10/04/16 03:29 Tramadol HCl (Ultram Tab) 50 mg Q4H PRN PO 09/20/16 03:30 10/20/16 03:29 Tramadol HCl (Ultram Tab) 100 mg Q4H PRN PO 09/20/16 03:30 10/20/16 03:29 Pantoprazole Sodium (Protonix Tab) 40 mg QAM PO 09/21/16 09:00 10/21/16 08:59 Objective Vital Signs Date Time Temp Pulse Resp B/P Pulse Ox O2 Delivery O2 Flow Rate FiO2 09/20/16 07:45 Room Air 09/20/16 07:32 36.9 63 16 113/73 94 Room Air 09/20/16 00:00 Room Air 09/19/16 23:30 37.0 58 14 135/91 98 Room Air 09/19/16 15:45 Room Air 09/19/16 15:09 37.3 92 16 144/91 98 Room Air Physical Exam General Appearance: WD/WN, no apparent distress Respiratory/Chest: normal breath sounds, no respiratory distress Cardiovascular: no murmur Abdomen: normal bowel sounds, non tender, soft, no organomegaly Laboratory Results Last 24 Hours Test 09/20/16 05:12 White Blood Count 7.16 K/uL Red Blood Count 4.17 M/uL Hemoglobin 12.5 g/dL Hematocrit 36.0 % Mean Corpuscular Volume 86.3 fL Mean Corpuscular Hemoglobin 30.0 pg Mean Corpuscular Hemoglobin Concent 34.7 g/dl RDW Standard Deviation 40.3 fL RDW Coefficient of Variation 12.8 % Platelet Count 345 K/uL Mean Platelet Volume 9.1 fL Sodium Level 142 mmol/L Potassium Level 3.6 mmol/L Chloride Level 104 mmol/L Carbon Dioxide Level 28 mmol/L Anion Gap 10.0 mmol/L Blood Urea Nitrogen 21 mg/dl Creatinine 3.50 mg/dl Est Creatinine Clear Calc Drug Dose 22.7 ml/min Estimated GFR () 20.7 Estimated GFR (Non- 17.8 BUN/Creatinine Ratio 5.9 Random Glucose 76 mg/dl Calcium Level 8.8 mg/dl Total Bilirubin 0.4 mg/dl Aspartate Amino Transf (AST/SGOT) 18 U/L Alanine Aminotransferase (ALT/SGPT) 50 U/L Alkaline Phosphatase 44 U/L Total Protein 6.7 gm/dl Albumin 3.0 gm/dl Globulin 3.7 gm/dl Albumin/Globulin Ratio 0.8 Assessment and Plan abd pain--no better today. was lower, now periumbilical-- unclear etiology , TSH only mildly elevated and cortisol normal. abnl GB on CT, GB u/s and HIDA--suggestive of some chronic cholecystitis but not convinced her symptoms are from GB nausea and vomiting--likely from process causing abd pain--worse today. EGD tomorrow. elevated LFTs--improved--monospot negative, CMV IGM neg, acute hep panel neg. Abnormal SB on CT 09/12/16---proximal SB thickening LUQ small reactive lymph nodes on CT renal failure per nephrology Plans TTG is pending. Because of ongoing N/V will set up EGD for tomorrow with DR Wilkinson. Procedure and risks explained to patient which include but not limited to medication reaction, bleeding, perforation, aspiration. Cr better but not in range comfortable with orderiing MR enterography. Discussed with DR Figueroa. I am going off service today at [address] Wilkinson assuming GI care then.
[2016-09-20 15:37] VITALS: BP 140/82; PULSE 63; TEMP 37.1; O2SAT 96
[2016-09-20 19:28] VITALS: BP 140/82; PULSE 63; TEMP 37.1; O2SAT 96
[2016-09-20] MEDS: FALMINA PO SCH (21:21)
[2016-09-20 23:00] VITALS: BP 128/81; PULSE 60; TEMP 37.1; O2SAT 96
[2016-09-21] VITALS (8 sets, daily range): BP systolic 113–128; BP diastolic 79–84; PULSE 56–97; TEMP 36.7–37.1; O2SAT 96–99
[2016-09-21] MEDS: LEVOTHYROXINE 50 MCG TAB PO SCH (05:46)
[2016-09-21 07:27] LABS: HEMATOCRIT 39.8 % (37-47); MEAN CELL VOLUME 86.1 fL (80-100); MEAN CORPUSCULAR HEMOGLOBIN 29.9 pg (25-34); MEAN CORPUSCULAR HGB CONC 34.7 g/dl (32-36); MEAN PLATELET VOLUME 9.2 fL (7.4-10.4); PLATELET COUNT 391 K/uL (130-400); RED BLOOD COUNT 4.62 M/uL (4.2-5.4); WHITE BLOOD COUNT 7.01 K/uL (4.8-10.8)
[2016-09-21 07:49] LABS: BUN/CREATININE RATIO 7.2 (10-20); CALCIUM 9.4 mg/dl (8.5-10.1); CREATININE 2.7 mg/dl (0.60-1.20); POTASSIUM 3.9 mmol/L (3.5-5.1)
[2016-09-21 07:52] LABS: ALB/GLOB RATIO 0.8 (0.9-2)
--- NOTE | 2016-09-21 08:48 | Nephrology Progress Note ---
Nephrology Progress Note Date of Service Sep 21, 2016. Chief Complaint Follow up evaluation of acute kidney injury Subjective Miss Simmons was seen & examined in her hospital room this morning. She complains of nausea and periumbilical discomfort. She is scheduled for an EGD today. The patient was admitted w/ VLAD. She currently denies fever, gross hematuria, dysuria, angina or dyspnea. She reports brisk urine output. Review of Systems Constitutional: No fever Cardiovascular: No chest pain Respiratory: No dyspnea at rest Abdomen: + nausea, + pain Genitourinary - Female: No dysuria, No gross hematuria Extremities: No leg edema A complete review of systems was performed. Pertinent positives are noted above. All other systems are negative. Vital Signs Last 8 Hrs Date Time Temp Pulse Resp B/P Pulse Ox O2 Delivery O2 Flow Rate FiO2 09/21/16 07:25 36.7 56 16 117/80 96 Room Air 09/21/16 05:28 37.1 60 16 128/81 96 Room Air I & O 24-Hour Column 09/21/16 08:00 Intake Total 960 ml Output Total 2825 ml Balance -1865 ml Last Recorded Weight Weight (Kilograms): 71.800 Physical Exam General Appearance: no apparent distress Head: normocephalic, atraumatic Eyes: PERRL, EOMI Neck: no adenopathy Respiratory/Chest: lungs clear, no respiratory distress Cardiovascular: regular rate, rhythm, no murmur Abdomen/GI: normal bowel sounds, soft (mildly tender in periumbilical area. No rebound tenderness or guarding) Extremities/Musculoskelatal: no pedal edema Neurologic/Psych: alert, oriented x 3 Family History Appendicitis Social History Smokeless Tobacco Use: No Alcohol Use: occasionally Drug Use: none Marital Status: single Occupation: [employer] student Laboratory Results Past 24 Hours 09/21/16 07:03 09/21/16 07:03 Test 09/21/16 07:03 Red Blood Count 4.62 M/uL (4.2-5.4) Mean Corpuscular Volume 86.1 fL (80-100) Mean Corpuscular Hemoglobin 29.9 pg (25-34) Mean Corpuscular Hemoglobin Concent 34.7 g/dl (32-36) RDW Standard Deviation 40.7 fL (36.4-46.3) RDW Coefficient of Variation 12.9 % (11.5-14.5) Mean Platelet Volume 9.2 fL (7.4-10.4) Anion Gap 12.0 mmol/L (3-11) Est Creatinine Clear Calc Drug Dose 29.4 ml/min Estimated GFR () 28.3 Estimated GFR (Non- 24.4 BUN/Creatinine Ratio 7.2 (10-20) Calcium Level 9.4 mg/dl (8.5-10.1) Total Bilirubin 0.4 mg/dl (0.2-1) Aspartate Amino Transf (AST/SGOT) 35 U/L (15-37) Alanine Aminotransferase (ALT/SGPT) 61 U/L (12-78) Alkaline Phosphatase 47 U/L (45-117) Total Protein 7.4 gm/dl (6.4-8.2) Albumin 3.3 gm/dl (3.4-5.0) Globulin 4.1 gm/dl (2.5-4.0) Albumin/Globulin Ratio 0.8 (0.9-2) Allergies Coded Allergies: No Known Allergies (Unverified , 09/21/16) Medications Current Inpatient Medications Medications (Trade) Dose Ordered Sig/Sara Route Start Time Stop Time Status Last Admin Dose Admin Al Hydrox/Mg Hydrox/Simethicone (Maalox Max Susp) 15 ml Q4H PRN PO 09/16/16 02:15 10/16/16 02:14 Magnesium Hydroxide (Milk Of Magnesia Susp) 30 ml Q6H PRN PO 09/16/16 02:15 10/16/16 02:14 Ondansetron HCl (Zofran Inj) 4 mg Q6H PRN IV 09/16/16 02:15 10/16/16 02:14 09/20/16 18:13 4 MG Cholecalciferol (Vitamin D Tab) 1,000 inter.unit DAILY PO 09/16/16 09:00 10/16/16 08:59 Ferrous Sulfate (Feosol Tab) 650 mg DAILY PO 09/16/16 09:00 10/16/16 08:59 Folic Acid (Folvite Tab) 1 mg DAILY PO 09/16/16 09:00 10/16/16 08:59 Levothyroxine Sodium (Synthroid Tab) 50 mcg DAILYBB PO 09/16/16 06:00 10/16/16 05:59 09/21/16 05:46 50 MCG Hyoscyamine Sulfate (Levsin Tab) 0.125 mg Q4H PRN PO 09/16/16 11:45 10/16/16 11:44 09/20/16 18:13 0.125 MG Enoxaparin Sodium (Lovenox Inj) 30 mg QAM SQ 09/16/16 13:00 10/16/16 12:59 09/20/16 08:44 30 MG Morphine Sulfate (MoRPHine SULFATE INJ) 3 mg Q4H PRN IV 09/18/16 09:00 10/02/16 08:59 09/18/16 13:11 3 MG Amlodipine Besylate (Norvasc Tab) 5 mg QAM PO 09/19/16 09:00 10/19/16 08:59 09/20/16 08:45 5 MG Acetaminophen (Tylenol Tab) 650 mg Q4H PRN PO 09/18/16 19:30 10/18/16 19:29 09/18/16 20:01 650 MG Acetaminophen/ Hydrocodone Bitart ([place] 5/325 Tab) 1 tab Q6H PRN PO 09/20/16 03:30 10/04/16 03:29 Acetaminophen/ Hydrocodone Bitart ([place] 5/325 Tab) 2 tab Q6H PRN PO 09/20/16 03:30 10/04/16 03:29 Tramadol HCl (Ultram Tab) 50 mg Q4H PRN PO 09/20/16 03:30 10/20/16 03:29 Tramadol HCl (Ultram Tab) 100 mg Q4H PRN PO 09/20/16 03:30 10/20/16 03:29 Pantoprazole Sodium (Protonix Tab) 40 mg QAM PO 09/21/16 09:00 10/21/16 08:59 Non-Formulary Medication (Non-Formulary Patient'S Own Med) 1 ea DAILY@2200 PO 09/20/16 22:00 10/20/16 21:59 09/20/16 21:21 1 EA Impression (1) VLAD (acute kidney injury) (2) Rheumatoid arthritis (3) Mesenteric adenitis (4) Nausea and vomiting Ashley is a 20-year-old female w/ VLAD in the setting of recent gastroenteritis. Imaging revealed mesenteric adenitis. PMH: autoimmune thyroiditis, hypothyroidism and RA treated w/ MTX. Renal ultrasound showed no acute findings. There is no evidence chronic kidney disease on imaging or by prior laboratory studies. Serum creatinine was 0.8 milligrams/deciliter earlier this month. Urinalysis with microscopy initially showed microscopic hematuria (few RBC's/hpf) and hyaline casts. Repeat UA/ micro bland and acellular. Clinical presentation is c/w VLAD/ATN from prerenal azotemia, NSAID use and complicated by iodinated contrast and methotrexate. Less likely to be AIN. Presentation not consistent with GN given normal UA, stable renal function and normal ESR. Creatinine starting to show evidence of renal recovery. Blood pressure appropriate after stopping IVF and starting amlodipine. Recommendations ACUTE KIDNEY INJURY: -- ATN due to dehydration, IV contrast, NSAID use -- Urine sediment is now acellular -- Patient is in recovery phase -- Volume status and electrolyte balance remain acceptable. Continue to monitor PRP -- IgG4 is within acceptable limits -- Awaiting FRANCESCA, ANCA results -- Continue to avoid NSAIDS and hold methotrexate HYPERTENSION: -- Blood pressure is acceptable -- Continue amlodipine therapy ABDOMINAL DISCOMFORT: -- Await results of EGD RHEUMATOID ARTHRITIS: -- Hold methotrexate until kidney function has recovered
[2016-09-21] MEDS: CHOLECALCIFEROL 1000 INTER.UNIT TAB PO SCH (09:00)
[2016-09-21] MEDS: AMLODIPINE BESYLATE 5 MG TAB PO SCH ×2 (09:00→14:25)
[2016-09-21] MEDS: FERROUS SULFATE 325 MG TAB PO SCH (09:00)
--- NOTE | 2016-09-21 12:52 | Endo History and Physical ---
History & Physical Date of Service: Sep 21, 2016. Chief Complaint: Nausea and Vomiting Referring Physician: DR. Figueroa History of Present Illness For EGD Past Surgical History Hx Cardiac Surgery: No Hx Abdominal Surgery: No Hx Post-Op Nausea and Vomiting: Yes Hx Cancer Surgery: No Hx Thoracic Surgery: Yes (tonsils and adenoids 2000) Hx Orthopedic: Yes (wrost arthroscopy 2015) Hx Urinary Tract Surgery: No Social History Smoking Status: Never Smoker Smokeless Tobacco Use: No Hx Substance Use: No Hx Alcohol Use: No Allergies Coded Allergies: No Known Allergies (Unverified , 09/21/16) Current Medications Reported Home Medications Medications Dose Route/Sig Max Daily Dose Days Date Category Vitamin D3 (Cholecalciferol) 1,000 Unit Tab 1 Tab PO DAILY 90 09/16/16 Reported Control Pills (Miscellaneous) Tab 1 Tab PO DAILY 09/12/16 Reported Methotrexate (Methotrexate Sodium) 2.5 Mg Tab 6 Tab PO WK 28 09/12/16 Reported Ferrous Sulfate 325 Mg Tab 650 Mg PO DAILY 09/12/16 Reported Folvite (Folic Acid) 1 Mg Tab 1 Mg PO DAILY 06/24/16 Reported Levothyroxine Sodium 50 Mcg Tab 50 Mcg PO DAILY 90 06/24/16 Reported Vital Signs Weight (Kilograms): 71.800 Height (Feet): 5 Height (Inches): 0.00 Date Time Temp Pulse Resp B/P Pulse Ox O2 Delivery O2 Flow Rate FiO2 09/21/16 12:34 36.6 70 16 146/94 94 Room Air 09/21/16 12:21 36.8 97 18 120/79 98 Room Air 09/21/16 07:30 Room Air 09/21/16 07:30 37.1 60 16 128/81 96 Room Air 09/21/16 07:25 36.7 56 16 117/80 96 Room Air 09/21/16 05:28 37.1 60 16 128/81 96 Room Air 09/21/16 00:22 Room Air 09/20/16 23:00 37.1 60 16 128/81 96 Room Air 09/20/16 19:28 37.1 63 16 140/82 96 Room Air 09/20/16 18:29 Room Air 09/20/16 15:37 37.1 63 16 140/82 96 Room Air Physical Exam General Appearance: + obese Respiratory/Chest: Respiratory effort: no dyspnea Cardiovascular: Heart Auscultation: RRR Abdomen: Inspection & Palpation: soft Assessment and Plan N and V for EGD
--- NOTE | 2016-09-21 13:10 | Discharge Instructions ---
Endoscopy Patient Instructions Date / Procedure(s) Performed Sep 21, 2016. EGD Allergy Information Coded Allergies: No Known Allergies (Unverified , 09/21/16) Discharge Date / Findings Sep 21, 2016. Normal EGD Medication Instructions Restart Stopped Medication(s): resume meds Current Inpatient Medications Medications (Trade) Dose Ordered Sig/Sara Route Start Time Stop Time Status Last Admin Dose Admin Al Hydrox/Mg Hydrox/Simethicone (Maalox Max Susp) 15 ml Q4H PRN PO 09/16/16 02:15 10/16/16 02:14 Magnesium Hydroxide (Milk Of Magnesia Susp) 30 ml Q6H PRN PO 09/16/16 02:15 10/16/16 02:14 Ondansetron HCl (Zofran Inj) 4 mg Q6H PRN IV 09/16/16 02:15 10/16/16 02:14 09/20/16 18:13 4 MG Cholecalciferol (Vitamin D Tab) 1,000 inter.unit DAILY PO 09/16/16 09:00 10/16/16 08:59 Ferrous Sulfate (Feosol Tab) 650 mg DAILY PO 09/16/16 09:00 10/16/16 08:59 Folic Acid (Folvite Tab) 1 mg DAILY PO 09/16/16 09:00 10/16/16 08:59 Levothyroxine Sodium (Synthroid Tab) 50 mcg DAILYBB PO 09/16/16 06:00 10/16/16 05:59 09/21/16 05:46 50 MCG Hyoscyamine Sulfate (Levsin Tab) 0.125 mg Q4H PRN PO 09/16/16 11:45 10/16/16 11:44 09/20/16 18:13 0.125 MG Enoxaparin Sodium (Lovenox Inj) 30 mg QAM SQ 09/16/16 13:00 10/16/16 12:59 09/20/16 08:44 30 MG Morphine Sulfate (MoRPHine SULFATE INJ) 3 mg Q4H PRN IV 09/18/16 09:00 10/02/16 08:59 09/18/16 13:11 3 MG Amlodipine Besylate (Norvasc Tab) 5 mg QAM PO 09/19/16 09:00 10/19/16 08:59 09/20/16 08:45 5 MG Acetaminophen (Tylenol Tab) 650 mg Q4H PRN PO 09/18/16 19:30 10/18/16 19:29 09/18/16 20:01 650 MG Acetaminophen/ Hydrocodone Bitart ([place] 5/325 Tab) 1 tab Q6H PRN PO 09/20/16 03:30 10/04/16 03:29 Acetaminophen/ Hydrocodone Bitart ([place] 5/325 Tab) 2 tab Q6H PRN PO 09/20/16 03:30 10/04/16 03:29 Tramadol HCl (Ultram Tab) 50 mg Q4H PRN PO 09/20/16 03:30 10/20/16 03:29 Tramadol HCl (Ultram Tab) 100 mg Q4H PRN PO 09/20/16 03:30 10/20/16 03:29 Pantoprazole Sodium (Protonix Tab) 40 mg QAM PO 09/21/16 09:00 10/21/16 08:59 Non-Formulary Medication (Non-Formulary Patient'S Own Med) 1 ea DAILY@2200 PO 09/20/16 22:00 10/20/16 21:59 09/20/16 21:21 1 EA Provider Instructions Activity Restrictions - No exercising or heavy lifting for 24 hours. - Do not drink alcohol the day of the procedure. - Do not drive a car or operate machinery until the day after the procedure. - Do not make any important decisions or sign important papers in 24 hours after the procedure. Following Day: - Return to full activity which may include returning to work/school. Diet Start your diet with liquids and light foods (jello, soup, juice, toast). Then eat your usual diet if not nauseated. Treatment For Common After Affects For mild abdominal pain, bloating, or excessive gas: - Rest - Eat lightly - Lie on right side Follow-Up Information Follow-up with as scheduled Anesthesia Information What You Should Know You have had a procedure that required some medicine to reduce anxiety and discomfort. This treatment is called moderate sedation. After receiving the treatment, you may be sleepy, but you will be able to breathe on your own. The effects of the treatment may last for several hours. Follow these instructions along with Activity/Diet recommendations noted above: * Do NOT do anything where dizziness or clumsiness would be dangerous. * Rest quietly at home today, then you can be up and about tomorrow. * Have a responsible person stay with you the rest of today. * You may have had an I.V. today. If so, you may take the dressing off later today. Recommendations Call your doctor if: * Trouble breathing * Continuous vomiting for more than 24 hours * Temperature above 101 degrees * Severe abdominal pain or bloating * Pain not relieved by pain medicine ordered * There is increased drainage or redness from any incision * A large amount of rectal bleeding greater than 2-3 tablespoons. (If you had a polyp/s removed or have hemorrhoids, a small amount of blood - from the rectum is to be expected.) * You have any unanswered questions or concerns. IN THE EVENT OF A SERIOUS EMERGENCY, GO TO THE NEAREST EMERGENCY ROOM Your discharge instructions were prepared by provider Hi Wilkinson. Patient Instructions Signature Page Ashley Simmons Patient (or Guardian) Signature/Date: I have read and understand the instructions given to me by my caregivers. Caregiver/RN/Doctor Signature/Date: The above-named patient and/or guardian has received patient instructions on this date. + Original Patient Signature Page (only) stays with chart. Please make copy for patient.
--- NOTE | 2016-09-21 13:12 | Endo History and Physical ---
History & Physical Date of Service: Sep 21, 2016. Chief Complaint: Nausea and vomiting Referring Physician: Dr Figueroa History of Present Illness For EGD Past Surgical History Hx Cardiac Surgery: No Hx Abdominal Surgery: No Hx Post-Op Nausea and Vomiting: Yes Hx Cancer Surgery: No Hx Thoracic Surgery: Yes (tonsils and adenoids 2000) Hx Orthopedic: Yes (wrost arthroscopy 2015) Hx Urinary Tract Surgery: No Social History Smoking Status: Never Smoker Smokeless Tobacco Use: No Hx Substance Use: No Hx Alcohol Use: No Allergies Coded Allergies: No Known Allergies (Unverified , 09/21/16) Current Medications Reported Home Medications Medications Dose Route/Sig Max Daily Dose Days Date Category Vitamin D3 (Cholecalciferol) 1,000 Unit Tab 1 Tab PO DAILY 90 09/16/16 Reported Control Pills (Miscellaneous) Tab 1 Tab PO DAILY 09/12/16 Reported Methotrexate (Methotrexate Sodium) 2.5 Mg Tab 6 Tab PO WK 28 09/12/16 Reported Ferrous Sulfate 325 Mg Tab 650 Mg PO DAILY 09/12/16 Reported Folvite (Folic Acid) 1 Mg Tab 1 Mg PO DAILY 06/24/16 Reported Levothyroxine Sodium 50 Mcg Tab 50 Mcg PO DAILY 90 06/24/16 Reported Vital Signs Weight (Kilograms): 71.800 Height (Feet): 5 Height (Inches): 0.00 Date Time Temp Pulse Resp B/P Pulse Ox O2 Delivery O2 Flow Rate FiO2 09/21/16 12:34 36.6 70 16 146/94 94 Room Air 09/21/16 12:21 36.8 97 18 120/79 98 Room Air 09/21/16 07:30 Room Air 09/21/16 07:30 37.1 60 16 128/81 96 Room Air 09/21/16 07:25 36.7 56 16 117/80 96 Room Air 09/21/16 05:28 37.1 60 16 128/81 96 Room Air 09/21/16 00:22 Room Air 09/20/16 23:00 37.1 60 16 128/81 96 Room Air 09/20/16 19:28 37.1 63 16 140/82 96 Room Air 09/20/16 18:29 Room Air 09/20/16 15:37 37.1 63 16 140/82 96 Room Air Physical Exam General Appearance: + obese Respiratory/Chest: Respiratory effort: no dyspnea Cardiovascular: Heart Auscultation: RRR Abdomen: Inspection & Palpation: soft (N and V for EGD)
--- NOTE | 2016-09-21 13:15 | GI REPORT ---
Procedure Date: 09/21/2016 1:01 PM Procedure: Upper GI endoscopy Indications: Periumbilical abdominal pain, Nausea with vomiting Medicines: Propofol total dose 250 mg IV Complications: No immediate complications. Estimated Blood Loss: Estimated blood loss was minimal. Procedure: Pre-Anesthesia Assessment: - Prior to the procedure, a History and Physical was performed, and patient medications, allergies and sensitivities were reviewed. The patient's tolerance of previous anesthesia was reviewed. - The risks and benefits of the procedure and the sedation options and risks were discussed with the patient. All questions were answered and informed consent was obtained. After obtaining informed consent, the endoscope was passed under direct vision. Throughout the procedure, the patient's blood pressure, pulse, and oxygen saturations were monitored continuously. The scope was introduced through the mouth, and advanced to the third part of duodenum. The upper GI endoscopy was accomplished without difficulty. The patient tolerated the procedure well. Findings: The examined esophagus was normal. The entire examined stomach was normal. The examined duodenum was normal. Biopsies were taken with a cold forceps for histology. Estimated blood loss was minimal. Impression: - Normal esophagus. - Normal stomach. - Normal examined duodenum. Biopsied. Recommendation: - Return patient to [facility] for ongoing care. Hi Wilkinson M.D. Hi Wilkinson MD 09/21/2016 1:15:24 PM This report has been signed electronically. Note Initiated On: 09/21/2016 1:01 PM I attest to the content of the Intraoperative Record and orders documented therein, exceptions below
--- NOTE | 2016-09-21 13:28 | PROGRESS NOTE ---
DATE: 09/21/2016 The patient had an EGD today to evaluate her periumbilical pain, nausea, and vomiting. Her EGD was totally normal. The exam was extended deep into the third portion of the duodenum. Duodenal biopsies were obtained for possible Giardia, but the mucosa appeared normal endoscopically. IMPRESSION: The patient continues to have some abdominal pain, nausea, and vomiting. I suspect her symptoms may be on the basis of some of her medications, particularly her opiates. She does have some nonspecific gallbladder findings but her pain pattern does not really correlate with gallbladder disease. We will await her small bowel biopsies, but I suspect medications may be causing some of her symptoms.
--- NOTE | 2016-09-21 13:31 | Anesthesiology Progress Note ---
Anesthesia Post Op Note Date & Time Sep 21, 2016 at 13:32 Vital Signs Pain Intensity: 0.0 Vital Signs Past 12 Hours Date Time Temp Pulse Resp B/P Pulse Ox O2 Delivery O2 Flow Rate FiO2 09/21/16 13:17 89 20 130/71 68 Room Air 09/21/16 12:34 36.6 70 16 146/94 94 Room Air 09/21/16 12:21 36.8 97 18 120/79 98 Room Air 09/21/16 07:30 Room Air 09/21/16 07:30 37.1 60 16 128/81 96 Room Air 09/21/16 07:25 36.7 56 16 117/80 96 Room Air 09/21/16 05:28 37.1 60 16 128/81 96 Room Air Notes Mental Status: alert / awake / arousable, participated in evaluation Pt Amnestic to Procedure: Yes Nausea / Vomiting: adequately controlled Pain: adequately controlled Airway Patency, RR, SpO2: stable & adequate BP & HR: stable & adequate Hydration State: stable & adequate Anesthetic Complications: no major complications apparent
[2016-09-21] MEDS: ENOXAPARIN 30 MG/0.3 ML SYR SQ SCH (14:26)
[2016-09-21] MEDS: PANTOprazole SOD 40 MG TAB PO SCH (14:48)
[2016-09-21] MEDS: TRAMADOL HCL 50 MG TAB PO PRN ×2 (15:30→22:22)
--- NOTE | 2016-09-21 17:57 | Family Medicine Progress Note ---
Progress Note Date of Service Sep 21, 2016. Subjective Pt evaluation today including: conversation w/ patient, conversation w/ family , physical exam, chart review, lab review, review of studies, conversation w/ research consultant, review of inpatient medication list Pain: Lower abdominal pain 5/10 PO Intake: adequate Voiding: no voiding problems Pt reports improvement in abdominal pain, reports 5/10 intensity in the lower abdomen and Rt sided flank pain, denies urinary urgency, dysuria, frequency, hematuria. no vaginal d/c. 1 episode of N/V yesterday after lunch. Additional Hx: , Hx of Ovarian cyst (Age 15), FHx Ovarian cyst, Not sexually active within 2 yrs, no Hx of STI/ PID, Vaginal spotting in hospital following stopping of control pill, resolved after restarting medication Constitutional: No chills, No fatigue, No fever Respiratory: No cough, No shortness of breath, No sputum, No wheezing Cardiovascular: No PND, No chest pain, No claudication, No edema Abdomen: + nausea, + pain (RLQ, Rt flank, Suprapubic), + vomiting Female : + problem reported (vaginal spotting resolved after restarting control), No dysuria, No hematuria, No urinary frequency, No vaginal discharge Skin: No itch, No rash Medications Current Inpatient Medications Medications (Trade) Dose Ordered Sig/Sraa Route Start Time Stop Time Status Last Admin Dose Admin Al Hydrox/Mg Hydrox/Simethicone (Maalox Max Susp) 15 ml Q4H PRN PO 09/16/16 02:15 10/16/16 02:14 Magnesium Hydroxide (Milk Of Magnesia Susp) 30 ml Q6H PRN PO 09/16/16 02:15 10/16/16 02:14 Ondansetron HCl (Zofran Inj) 4 mg Q6H PRN IV 09/16/16 02:15 10/16/16 02:14 09/20/16 18:13 4 MG Cholecalciferol (Vitamin D Tab) 1,000 inter.unit DAILY PO 09/16/16 09:00 10/16/16 08:59 Ferrous Sulfate (Feosol Tab) 650 mg DAILY PO 09/16/16 09:00 10/16/16 08:59 Folic Acid (Folvite Tab) 1 mg DAILY PO 09/16/16 09:00 10/16/16 08:59 Levothyroxine Sodium (Synthroid Tab) 50 mcg DAILYBB PO 09/16/16 06:00 10/16/16 05:59 09/21/16 05:46 50 MCG Hyoscyamine Sulfate (Levsin Tab) 0.125 mg Q4H PRN PO 09/16/16 11:45 10/16/16 11:44 09/20/16 18:13 0.125 MG Enoxaparin Sodium (Lovenox Inj) 30 mg QAM SQ 09/16/16 13:00 10/16/16 12:59 09/21/16 14:26 30 MG Morphine Sulfate (MoRPHine SULFATE INJ) 3 mg Q4H PRN IV 09/18/16 09:00 10/02/16 08:59 09/18/16 13:11 3 MG Amlodipine Besylate (Norvasc Tab) 5 mg QAM PO 09/19/16 09:00 10/19/16 08:59 09/21/16 14:25 5 MG Acetaminophen (Tylenol Tab) 650 mg Q4H PRN PO 09/18/16 19:30 10/18/16 19:29 09/18/16 20:01 650 MG Acetaminophen/ Hydrocodone Bitart ([place] 5/325 Tab) 1 tab Q6H PRN PO 09/20/16 03:30 10/04/16 03:29 Acetaminophen/ Hydrocodone Bitart ([place] 5/325 Tab) 2 tab Q6H PRN PO 09/20/16 03:30 10/04/16 03:29 Tramadol HCl (Ultram Tab) 50 mg Q4H PRN PO 09/20/16 03:30 10/20/16 03:29 Tramadol HCl (Ultram Tab) 100 mg Q4H PRN PO 09/20/16 03:30 10/20/16 03:29 09/21/16 15:30 100 MG Pantoprazole Sodium (Protonix Tab) 40 mg QAM PO 09/21/16 09:00 10/21/16 08:59 09/21/16 14:48 40 MG Non-Formulary Medication (Non-Formulary Patient'S Own Med) 1 ea DAILY@2200 PO 09/20/16 22:00 10/20/16 21:59 09/20/16 21:21 1 EA Objective Vital Signs Date Time Temp Pulse Resp B/P Pulse Ox O2 Delivery O2 Flow Rate FiO2 09/21/16 15:57 37.0 76 18 121/80 99 Room Air 09/21/16 15:15 Room Air 09/21/16 14:20 37.1 58 16 113/79 96 Room Air 09/21/16 13:45 60 20 116/74 98 Room Air 09/21/16 13:33 61 20 120/80 94 Room Air 09/21/16 13:17 89 20 130/71 98 Room Air 09/21/16 12:34 36.6 70 16 146/94 94 Room Air 09/21/16 12:21 36.8 97 18 120/79 98 Room Air 09/21/16 07:30 Room Air 09/21/16 07:30 37.1 60 16 128/81 96 Room Air 09/21/16 07:25 36.7 56 16 117/80 96 Room Air 09/21/16 05:28 37.1 60 16 128/81 96 Room Air 09/21/16 00:22 Room Air 09/20/16 23:00 37.1 60 16 128/81 96 Room Air Physical Exam General Appearance: WD/WN, no apparent distress Eyes: PERRL, EOMI Neck: supple, no adenopathy, trachea midline Respiratory/Chest: lungs clear, normal breath sounds, no respiratory distress Cardiovascular: regular rate, rhythm, no edema, no murmur Abdomen: normal bowel sounds, soft, no organomegaly, + tenderness (RLQ, suprapubic ( 6/10 tenderness on palpation)), + pertinent finding (no rebound, no guarding, no rigidity) Extremities: no pedal edema, no calf tenderness Neurologic/Psychiatric: alert, normal mood/affect, oriented x 3 Skin: normal color, warm/dry, no rash Laboratory Results Results Past 24 Hours Test 09/21/16 07:03 09/21/16 17:09 Range/Units White Blood Count 7.01 4.8-10.8 K/uL Red Blood Count 4.62 4.2-5.4 M/uL Hemoglobin 13.8 12.0-16.0 g/dL Hematocrit 39.8 37-47 % Mean Corpuscular Volume 86.1 80-100 fL Mean Corpuscular Hemoglobin 29.9 25-34 pg Mean Corpuscular Hemoglobin Concent 34.7 32-36 g/dl RDW Standard Deviation 40.7 36.4-46.3 fL RDW Coefficient of Variation 12.9 11.5-14.5 % Platelet Count 391 130-400 K/uL Mean Platelet Volume 9.2 7.4-10.4 fL Sodium Level 143 136-145 mmol/L Potassium Level 3.9 3.5-5.1 mmol/L Chloride Level 105 98-107 mmol/L Carbon Dioxide Level 26 21-32 mmol/L Anion Gap 12.0 3-11 mmol/L Blood Urea Nitrogen 20 7-18 mg/dl Creatinine 2.70 0.60-1.20 mg/dl Est Creatinine Clear Calc Drug Dose 29.4 ml/min Estimated GFR () 28.3 Estimated GFR (Non- 24.4 BUN/Creatinine Ratio 7.2 10-20 Random Glucose 82 70-99 mg/dl Calcium Level 9.4 8.5-10.1 mg/dl Total Bilirubin 0.4 0.2-1 mg/dl Aspartate Amino Transf (AST/SGOT) 35 15-37 U/L Alanine Aminotransferase (ALT/SGPT) 61 12-78 U/L Alkaline Phosphatase 47 45-117 U/L Total Protein 7.4 6.4-8.2 gm/dl Albumin 3.3 3.4-5.0 gm/dl Globulin 4.1 2.5-4.0 gm/dl Albumin/Globulin Ratio 0.8 0.9-2 Assessment and Plan 20 yo F w. PMhx Of RA ( on MTX at home) and hx of ovarian cyst (dx age 15) p/w RLQ abdominal pain, recurrent N/V of , s/p Abdominal/Pelvic CT, Gallbladder U/S , HIDA Scan showing, EGD all showing no clear etiology of abdominal pain Abdominal pain - diffuse lower abdominal pain, worse in RLQ, some improvement from admission - etiology unknown following thorough GI workup, - EGD (09/21) was normal, awaiting biopsy but mucosa appeared normal - Considering GI causes: IBS, Medication-induced (Opiate) - Considering QUALITY IMPROVEMENT COORDINATOR causes: ovarian cyst recurrence vs. torsion unlikely based on patient's exam, negative UPT makes unlikely, PID less likely given hx,exam no hx of STI's, no sexual activity in last 2 yrs, no vaginal d/c -Ordered Gonnoreah, Chlamydia Urine test -QUALITY IMPROVEMENT COORDINATOR consulted for further input. F/u report - Ordered Pelvic U/S, F/u tmr - Pending IgA and TTGT antibodies. - Coninue Protonix PO 40mg daily. - Continue with Zofran PRN for nausea. - Continue Hyoscyamine. - Continue Morphine 3mg Q4 PRN. VLAD - likely Multifactorial ATN (methotrexate, NSAIDs and IV contrast) per nephrology - Creatinine trending down, 2.7 <--3.5<--4<--3.8<--3.6 - MTX remains held for nephrotoxicity - F/U ANCA, FRANCESCA and IGG labs. - Continue to monitor PRP HTN -controlled - BP 117/80 - BP was in the 140s/90s, may be refractive to pain or fluid overload. - Given 5mg Amlodipine today PRN daily if BP >140. - Continue to monitor Vaginal Spotting -resolved with restarting OCP - Likely withdrawal bleeding from stopping OCPs Headache - Continue 650mg Tylenol Q6 PRN for headache. Elevated LFTs -resolved - AST ALT, Alk Phos wnl - Monospot, CMV IGM negative, and acute hepatitis panel are negative - Continue to monitor CMP Rheumatoid arthritis - MTX held for now, NO NSAIDS. per Nephrology Hypothyroidism - Continue levothyroxine 50mcg - Recommend outpatient follow up DVT Proph: - Lovenox SQ daily, SCDs. Attending Attestation: Pt seen/examined, chart reviewed, care plan d/w PGY 1 Dr. Lei Atkinson. I agree w/ the bean components of his progress note documentation with the following exceptions: none. Pt had emesis yesterday, none today (but was NPO for EGD). Pain is lower abdomen in the midline. Denies upper abd pain. VSS, no fever gen - NAD mouth - MMM heart - RRR, s1, s2 lungs - CTA b/l abd - soft, no HSM, BS+, tender suprapubic region, no flank pain, no peritoneal signs ext - no edema, no signs of active RA labs - Cr 2.7 today; down from 3.5 today A/P: 1. acute abdominal pain - etiology uncertain. Extensive w/u to date nondiagnostic. EGD normal today; await duodenal bx to r/o celiac although TTG and IgA levels normal. In light of recent irregular menses, lower abd pain, etc check GC/Chlamydia & consult pilot safety inspector for their opinion. Pelvic u/s ordered. 2. Acute kidney injury - resolving. ATN? 3. RA - not in exacerbation appreciate GI and nephrology consultations mother updated at bedside Wilbert MUÑOZ MD Continued [facility] stay due to: inadequate oral pain control, multiple IV medications needed Discharge planning: home Resident Tracking Resident Involvement: Resident Care Provided Care Provided: Adult Hospital Medicine
[2016-09-21] MEDS: FALMINA PO SCH (22:19)
[2016-09-22] MEDS: HYDROCODONE/ACETAMOPHEN 5/325MG TAB PO PRN ×2 (00:17→07:54)
[2016-09-22] MEDS: LEVOTHYROXINE 50 MCG TAB PO SCH (05:50)
[2016-09-22 07:17] VITALS: BP 128/86; PULSE 72; TEMP 36.8; O2SAT 93
[2016-09-22 07:25] LABS: BUN/CREATININE RATIO 7.4 (10-20); CALCIUM 9.3 mg/dl (8.5-10.1); CREATININE 1.9 mg/dl (0.60-1.20); POTASSIUM 3.7 mmol/L (3.5-5.1)
[2016-09-22] MEDS: ONDANSETRON INJ 2 MG/ML 2 ML VIAL IV PRN (08:55)
[2016-09-22] MEDS: FERROUS SULFATE 325 MG TAB PO SCH (09:00)
[2016-09-22] MEDS: AMLODIPINE BESYLATE 5 MG TAB PO SCH (09:00)
[2016-09-22] MEDS: CHOLECALCIFEROL 1000 INTER.UNIT TAB PO SCH (09:00)
[2016-09-22 09:08] VITALS: BP 134/92; PULSE 63
[2016-09-22] MEDS: ENOXAPARIN 30 MG/0.3 ML SYR SQ SCH (09:08)
[2016-09-22] MEDS: PANTOprazole SOD 40 MG TAB PO SCH (09:08)
--- NOTE | 2016-09-22 09:09 | Medical Consult ---
Consultation Note Consultation Note OBGYN Consult Ordering doctor: Dr Atkinson Reason for consult: RLQ pain Consulting physician: Dr Malone HPI: Patient is a 20yo G0 who is admitted with abdominal pain and acute renal failure. She notes the pain started last week, that it felt like it started in the RLQ and has now evolved to bilateral abdominal pain. She had diarrheal symptoms last week, and this is theorized to be the reason for her VLAD. Patient denies nausea/vomiting/fever/chills. Her gynecologic history is significant for h/o ovarian cysts in the past, and she is currently on an OCP for control. She was taking this regularly, stopped upon admission to the hospital, had some vaginal bleeding, and this has resolved since she restarted OCP. Denies dysuria and problems with bowels at this time. Patient denies sexual activity over the past 2 years. Denies vaginal discharge. PMH: hypothyroidism, rheumatoid arthritis PSH: tonsils, wrist surgery Meds: synthroid, OCP, vit D3, iron, folic acid, methotrexate Allergies: NKDA Soc: denies T/E/D. [employer] student. Fam: noncontributory ROS: neg except as above Vital Signs Past 12 Hours Date Time Temp Pulse Resp B/P Pulse Ox O2 Delivery O2 Flow Rate FiO2 09/22/16 07:17 36.8 72 15 128/86 93 Room Air 09/21/16 23:45 97 Room Air 09/21/16 23:29 37.0 56 14 126/84 97 Room Air Gen: AAOx3 NAD CV: [id number] L: CTAB Abd: soft, no masses/organomegaly. mild tenderness to palpation bilateral lower abdomen. No rebound/guarding. Pelvic exam: no vaginal discharge. No cervical motion tenderness. No palpable masses. Bladder smooth. Benign exam. Ext: no edema, no calf tenderness Last 24 Hours Test 09/21/16 17:09 09/22/16 06:47 Sodium Level 139 mmol/L Potassium Level 3.7 mmol/L Chloride Level 103 mmol/L Carbon Dioxide Level 24 mmol/L Anion Gap 12.0 mmol/L Blood Urea Nitrogen 14 mg/dl Creatinine 1.90 mg/dl Est Creatinine Clear Calc Drug Dose 41.8 ml/min Estimated GFR () 43.2 Estimated GFR (Non- 37.3 BUN/Creatinine Ratio 7.4 Random Glucose 79 mg/dl Calcium Level 9.3 mg/dl Radiologic Studies: Reviewed CT abdomen/pelvis. There is a small 1.5cm right ovarian cyst, this is likely physiologic. A/P 1. 20yo G0 with abdominal pain Not likely gynecologic etiology. I reviewed the CT abdomen/pelvis, given there are no significant findings on this imaging, the likelihood of finding something different on pelvic ultrasound is unlikely. I cancelled the order for pelvic ultrasound. The small ovarian cyst is not likely the cause of her pain. Pelvic exam is benign and patient is not sexually active - therefore, PID is unlikely. This pain is not a recurring pain monthly with menses, so I think endometriosis is also unlikely. I discussed with patient that she needs to continue taking OCP. She sees a psychology fellow at home in [place] for routine care. Recommend routine followup with sales and service engineer at home when scheduled. Thank you for the consult. BOTTLE ASSEMBLER to sign off.
--- NOTE | 2016-09-22 09:37 | Nephrology Progress Note ---
Nephrology Progress Note Date of Service Sep 22, 2016. Chief Complaint Follow up evaluation of acute kidney injury Subjective Miss Simmons was seen & examined in her hospital room this morning. She complains of nausea and right flank discomfort. Her EGD was negative for inflammation or ulcer. She reports that she underwent gynecologic exam yesterday and everything was "normal". The patient was admitted w/ VLAD. She currently denies fever, gross hematuria, dysuria, angina or dyspnea. She reports brisk urine output. Review of Systems Constitutional: No fever Cardiovascular: No chest pain Respiratory: No dyspnea at rest Abdomen: + nausea, No pain Genitourinary - Female: No dysuria, No gross hematuria Extremities: No leg edema A complete review of systems was performed. Pertinent positives are noted above. All other systems are negative. Vital Signs Last 8 Hrs Date Time Temp Pulse Resp B/P Pulse Ox O2 Delivery O2 Flow Rate FiO2 09/22/16 09:08 63 134/92 09/22/16 07:17 36.8 72 15 128/86 93 Room Air I & O 24-Hour Column 09/22/16 07:59 Intake Total 500 ml Output Total 2650 ml Balance -2150 ml Last Recorded Weight Weight (Kilograms): 71.800 Physical Exam General Appearance: + mild distress (due to nausea and right flank discomfort) Head: normocephalic, atraumatic Eyes: PERRL, EOMI Neck: supple, no adenopathy Respiratory/Chest: lungs clear Cardiovascular: regular rate, rhythm Back: no CVA tenderness (no skin rash) Abdomen/GI: normal bowel sounds, non tender, soft Extremities/Musculoskelatal: no calf tenderness, no pedal edema Neurologic/Psych: alert, oriented x 3 Family History Appendicitis Social History Smokeless Tobacco Use: No Alcohol Use: occasionally Drug Use: none Marital Status: single Occupation: [employer] student Laboratory Results Past 24 Hours 09/22/16 06:47 Test 09/21/16 17:09 09/22/16 06:47 Anion Gap 12.0 mmol/L (3-11) Est Creatinine Clear Calc Drug Dose 41.8 ml/min Estimated GFR () 43.2 Estimated GFR (Non- 37.3 BUN/Creatinine Ratio 7.4 (10-20) Calcium Level 9.3 mg/dl (8.5-10.1) Allergies Coded Allergies: No Known Allergies (Unverified , 09/21/16) Medications Current Inpatient Medications Medications (Trade) Dose Ordered Sig/Sara Route Start Time Stop Time Status Last Admin Dose Admin Al Hydrox/Mg Hydrox/Simethicone (Maalox Max Susp) 15 ml Q4H PRN PO 09/16/16 02:15 10/16/16 02:14 Magnesium Hydroxide (Milk Of Magnesia Susp) 30 ml Q6H PRN PO 09/16/16 02:15 10/16/16 02:14 Ondansetron HCl (Zofran Inj) 4 mg Q6H PRN IV 09/16/16 02:15 10/16/16 02:14 09/22/16 08:55 4 MG Cholecalciferol (Vitamin D Tab) 1,000 inter.unit DAILY PO 09/16/16 09:00 10/16/16 08:59 Ferrous Sulfate (Feosol Tab) 650 mg DAILY PO 09/16/16 09:00 10/16/16 08:59 Folic Acid (Folvite Tab) 1 mg DAILY PO 09/16/16 09:00 10/16/16 08:59 Levothyroxine Sodium (Synthroid Tab) 50 mcg DAILYBB PO 09/16/16 06:00 10/16/16 05:59 09/22/16 05:50 50 MCG Hyoscyamine Sulfate (Levsin Tab) 0.125 mg Q4H PRN PO 09/16/16 11:45 10/16/16 11:44 09/20/16 18:13 0.125 MG Enoxaparin Sodium (Lovenox Inj) 30 mg QAM SQ 09/16/16 13:00 10/16/16 12:59 09/22/16 09:08 30 MG Morphine Sulfate (MoRPHine SULFATE INJ) 3 mg Q4H PRN IV 09/18/16 09:00 10/02/16 08:59 09/18/16 13:11 3 MG Amlodipine Besylate (Norvasc Tab) 5 mg QAM PO 09/19/16 09:00 10/19/16 08:59 09/21/16 14:25 5 MG Acetaminophen (Tylenol Tab) 650 mg Q4H PRN PO 09/18/16 19:30 10/18/16 19:29 09/18/16 20:01 650 MG Acetaminophen/ Hydrocodone Bitart (Crane 5/325 Tab) 1 tab Q6H PRN PO 09/20/16 03:30 10/04/16 03:29 Acetaminophen/ Hydrocodone Bitart (Crane 5/325 Tab) 2 tab Q6H PRN PO 09/20/16 03:30 10/04/16 03:29 09/22/16 07:54 2 TAB Tramadol HCl (Ultram Tab) 50 mg Q4H PRN PO 09/20/16 03:30 10/20/16 03:29 Tramadol HCl (Ultram Tab) 100 mg Q4H PRN PO 09/20/16 03:30 10/20/16 03:29 09/21/16 22:22 100 MG Pantoprazole Sodium (Protonix Tab) 40 mg QAM PO 09/21/16 09:00 10/21/16 08:59 09/22/16 09:08 40 MG Non-Formulary Medication (Non-Formulary Patient'S Own Med) 1 ea DAILY@2200 PO 09/20/16 22:00 10/20/16 21:59 09/21/16 22:19 1 EA Impression (1) VLAD (acute kidney injury) (2) Rheumatoid arthritis (3) Mesenteric adenitis (4) Nausea and vomiting 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 She has rheumatoid arthritis and is on chronic methotrexate therapy. Baseline creatinine was 0.8. Abdominal CT w/ contrast revealed mesenteric adenitis. Patient was treated w/ IV Toradol and placed on OTC NSAIDS. She remained relatively anorectic and became dehydrated. She returned 3 days later w/ persistent abdominal pain and VLAD. Creatinine had risen to 4.0. Urinalysis w/ microscopy initially showed microscopic hematuria (few RBC's /hpf) and hyaline casts. Repeat UA/micro bland and acellular. Renal US was negative for obstruction or mass. Clinical presentation was c/w ATN or possibly AIN. Kidney function has begun to improve w/ conservative therapy Blood pressure appropriate after stopping IVF and starting amlodipine. PMH: autoimmune thyroiditis, hypothyroidism and RA treated w/ MTX. Recommendations ACUTE KIDNEY INJURY: -- ATN due to dehydration, IV contrast, NSAID use -- Urine sediment is now acellular -- Patient is in recovery phase -- Volume status and electrolyte balance remain acceptable. Continue to monitor PRP -- IgG4 is within acceptable limits -- Awaiting FRANCESCA, ANCA results (pending as of 09/22/16) -- Continue to avoid NSAIDS and hold methotrexate HYPERTENSION: -- Blood pressure is acceptable -- Will discontinue amlodipine therapy ABDOMINAL DISCOMFORT: -- EGD results reviewed. No gastritis or ulcer. -- Question need for colonoscopy -- Patient underwent [employer]OE REPAIRER HELPER evaluation. Await their recommendations RHEUMATOID ARTHRITIS: -- Hold methotrexate until kidney function has recovered
--- NOTE | 2016-09-22 12:55 | DIAGNOSTIC IMAGING REPORT ---
KUB HISTORY: Generalized abdominal pain. ?bowel obstruction COMPARISON: Abdomen and pelvis CT 09/17/2016. FINDINGS: The bowel gas pattern is unremarkable. There are no dilated loops of small bowel to suggest an obstruction. No renal calculi. No ureteral calculi. No pneumoperitoneum or pneumatosis. IMPRESSION: No dilated loops of bowel to suggest an obstruction. Electronically signed by: Azam Sotomayor M.D. 09/22/2016 12:54 PM Dictated Date/Time: 09/22/2016 12:53 PM
--- NOTE | 2016-09-22 13:52 | Family Medicine Progress Note ---
Progress Note Date of Service Sep 22, 2016. Subjective Pt evaluation today including: conversation w/ patient, physical exam, chart review, lab review, review of studies, review of inpatient medication list Pain: 5/10 suprapubic pain, RLQ abdominal pain, Rt Lateral back pack pain PO Intake: adequate Voiding: no voiding problems Pt continues to report abdominal pain, primarily in the suprapubic, RLQ regions in addition 3 day Hx of Rt lateral lower back pain. also reports N/V with meals. denies fevers/ chills, change in stool. Constitutional: No chills, No fever Respiratory: No cough, No shortness of breath, No sputum Cardiovascular: No chest pain, No edema, No palpitations Abdomen: + nausea, + pain (suprapubic, RLQ), No constipation, No diarrhea, No vomiting Female : No dysuria, No urinary frequency Skin: No itch, No rash Medications Current Inpatient Medications Medications (Trade) Dose Ordered Sig/Sara Route Start Time Stop Time Status Last Admin Dose Admin Al Hydrox/Mg Hydrox/Simethicone (Maalox Max Susp) 15 ml Q4H PRN PO 09/16/16 02:15 10/16/16 02:14 Magnesium Hydroxide (Milk Of Magnesia Susp) 30 ml Q6H PRN PO 09/16/16 02:15 10/16/16 02:14 Ondansetron HCl (Zofran Inj) 4 mg Q6H PRN IV 09/16/16 02:15 10/16/16 02:14 09/22/16 08:55 4 MG Cholecalciferol (Vitamin D Tab) 1,000 inter.unit DAILY PO 09/16/16 09:00 10/16/16 08:59 Ferrous Sulfate (Feosol Tab) 650 mg DAILY PO 09/16/16 09:00 10/16/16 08:59 Folic Acid (Folvite Tab) 1 mg DAILY PO 09/16/16 09:00 10/16/16 08:59 Levothyroxine Sodium (Synthroid Tab) 50 mcg DAILYBB PO 09/16/16 06:00 10/16/16 05:59 09/22/16 05:50 50 MCG Hyoscyamine Sulfate (Levsin Tab) 0.125 mg Q4H PRN PO 09/16/16 11:45 10/16/16 11:44 09/20/16 18:13 0.125 MG Enoxaparin Sodium (Lovenox Inj) 30 mg QAM SQ 09/16/16 13:00 10/16/16 12:59 09/22/16 09:08 30 MG Acetaminophen (Tylenol Tab) 650 mg Q4H PRN PO 09/18/16 19:30 10/18/16 19:29 09/18/16 20:01 650 MG Tramadol HCl (Ultram Tab) 50 mg Q4H PRN PO 09/20/16 03:30 10/20/16 03:29 Pantoprazole Sodium (Protonix Tab) 40 mg QAM PO 09/21/16 09:00 10/21/16 08:59 09/22/16 09:08 40 MG Non-Formulary Medication (Non-Formulary Patient'S Own Med) 1 ea DAILY@2200 PO 09/20/16 22:00 10/20/16 21:59 09/21/16 22:19 1 EA Objective Vital Signs Date Time Temp Pulse Resp B/P Pulse Ox O2 Delivery O2 Flow Rate FiO2 09/22/16 15:30 Room Air 09/22/16 14:50 36.5 55 16 119/85 100 Room Air 09/22/16 09:08 63 134/92 09/22/16 07:45 Room Air 93 09/22/16 07:17 36.8 72 15 128/86 93 Room Air 09/21/16 23:45 97 Room Air 09/21/16 23:29 37.0 56 14 126/84 97 Room Air Physical Exam General Appearance: WD/WN, no apparent distress Eyes: normal inspection, PERRL Neck: supple, no adenopathy, trachea midline Respiratory/Chest: chest non-tender, lungs clear, normal breath sounds Cardiovascular: regular rate, rhythm, no edema, no murmur Abdomen: normal bowel sounds, soft, no organomegaly, + tenderness (suprapubic) , + pertinent finding (no guarding, no rebound tenderness) Extremities: no pedal edema, no calf tenderness Neurologic/Psychiatric: alert, normal mood/affect, oriented x 3 Skin: normal color, warm/dry, no rash Laboratory Results Results Past 24 Hours Test 09/22/16 06:47 Range/Units Sodium Level 139 136-145 mmol/L Potassium Level 3.7 3.5-5.1 mmol/L Chloride Level 103 98-107 mmol/L Carbon Dioxide Level 24 21-32 mmol/L Anion Gap 12.0 3-11 mmol/L Blood Urea Nitrogen 14 7-18 mg/dl Creatinine 1.90 0.60-1.20 mg/dl Est Creatinine Clear Calc Drug Dose 41.8 ml/min Estimated GFR () 43.2 Estimated GFR (Non- 37.3 BUN/Creatinine Ratio 7.4 10-20 Random Glucose 79 70-99 mg/dl Calcium Level 9.3 8.5-10.1 mg/dl Assessment and Plan 20 yo F w. PMhx Of RA ( on MTX at home) and hx of ovarian cyst (dx age 15) p/w RLQ abdominal pain, recurrent N/V of , s/p Abdominal/Pelvic CT, Gallbladder U/S , HIDA Scan showing, EGD all showing no clear etiology of abdominal pain Abdominal pain - diffuse lower abdominal pain, worse in RLQ, some improvement from admission - etiology unknown following thorough GI workup, - EGD (09/21) was normal, awaiting biopsy but mucosa appeared normal - Considering GI causes: IBS, Medication-induced (Opiate) vs. Abdominal Migraine -Per LOGISTICS LEAD consult; unlikely based on exam findings, CT Abdomen/Pelvis to be gynecological etiology. KUB (09/22): No dilated loops of bowel to suggest an obstruction - Pending IgA and TTGT antibodies. - Continue Protonix PO 40mg daily. - Continue with Zofran PRN for nausea. - Continue Hyoscyamine. -D/C Morphine 3mg Q4 PRN. Started Sumatriptan today for relief of potential abdominal migraine. Will reassess in the morning. GI Recommends: Oral, IV Hydration as needed, slowly advancing diet as tolerated. eliminating potential nausea-inducing medications including Tramadol , Iron Susp VLAD - likely Multifactorial ATN (methotrexate, NSAIDs and IV contrast) per nephrology - Creatinine trending down, 1.9<--2.7 <--3.5<--4<--3.8<--3.6 - MTX remains held for nephrotoxicity - F/U ANCA, FRANCESCA and IGG labs. - Continue to monitor PRP HTN -controlled - BP 128/86 -Continue to monitor Vaginal Spotting -resolved with restarting OCP - Likely withdrawal bleeding from stopping OCPs Headache - D/C'd Tylenol Q6 PRN -Started Sumatriptan for potential migraines concurrently with potential abdominal migraine. -Reassess in AM Elevated LFTs -resolved - AST ALT, Alk Phos WNL - Monospot, CMV IGM negative, and acute hepatitis panel are negative - Continue to monitor CMP Rheumatoid arthritis - MTX held for now, NO NSAIDS. per Nephrology Hypothyroidism - Continue levothyroxine 50mcg - Recommend outpatient follow up DVT Proph: - Lovenox SQ daily, SCDs. Resident Physician Supervision Note: I was present with PGY1 Dr. Lei Atkinson during the history and exam. I discussed the case with the resident and agree with the findings and plan as documented in the note. Any exceptions or clarifications are listed here: none. Pt continues with mild abd pain; today it is suprapubic region. Tolerating limited amount of diet. Has mild headache; mother has migraines. VSS, afebrile gen - nad neuro - strength 5/5 x 4 exts abd - soft, mildly tender suprapubic region, BS+, no HSM A/P: abdominal pain - extensive work-up to date negative for specific etiology. EGD was normal; bx of duodenum to exclude celiac pending. strong family h/o migraines - could her symptoms be from abdominal migraine?? try imitrex with zofran today mother updated at bedside today Documented By: Erik Goodwin MD Continued [facility] stay due to: inadequate oral pain control Discharge planning: home Resident Tracking Resident Involvement: Resident Care Provided Care Provided: Adult Hospital Medicine
[2016-09-22 14:50] VITALS: BP 119/85; PULSE 55; TEMP 36.5; O2SAT 100
--- NOTE | 2016-09-22 16:03 | GASTROENTEROLOGY PROGRESS NOTE ---
DATE: 09/22/2016 HISTORY OF PRESENT ILLNESS: The patient reports abdominal discomfort that is mostly periumbilical in nature. This originally was more right lower quadrant by her description. Historically, the patient prior to the acute onset that had awakened her from sleep and required presentation to the Emergency Room, had experienced a gastrointestinal virus with diarrhea approximately 1-2 weeks prior to be on this acute attack. Since hospitalization, the patient has had problems with nausea. She underwent upper endoscopy yesterday with the biopsies that are currently pending. The patient is using Zofran for her nausea. A gallbladder study was unusual although with morphine, eventual filling of the gallbladder occurred. However, chronic cholecystitis could not be excluded. The location of the patient's symptoms by her description had never been above the level of the umbilicus or only rarely so. CT imaging suggested no acute abdominal processes and the patient reports she was seen by gynecology yesterday with no additional recommendations. Her vital signs today are afebrile at 36.8, blood pressure 128/86, and room air 93%. REVIEW OF SYSTEMS: Otherwise noncontributory except based on 14-point exam. The patient does currently not have vomiting and although taking oral food and mostly liquids, she still has symptoms of nausea. She, however, has no return of diarrhea that she had prior to the onset of the acute abdominal pain. ALLERGIES: She has no known drug allergies. MEDICATIONS: Include pantoprazole, tramadol, acetaminophen, Lovenox, Levsin, iron, levothyroxine, magnesium oxide, and Zofran. PHYSICAL EXAMINATION: GENERAL: The patient is awake, alert and oriented x3, resting comfortably in bed. HEART: Normal S1 and S2. LUNGS: Clear to auscultation. ABDOMEN: Soft. Tender around the periumbilical region, mostly below the level of the umbilicus and either midline or just slightly to the right or left. Distinct right lower quadrant tenderness is not identified on today's exam nor did she have right upper quadrant tenderness. EXTREMITIES: Without clubbing, cyanosis or edema. RECTAL: Deferred. LABORATORY AND IMAGING DATA: I reviewed the available laboratory studies from yesterday that include a normal white count 7.0, hemoglobin 13.8, and MCV of 86. Urinalysis on admission showed trace occult blood with 5-10 red blood cells, but the urine epithelial cells were also noted. However, she did have more blood present by dipstick on September 18. Electrolytes are normal and BUN and creatinine, which had become elevated between her ER visit on Wednesday and a couple of days later when she returned to the Emergency Room as high as 4 is now down to 1.9. She was taking ibuprofen 200 mg 3 times daily for the pain. The source of the patient's pain is unclear. It does not appear that there are no clear abnormal findings on imaging. The HIDA scan, although questionable did eventually show filling and except for mild pericholecystic edema with focal wall thickening of the gallbladder, there were no stones or ductal dilation identified. ASSESSMENT AND PLAN: I made the following recommendations. We would continue oral and IV hydration as needed with antinauseants and to slowly advance the diet as tolerated. There are several medications in her medication list that may be contributing, in part, to her nausea that include tramadol, iron supplement. If these can be eliminated, this may reduce her nausea features and Zofran requirement. The duodenal biopsies are pending at this time and further recommendations will follow once these are available. The patient was encouraged to ambulate in the hallway. All questions answered. MTDD
[2016-09-22] MEDS ORDERED: SUMATRIPTAN SUCCINATE 25 MG TAB PO ONE (18:15)
[2016-09-22] MEDS ORDERED: ONDANSETRON INJ 8 MG in DEXTROSE 5% 50ML 50 ML IV ONE (18:45)
[2016-09-22] MEDS: FALMINA PO SCH (21:23)
[2016-09-22 23:51] VITALS: BP 122/85; PULSE 61; TEMP 36.6; O2SAT 98
[2016-09-23] MEDS: ACETAMINOPHEN 325 MG TAB PO PRN (00:07)
[2016-09-23] MEDS: LEVOTHYROXINE 50 MCG TAB PO SCH (05:34)
[2016-09-23 07:13] VITALS: BP 121/86; PULSE 61; TEMP 36.8; O2SAT 98
[2016-09-23 08:06] LABS: HEMATOCRIT 40.1 % (37-47); MEAN CELL VOLUME 83.9 fL (80-100); MEAN CORPUSCULAR HEMOGLOBIN 29.9 pg (25-34); MEAN CORPUSCULAR HGB CONC 35.7 g/dl (32-36); PLATELET COUNT 384 K/uL (130-400); RED BLOOD COUNT 4.78 M/uL (4.2-5.4); WHITE BLOOD COUNT 7.23 K/uL (4.8-10.8)
[2016-09-23 08:20] VITALS: O2SAT 98
[2016-09-23 08:35] LABS: BUN/CREATININE RATIO 7.8 (10-20); CALCIUM 9.8 mg/dl (8.5-10.1); CREATININE 1.7 mg/dl (0.60-1.20); POTASSIUM 3.7 mmol/L (3.5-5.1)
[2016-09-23] MEDS: FERROUS SULFATE 325 MG TAB PO SCH (09:00)
[2016-09-23] MEDS ORDERED: ENOXAPARIN 40 MG/0.4 ML SYR SQ SCH (09:00)
[2016-09-23] MEDS: CHOLECALCIFEROL 1000 INTER.UNIT TAB PO SCH (09:00)
[2016-09-23] MEDS: PANTOprazole SOD 40 MG TAB PO SCH (09:19)
--- NOTE | 2016-09-23 09:49 | Nephrology Progress Note ---
Nephrology Progress Note Date of Service Sep 23, 2016. Chief Complaint Follow up evaluation of acute kidney injury Subjective Miss Simmons was seen & examined in her hospital room this morning. She complains of persistent infraumbilical abdominal discomfort. She describes this as a constant sharp pain without radiation. She rates it a "3 - 4" on a scale of one to ten. Her EGD was negative for inflammation or ulcer. Biopsy was negative for inflammation. The patient underwent gynecologic exam 09/21 - cultures are pending. The patient was admitted w/ VLAD. She currently denies fever, gross hematuria, dysuria, angina or dyspnea. She reports brisk urine output. Review of Systems Constitutional: No fever ENT: No sore throat Cardiovascular: No chest pain Respiratory: No dyspnea at rest Abdomen: + pain, No nausea, No vomiting Genitourinary - Female: No dysuria, No gross hematuria Extremities: No leg edema A complete review of systems was performed. Pertinent positives are noted above. All other systems are negative. Vital Signs Last 8 Hrs Date Time Temp Pulse Resp B/P Pulse Ox O2 Delivery O2 Flow Rate FiO2 09/23/16 07:13 36.8 61 20 121/86 98 Room Air I & O 24-Hour Column 09/23/16 08:00 Intake Total 1180 ml Output Total 2875 ml Balance -1695 ml Last Recorded Weight Weight (Kilograms): 71.800 Physical Exam General Appearance: WD/WN, no apparent distress Head: normocephalic, atraumatic Eyes: PERRL, EOMI Neck: no adenopathy Respiratory/Chest: lungs clear Cardiovascular: regular rate, rhythm Back: no CVA tenderness Abdomen/GI: normal bowel sounds, soft, + tenderness (mildly tender in the periumbilical region. No rebound or guarding. No skin rash or bruising) Extremities/Musculoskelatal: no calf tenderness, no pedal edema Neurologic/Psych: alert, oriented x 3 Family History Appendicitis Social History Smokeless Tobacco Use: No Alcohol Use: occasionally Drug Use: none Marital Status: single Occupation: [employer] student Laboratory Results Past 24 Hours 09/23/16 07:50 09/23/16 07:50 Test 09/23/16 07:50 Red Blood Count 4.78 M/uL (4.2-5.4) Mean Corpuscular Volume 83.9 fL (80-100) Mean Corpuscular Hemoglobin 29.9 pg (25-34) Mean Corpuscular Hemoglobin Concent 35.7 g/dl (32-36) RDW Standard Deviation 38.0 fL (36.4-46.3) RDW Coefficient of Variation 12.5 % (11.5-14.5) Mean Platelet Volume 9.0 fL (7.4-10.4) Anion Gap 11.0 mmol/L (3-11) Est Creatinine Clear Calc Drug Dose 46.7 ml/min Estimated GFR () 49.4 Estimated GFR (Non- 42.7 BUN/Creatinine Ratio 7.8 (10-20) Calcium Level 9.8 mg/dl (8.5-10.1) Allergies Coded Allergies: No Known Allergies (Unverified , 09/21/16) Medications Current Inpatient Medications Medications (Trade) Dose Ordered Sig/Sara Route Start Time Stop Time Status Last Admin Dose Admin Al Hydrox/Mg Hydrox/Simethicone (Maalox Max Susp) 15 ml Q4H PRN PO 09/16/16 02:15 10/16/16 02:14 Magnesium Hydroxide (Milk Of Magnesia Susp) 30 ml Q6H PRN PO 09/16/16 02:15 10/16/16 02:14 Ondansetron HCl (Zofran Inj) 4 mg Q6H PRN IV 09/16/16 02:15 10/16/16 02:14 09/22/16 08:55 4 MG Cholecalciferol (Vitamin D Tab) 1,000 inter.unit DAILY PO 09/16/16 09:00 10/16/16 08:59 Ferrous Sulfate (Feosol Tab) 650 mg DAILY PO 09/16/16 09:00 10/16/16 08:59 Folic Acid (Folvite Tab) 1 mg DAILY PO 09/16/16 09:00 10/16/16 08:59 Levothyroxine Sodium (Synthroid Tab) 50 mcg DAILYBB PO 09/16/16 06:00 10/16/16 05:59 09/23/16 05:34 50 MCG Hyoscyamine Sulfate (Levsin Tab) 0.125 mg Q4H PRN PO 09/16/16 11:45 10/16/16 11:44 09/20/16 18:13 0.125 MG Acetaminophen (Tylenol Tab) 650 mg Q4H PRN PO 09/18/16 19:30 10/18/16 19:29 09/23/16 00:07 650 MG Tramadol HCl (Ultram Tab) 50 mg Q4H PRN PO 09/20/16 03:30 10/20/16 03:29 09/22/16 21:23 50 MG Pantoprazole Sodium (Protonix Tab) 40 mg QAM PO 09/21/16 09:00 10/21/16 08:59 09/23/16 09:19 40 MG Non-Formulary Medication (Non-Formulary Patient'S Own Med) 1 ea DAILY@2200 PO 09/20/16 22:00 10/20/16 21:59 09/22/16 21:23 1 EA Enoxaparin Sodium (Lovenox Inj) 40 mg DAILY SQ 09/23/16 09:00 10/23/16 08:59 09/23/16 09:20 40 MG Impression (1) VLAD (acute kidney injury) (2) Rheumatoid arthritis (3) Mesenteric adenitis (4) Nausea and vomiting 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 She has rheumatoid arthritis and is on chronic methotrexate therapy. Baseline creatinine was 0.8. Abdominal CT w/ contrast revealed mesenteric adenitis. Patient was treated w/ IV Toradol and placed on OTC NSAIDS. She remained relatively anorectic and became dehydrated. She returned 3 days later w/ persistent abdominal pain and VLAD. Creatinine had risen to 4.0. Urinalysis w/ microscopy initially showed microscopic hematuria (few RBC's /hpf) and hyaline casts. Repeat UA/micro bland and acellular. Renal US was negative for obstruction or mass. Clinical presentation was c/w ATN or possibly AIN. Kidney function has begun to improve w/ conservative therapy PMH: autoimmune thyroiditis, hypothyroidism and RA treated w/ MTX. Recommendations ACUTE KIDNEY INJURY: -- ATN due to dehydration, IV contrast, NSAID use -- Urine sediment is now acellular -- Patient is in recovery phase -- Volume status and electrolyte balance remain acceptable. Continue to monitor PRP -- IgG4 is within acceptable limits -- Awaiting FRANCESCA, ANCA results (pending as of 09/23/16 am) -- Continue to avoid NSAIDS and hold methotrexate HYPERTENSION: -- Blood pressure is acceptable -- Amlodipine therapy has been stopped ABDOMINAL DISCOMFORT: -- EGD results reviewed. No gastritis or ulcer. -- Question need for colonoscopy -- Question whether symptoms could represent endometriosis. Patient underwent BELT CHANGER evaluation. Await their recommendations RHEUMATOID ARTHRITIS: -- Hold methotrexate until kidney function has recovered
[2016-09-23] MEDS ORDERED: SUMA25TA12 PO (11:04)
--- NOTE | 2016-09-23 11:17 | Discharge Instructions ---
Discharge Instructions Admission Reason for Admission: Abdominal Pain, Acute Kidney Failure (Lei Atkinson MD) Discharge Discharge Diagnosis / Problem: Non-specified Abdominal Pain (Lei Atkinson MD) Discharge Goals Goal(s): Decrease discomfort, Improve function, Increase independence, Improve disease control, Improve nutritional status, Learn about illness, Diagnostic testing, Therapeutic intervention, Screening, Prevent Disease Progression, Specific goals (Lei Atkinson MD) Activity Recommendations Activity Limitations: per Instructions/Follow-up section Lifting Limitations: none Exercise/Sports Limitations: none Shower/Bathe: no limitations Driving or Machine Use: no limitations . (Lei Atkinson MD) Instructions / Follow-Up Instructions / Follow-Up You came into the hospital for abdominal pain, nausea, vomiting, and kidney dysfunction. -Please take medication as prescribed -Please Followup with Dr. Lei Atkinson on 09/30/16 at [address] for ongoing care, review of pathology and lab results (Lei Atkinson MD) Current Hospital Diet Patient's current hospital diet: Regular Diet (Lei Atkinson MD) Discharge Diet Recommended Diet: Regular Diet (Lei Atkinson MD) Pending Studies Studies pending at discharge: yes List of pending studies: FRANCESCA, ANCA, G/C (Lei Atkinson MD) Medical Emergencies . Who to Call and When: Medical Emergencies: If at any time you feel your situation is an emergency, please call 911 immediately. . (Lei Atkinson MD) Non-Emergent Contact Non-Emergency issues call your: Primary Care Provider Call Non-Emergent contact if: you have a fever, your pain is not controlled, your pain is worsening, your pain is unusual for you, your pain is concerning you, you have any medication questions . (Lei Atkinson MD) . "Provider Documentation" section prepared by Lei Atkinson. (Lei Atkinson MD) Attending Attestation: Pt seen & examined with PGY1 Dr. Lei Atkinson on the day of discharge and I agree with his discharge instructions as outlined. Erik Goodwin MD (Erik Goodwin MD) VTE Core Measure Inpt VTE Proph given/why not?: SCD's (Lei Atkinson MD) Resident Tracking Resident Involvement: Resident Care Provided Care Provided: Adult Hospital Medicine (Lei Atkinson MD)
[2016-09-23] MEDS ORDERED: ONDANSETRON HOME PACK 4MG OD TAB PO ONE (11:45)
[2016-09-23] MEDS ORDERED: ONDA8TAB62 SL (11:49)
--- NOTE | 2016-09-23 11:51 | Discharge Summary ---
Discharge Summary Admission Date: Sep 16, 2016 at 02:25 Discharge Date: Sep 23, 2016 Discharge Disposition: Home Principal Diagnosis: Abdominal pain unspecified, Acute Kidney Injury Medication Reconciliation New Medications: Ondansetron Odt (Zofran Odt) 8 Mg Soltab 8 MG SL Q6H PRN for Nausea, #15 TAB 0 Refills Sumatriptan Succinate (Imitrex) 25 Mg Tab 25 MG PO PRN for Migraine, #10 TAB Continued Medications: Control Pills ( Control Pills) Tab 1 TAB PO DAILY, TAB Cholecalciferol (Vitamin D3) 1,000 Unit Tab 1 TAB PO DAILY for 90 Days, #90 TAB 3 Refills Folic Acid (Folvite) 1 Mg Tab 1 MG PO DAILY, TAB Levothyroxine Sodium (Levothyroxine Sodium) 50 Mcg Tab 50 MCG PO DAILY for 90 Days, #90 TAB 3 Refills Methotrexate Sodium (Methotrexate) 2.5 Mg Tab 6 TAB PO WK for SATURDAYS for 28 Days, #24 TAB 1 Refill Discontinued Medications: Ferrous Sulfate (Ferrous Sulfate) 325 Mg Tab 650 MG PO DAILY Referrals At Discharge Follow up Referrals: Quantometer Operator Referral - Within 1-2 Weeks with Hi Wilkinson M.D. Discharge Exam Review of Systems: Constitutional: No chills, No fever Respiratory: No cough, No shortness of breath Cardiovascular: No chest pain, No palpitations Abdomen: + nausea, + pain, No constipation, No diarrhea, No vomiting Genitourinary - Female: No dysuria, No urinary frequency, No urinary urgency Psychiatric: No anxiety, No depression symptoms Integumentary: No rash Physical Exam: General Appearance: WD/WN, no apparent distress Eyes: PERRL, EOMI ENT: hearing grossly normal, pharynx normal Neck: supple, no adenopathy, trachea midline Respiratory/Chest: chest non-tender, lungs clear, normal breath sounds Cardiovascular: regular rate, rhythm, no edema, no murmur Abdomen / GI: normal bowel sounds, soft, no organomegaly, + pertinent finding (mild suprapubic tenderness) Extremities: no calf tenderness, no pedal edema Neurologic/Psychiatric: alert, normal mood/affect, oriented x 3 Skin: normal color, warm/dry, no rash Hospital Course This is a 20 yo F w/ hx RA on Methotrexate at home x 6mos, who presented to ED with sharp episodic RUQ abdominal pain, N/V. She had recently been to the ED three days prior for abdominal pain and it was attributed to mesenteric adenitis based on Ct scan. She was given Toradol and discharged home. IN the current hospital encounter, She was admitted with worsening abdominal pain and VLAD and abnormal LFTs' including ALT of 125. Abdominal pain Gastroenterology was consulted. Patient was given morphine for pain, zofran for n/v. Repeat CT Abdo and Pelvis revealed mild pericholecystic edema, small amount of free pelvic fluid and a non obstructing right renal calculus. Abdo US on 09/18/16 showed an area of 9mm thickening in the gallbladder u/s and HIDA scan was grossly normal with delayed visualization of the gallbladder possibly indicating chronic cholecystitis or gallbladder dysfunction, but per GI, this was unlikely to be etiology of her presentation. Subsequent KUB ruled out renal calculi and bowel obstruction. EGD and Bx were normal.PRESENTATION SPECIALIST was also consulted for input but determined that it was unlikely PRESENTATION SPECIALIST etiology based on presentation , exam. Abdominal pain eventually subsided during hospital stay. Patient was given Sumatriptan in the event of abdominal migraine as an etiology. Patient clinically improved and was discharged with outpatient followup VLAD Nephrology was consulted. VLAD was considered to be multifactorial ATN secondary MTX, NSAIDs, IV contrast. Methotrexate was held during hospital stay. On arrival Cr was 3,1, increased to as much as 4. By discharge Cr had trended down and she was discharged with outpatient followup with repeat labs. MTX was restarted at discharge. This includes examination of the patient, discharge planning, medication reconciliation, and communication with other providers. Discharge Instructions Please refer to the electronic Patient Visit Report (Discharge Instructions) for additional information.
[2016-09-23 12:44] VITALS: BP 121/86; PULSE 61; TEMP 36.8; O2SAT 98
[2016-09-23 14:32] LABS: MYELOPEROXIDASE AB <1.0 AI (<1.0)
[2016-09-23 21:57] LABS: CHLAMYDIA TRACH RNA*** NOT DETECTED (NOT DETECTED); GC (NEIS GONORRHOEAE)RNA** NOT DETECTED (NOT DETECTED)
== END 2016-09-23 13:10 | disposition home or self-care (01) | DRG 683 ==
LOC: ENRESERVDT → ENRESERVTM → C.EDB 00:42 → C.MSN 02:25
PROVIDERS: ADMIT Student in an Organized Health Care Education/Training Program; ATTEND Internal Medicine
PROC: 0DB98ZX Excision of Duodenum, Via Natural or Artificial Opening Endoscopic, Diagnostic (ICD-10-PCS; principal; 2016-09-21 12:30)
DX: N17.0 Acute kidney failure with tubular necrosis (principal); J90 Pleural effusion, not elsewhere classified; M06.9 Rheumatoid arthritis, unspecified; I88.0 Nonspecific mesenteric lymphadenitis; E86.0 Dehydration; I10 Essential (primary) hypertension; A08.4 Viral intestinal infection, unspecified; R11.2 Nausea with vomiting, unspecified; R31.29 Other microscopic hematuria; R80.9 Proteinuria, unspecified; E03.9 Hypothyroidism, unspecified; N83.201 Unspecified ovarian cyst, right side; N20.0 Calculus of kidney; R51 Headache; R63.0 Anorexia; N92.6 Irregular menstruation, unspecified; K58.9 Irritable bowel syndrome, unspecified

== ENCOUNTER → 2016-09-28 | Outpatient (CLI) | payer OTHER ==
[~2016-09-28] MED LIST changes: +CHOL1000 PO; -FERR325T5 PO; +ONDA8TAB62 SL; +SUMA25TA12 PO
[2016-09-28 15:59] LABS: BLOOD UREA NITROGEN 10 mg/dl (7-18); BUN/CREATININE RATIO 9.2 (10-20); CALCIUM 9.3 mg/dl (8.5-10.1); CARBON DIOXIDE 23 mmol/L (21-32); CHLORIDE 105 mmol/L (98-107); GLUCOSE 109 mg/dl (70-99); POTASSIUM 3.8 mmol/L (3.5-5.1); SODIUM 139 mmol/L (136-145)
== END | disposition home or self-care (01) ==
LOC: C.LAB1850 14:07
PROVIDERS: ATTEND Family Medicine
DX: N17.9 Acute kidney failure, unspecified (principal)

== ENCOUNTER 2017-09-05 16:34 | Emergency (ER) | payer OTHER ==
[~2017-09-05] VITALS: Ht 152.4 cm; Wt 80.0 kg
[~2017-09-05 16:34] MED LIST changes: -BCPILLS PO; -FOLI1TAB7 PO; +FOLI1TAB8 PO; -SUMA25TA12 PO
[2017-09-05 16:55] VITALS: TEMP 36.9; Ht 152.4 cm; Wt 80.0 kg
[2017-09-05] MEDS ORDERED: SODIUM CHLORIDE 0.9% 1000ML 1,000 ML IV STA (17:11)
[2017-09-05] MEDS ORDERED: BCPILLS PO (17:15)
[2017-09-05] MEDS ORDERED: LEVO75TA5 PO (17:26)
[2017-09-05] MEDS ORDERED: CHOLCAP5 PO (17:26)
[2017-09-05 19:12] LABS: BASO % 0.1 %; BASO ABS # 0.01 K/uL (0-0.2); EOS % 0.4 %; EOS ABS # 0.03 K/uL (0-0.5); HEMATOCRIT 40.9 % (37-47); IG# 0.02 K/uL (0.00-0.02); LYMPH % 29.2 %; LYMPH ABS # 2.17 K/uL (1.2-3.4); MEAN CELL VOLUME 84.7 fL (80-100); MEAN CORPUSCULAR HGB CONC 34.2 g/dl (32-36); MEAN PLATELET VOLUME 8.6 fL (7.4-10.4); MONO % 5.1 %; MONO ABS # 0.38 K/uL (0.11-0.59); NEUT % 64.9 %; NEUT ABS # 4.81 K/uL (1.4-6.5); PLATELET COUNT 315 K/uL (130-400); RED CELL DISTRIBUTION WIDTH CV 13.3 % (11.5-14.5); RED CELL DISTRIBUTION WIDTH SD 40.5 fL (36.4-46.3); WHITE BLOOD COUNT 7.42 K/uL (4.8-10.8)
[2017-09-05 19:30] LABS: ALBUMIN 3.5 gm/dl (3.4-5.0); ALT/SGPT 24 U/L (12-78); BLOOD UREA NITROGEN 10 mg/dl (7-18); CALCIUM 9.5 mg/dl (8.5-10.1); CARBON DIOXIDE 23 mmol/L (21-32); CREATININE 0.77 mg/dl (0.60-1.20); GLUCOSE 87 mg/dl (70-99); LIPASE 174 U/L (73-393); SODIUM 138 mmol/L (136-145)
[2017-09-05 19:33] LABS: ALKALINE PHOSPHATASE 46 U/L (45-117); AST/SGOT 15 U/L (15-37); TOTAL PROTEIN 7.7 gm/dl (6.4-8.2)
--- NOTE | 2017-09-05 19:48 | DIAGNOSTIC IMAGING REPORT ---
RENAL ULTRASOUND HISTORY: left back pain eval for stone/hydro COMPARISON: KUB 09/22/2016. Abdomen and pelvis CT 09/17/2016. FINDINGS: Right kidney: 10.5 cm. No hydronephrosis. Normal corticomedullary differentiation and cortical thickness. Left kidney: 10.5 cm. No hydronephrosis. Normal corticomedullary differentiation and cortical thickness. Bladder: No bladder wall thickening. The bilateral ureteral jets were identified. IMPRESSION: Normal renal ultrasound. Electronically signed by: Azam Sotomayor M.D. 09/05/2017 7:47 PM Dictated Date/Time: 09/05/2017 7:47 PM
[2017-09-05] MEDS ORDERED: KETOROLAC TROMETHAMINE 30 MG/ML VIAL IV STA (19:58)
--- NOTE | 2017-09-05 20:34 | DIAGNOSTIC IMAGING REPORT ---
LUMBAR SPINE 5 VIEWS HISTORY: Low back pain. COMPARISON: None. FINDINGS: There is no fracture. No subluxation. Disc spaces are preserved. S1 is demonstrated to be a transitional vertebra. IMPRESSION: No fracture or subluxation within the lumbar spine. Electronically signed by: Azam Sotomayor M.D. 09/05/2017 8:33 PM Dictated Date/Time: 09/05/2017 8:30 PM
[2017-09-05] MEDS ORDERED: TRAM-10 PO (21:05)
[2017-09-05] MEDS ORDERED: TRAMADOL HCL 50 MG HOME PACK PO ONE (21:15)
[2017-09-05 21:39] VITALS: BP 149/98; PULSE 89; O2SAT 98
--- NOTE | 2017-09-05 23:06 | EMERGENCY ROOM VISIT NOTE ---
History Report prepared by Eldon: Jose Pope Under the Supervision of: Dr. En Jauregui M.D. First contact with patient: 16:59 Chief Complaint: FLANK PAIN Stated Complaint: SHARP LOWER LEFT BACK PAIN History of Present Illness The patient is a 21 year old female who presents to the Emergency Room with complaints of intermittent sharp, left lower back pain since September 03, 2017. She describes it as one sharp pain every 10 seconds, which lasts for briefly. She notes that she was walking this morning and the pain seemed to worsen. She states that she feels hot and nauseous. She denies any diarrhea or vomiting. She notes a history of kidney failure in September 2016 and was diagnosed with mesenteric adenitis. She notes the blood work taken at the time showed acute renal failure, though she is unsure of what caused it. They thought it might be related to her medications. She denies any chance of . She denies being sexually active. She denies any abnormal vaginal bleeding or discharge. She has a history of UTI, though denies any related symptoms. Source of History: patient Onset: September 03, 2017 Position: back (lower) Quality: sharp Timing: intermittent Associated Symptoms: + nausea, No vomiting, No abdominal pain, No diarrhea Note: She feels hot. Review of Systems See HPI for pertinent positives & negatives. A total of 10 systems reviewed and were otherwise negative. Past Medical & Surgical Medical Problems: (1) Abdominal pain (2) Acute kidney failure (3) Acute renal failure (4) Mesenteric adenitis (5) Nausea and vomiting (6) No chronic problems (7) Rheumatoid arthritis Family History Appendicitis Social History Smoking Status: Never Smoker Drug Use: none Marital Status: single Housing Status: lives with roommate Occupation Status: [employer] student Current/Historical Medications Scheduled Control Pills ( Control Pills), 1 TAB PO DAILY Cholecalciferol (Vitamin D3), 5,000 INTER.UNIT PO DAILY Levothyroxine Sodium (Levothyroxine Sodium), 75 MCG PO DAILY Scheduled PRN Tramadol (Ultram), 50 MG PO Q8H PRN for Pain Allergies Coded Allergies: No Known Allergies (Unverified , 09/21/16) Physical Exam Vital Signs Date Time Temp Pulse Resp B/P (MAP) Pulse Ox O2 Delivery O2 Flow Rate FiO2 09/05/17 21:39 89 149/98 98 09/05/17 20:02 97 16 157/104 97 Room Air 09/05/17 16:55 36.9 92 18 151/102 99 Room Air Physical Exam Constitutional: Vital signs reviewed. Eyes: Pupils are equal round reactive to light. Conjunctiva are noninjected. ENT: Pharynx is clear without erythema or exudate. Mucous membranes are moist. Neck supple without meningeal signs. No midline tenderness to cervical spine. Respiratory: Clear to auscultation bilaterally. Breath sounds are equal bilaterally. Cardiovascular: Regular rate and rhythm. No rubs or gallops. GI: Soft, nondistended and nontender. Bowel sounds are present. Musculoskeletal: No peripheral edema. No lower extremity tenderness. No CVA tenderness. No hip tenderness. Positive straight leg raise on left side. Integumentary: No cyanosis. Neurological: The patient is awake and alert. No focal deficits. Psychiatric: Normal affect. Medical Decision & Procedures ER Provider Diagnostic Interpretation: Radiology results as stated below per my review and the radiologist's interpretation: RENAL ULTRASOUND HISTORY: left back pain eval for stone/hydro COMPARISON: KUB 09/22/2016. Abdomen and pelvis CT 09/17/2016. FINDINGS: Right kidney: 10.5 cm. No hydronephrosis. Normal corticomedullary differentiation and cortical thickness. Left kidney: 10.5 cm. No hydronephrosis. Normal corticomedullary differentiation and cortical thickness. Bladder: No bladder wall thickening. The bilateral ureteral jets were identified. IMPRESSION: Normal renal ultrasound. Electronically signed by: Azam Sotomayor M.D. 09/05/2017 7:47 PM Dictated Date/Time: 09/05/2017 7:47 PM LUMBAR SPINE 5 VIEWS HISTORY: Low back pain. COMPARISON: None. FINDINGS: There is no fracture. No subluxation. Disc spaces are preserved. S1 is demonstrated to be a transitional vertebra. IMPRESSION: No fracture or subluxation within the lumbar spine. Electronically signed by: Azam Sotomayor M.D. 09/05/2017 8:33 PM Dictated Date/Time: 09/05/2017 8:30 PM Laboratory Results 09/05/17 18:55 Red Blood Count 4.83, Mean Corpuscular Volume 84.7, Mean Corpuscular Hemoglobin 29.0, Mean Corpuscular Hemoglobin Concent 34.2, Mean Platelet Volume 8.6, Neutrophils (%) (Auto) 64.9, Lymphocytes (%) (Auto) 29.2, Monocytes (%) (Auto) 5.1, Eosinophils (%) (Auto) 0.4, Basophils (%) (Auto) 0.1, Neutrophils # (Auto) 4.81, Lymphocytes # (Auto) 2.17, Monocytes # (Auto) 0.38, Eosinophils # (Auto) 0.03, Basophils # (Auto) 0.01 09/05/17 18:55 Test 09/05/17 17:30 09/05/17 18:55 Urine Color YELLOW Urine Appearance CLEAR (CLEAR) Urine pH 5.5 (4.5-7.5) Urine Specific [place] 1.021 (1.000-1.030) Urine Protein NEG (NEG) Urine Glucose (UA) NEG (NEG) Urine Ketones NEG (NEG) Urine Occult Blood NEG (NEG) Urine Nitrite NEG (NEG) Urine Bilirubin NEG (NEG) Urine Urobilinogen NEG (NEG) Urine Leukocyte Esterase NEG (NEG) Urine Test NEG (NEG) White Blood Count 7.42 K/uL (4.8-10.8) Red Blood Count 4.83 M/uL (4.2-5.4) Hemoglobin 14.0 g/dL (12.0-16.0) Hematocrit 40.9 % (37-47) Mean Corpuscular Volume 84.7 fL (80-100) Mean Corpuscular Hemoglobin 29.0 pg (25-34) Mean Corpuscular Hemoglobin Concent 34.2 g/dl (32-36) Platelet Count 315 K/uL (130-400) Mean Platelet Volume 8.6 fL (7.4-10.4) Neutrophils (%) (Auto) 64.9 % Lymphocytes (%) (Auto) 29.2 % Monocytes (%) (Auto) 5.1 % Eosinophils (%) (Auto) 0.4 % Basophils (%) (Auto) 0.1 % Neutrophils # (Auto) 4.81 K/uL (1.4-6.5) Lymphocytes # (Auto) 2.17 K/uL (1.2-3.4) Monocytes # (Auto) 0.38 K/uL (0.11-0.59) Eosinophils # (Auto) 0.03 K/uL (0-0.5) Basophils # (Auto) 0.01 K/uL (0-0.2) RDW Standard Deviation 40.5 fL (36.4-46.3) RDW Coefficient of Variation 13.3 % (11.5-14.5) Immature Granulocyte % (Auto) 0.3 % Immature Granulocyte # (Auto) 0.02 K/uL (0.00-0.02) Anion Gap 10.0 mmol/L (3-11) Est Creatinine Clear Calc Drug Dose 108.2 ml/min Estimated GFR () 127.9 Estimated GFR (Non- 110.4 BUN/Creatinine Ratio 12.5 (10-20) Calcium Level 9.5 mg/dl (8.5-10.1) Total Bilirubin 0.2 mg/dl (0.2-1) Direct Bilirubin < 0.1 mg/dl (0-0.2) Aspartate Amino Transf (AST/SGOT) 15 U/L (15-37) Alanine Aminotransferase (ALT/SGPT) 24 U/L (12-78) Alkaline Phosphatase 46 U/L (45-117) Total Protein 7.7 gm/dl (6.4-8.2) Albumin 3.5 gm/dl (3.4-5.0) Lipase 174 U/L (73-393) Laboratory results as reviewed by me. Medications Administered Medications (Trade) Dose Ordered Sig/Sara Route Start Time Stop Time Status Last Admin Dose Admin Sodium Chloride 1,000 ml @ 999 mls/hr Q1H1M STAT IV 09/05/17 17:11 09/05/17 18:11 DC 09/05/17 18:04 999 MLS/HR Ketorolac Tromethamine (Toradol Inj) 10 mg NOW STAT IV 09/05/17 19:58 09/05/17 19:59 DC 09/05/17 20:23 10 MG ED Course 1705: The patient was evaluated in room B9. A complete history and physical exam was performed. 1711: Ordered Sodium Chloride 1,000 ml @ 999 mls/hr IV 8: Ordered Toradol 10 mg IV 2020: I reassessed the patient at this time. She is still having back pain. 2100: I reassessed the patient at this time. She is still having back pain. Mild tenderness to left SI joint. I encouraged her to followup with S. I discussed the results and treatment plan with the patient. I answered all pertaining questions that she had. She expressed understanding and verbalized agreement. The patient will be discharged home. 2114: Ordered Tramadol 1 homepack PO Medical Decision This is a 21-year-old female presents with left-sided lower back pain. Differential diagnosis includes strain, lumbar disc disease, sacroiliitis, kidney stone, UTI. I did perform a limited focused review of portions of the patient's old chart on the electronic medical record. The patient had a CT in September 2016, which showed mild mesenteric adenitis. There were no kidney stones. I did evaluate the patient as noted above. The patient is presenting with left lower back pain. She does not have any abdominal pain. She does have a positive straight leg raise on the left side, although she denies any radiation of pain down her leg. IV access was established. Urinalysis was unremarkable without signs of infection or blood. Urine test is negative. I did order and personally review the patient's lumbar spine x-ray as described above. There is no evidence of fracture or dislocation. I did order and review the patient's blood work as noted in the electronic medical record. Her white blood cell count is not elevated. LFTs are normal. Electrolytes are unremarkable. I did order an ultrasound of the kidneys. I did review the images myself as well as the radiology report as described above. This did not show any signs of hydronephrosis or acute abnormality. I did reassess the patient. She is still having pain. I did treat her with Toradol IV. On reexamination her pain is localized to her left SI joint where she does have some tenderness. I did recommend avoiding any significant physical activity. She was advised to take anti-inflammatories and was given tramadol for breakthrough pain. She was discharged with a prescription for tramadol. She was advised follow closely with [facility] and to return should she have any worsening symptoms or develop any new symptoms as outlined below. She was discharged in good condition. [place] Drug Monitoring Program Drug Monitoring Findings: No matching patients. Medication Reconcilliation Current Medication List: was personally reviewed by me Blood Pressure Screening Patient's blood pressure: Elevated blood pressure Blood pressure disposition: Referred to PCP Impression Primary Impression: Left-sided low back pain without sciatica Scribe Attestation The scribe's documentation has been prepared under my direct and personally reviewed by me in its entirety. I confirm that the note above accurately reflects all work, treatment, procedures, and medical decision making performed by me. Departure Information Dispostion Home / Self-Care Prescriptions Tramadol (Ultram) 50 Mg Tab 50 MG PO Q8H Y for Pain, #14 TAB Prov: En Jauregui M.D. 09/05/17 Referrals No Doctor, Assigned (PCP) Forms HOME CARE DOCUMENTATION FORM, IMPORTANT VISIT INFORMATION Patient Instructions My [facility] Additional Instructions You have been examined and treated today on an emergency basis only. This is not a substitute for, or an effort to provide, complete comprehensive medical care. It is impossible to recognize and treat all injuries or illnesses in a single emergency department visit. It is therefore important that you follow up closely with your physician. Call as soon as possible for an appointment. Return for worsening symptoms or if you develop fever, vomiting, abdominal pain , loss of control of your bowel or bladder, numbness or weakness to your legs, numbness to your private area, difficulty urinating, or any other concerning symptoms. Problem Qualifiers Primary Impression: Left-sided low back pain without sciatica Chronicity: acute Qualified Codes: M54.5 - Low back pain
== END 2017-09-05 21:15 | disposition home or self-care (01) ==
LOC: C.EDB 16:35
DX: M54.5 Low back pain (principal); M06.9 Rheumatoid arthritis, unspecified; Z87.440 Personal history of urinary (tract) infections; Z83.79 Family history of other diseases of the digestive system